=== PATIENT | female | born 1965 | race Caucasian/White ===

== ENCOUNTER 2025-08-09 20:33 | Inpatient (IN) | payer OTHER, SELFPAY ==
--- OUTSIDE RECORDS SUMMARY | 2025-08-08 00:29 | XMS_ITS | Encounter Summary ---
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 Respiratory: No respiratory distress Neuro: Speech is clear however slightly pressured. Gait is normal and steady The patient will remain in observation status until a safe disposition arises. Position pending evaluation by behavioral team Discharge day management more than 30 minutes?: No CHOCO Mancini PA 08/09/25 1130 CHOCO Mancini 08/09/25 1424 * ED Obs Note - Gianni Gardner MD - 08/08/2025 7:36 AM EDT ED Observation Daily Note Service Date: 08/08/2025 Patient seen and examined Patient without any new complaints today remains manic with flight of ideas and pressured speech. Denies suicidal homicidal ideation. 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 General: Comfortable in no apparent distress. Appears manic. HEENT: Atraumatic, normocephalic. Lids normal. External ears are normal in appearance. No external signs of trauma. No epistaxis. Cardiac: Appers well perfused. Pulmonary: Respirations are even and unlabored. No respiratory distress. Abdomen: Appears flat, non-distended. Extremities/MSK: No edema in the legs apparent. Skin: Warm and dry without any rashes visible. Neuro: Alert and oriented x 3, no facial droop, speaking without dysarthria, moving all 4 extremities. Psych: Thought content is illogical and appears manic, not appearing to respond to internal stimuli, speech is pressured speech. Denies suicidal ideation. Remains medically stable for psychiatric placement this morning. Clinical Impression Krista (HCC) (Primary) MD Gianni Ferrari MD 08/08/25 1410 * Psych Progress Note - Elda Crouch - 08/08/2025 6:36 AM EDT Laura is boarding, waiting for Psychiatric IP admission. She was recently discharged from [facility], but they have no beds. [facility] unit is reviewing, and [facility] too. documented in this encounter Plan of Treatment Pending Results Name Type Priority Associated Diagnoses Date /Time ECG 12 lead ECG STAT 08/09/2025 1: 13 PM EDT documented as of this encounter Procedures Procedure Name Priority Date/Time Associated Diagnosis Comments ECG 12-LEAD STAT 08/09/2025 1:13 PM EDT Procedure Note - 08/09/2025 1:13 PM EDTThis note is in progress. SINUS BRADYCARDIA NONSPECIFIC ST ELEVATION [0.05+ mV ST ELEVATION] BORDERLINE ECG SARS COV2/INFLUENZA A/B AND RSV STAT 08/08/2025 6:49 AM EDT DRUG SCREEN, URINE STAT 08/08/2025 1: 44 AM EDT URINALYSIS WITH URINE CULTURE REFLEX STAT 08/08/2025 1:44 AM EDT CBC AND DIFFERENTIAL STAT 08/08/2025 1:43 AM EDT TOXICOLOGY SCREEN, BLOOD STAT 08/08/2025 1:43 AM EDT CBC AND DIFFERENTIAL STAT 08/08/2025 1:43 AM EDT MAGNESIUM Routine 08/08/2025 1:43 AM EDT BASIC METABOLIC PANEL STAT 08/08/2025 1:43 AM EDT documented in this encounter Results * Coronavirus SARS-CoV-2, Influenza A/B and RSV (08/08/2025 6:49 AM EDT) Coronavirus SARS-CoV-2 Negative Negative 08/08/2025 7:45 AM EDT [facility] Influenza A Negative Negative 08/08/2025 7:45 AM EDT [facility] Influenza B Negative Negative 08/08/2025 7:45 AM EDT [facility] RSV by PCR Negative Negative 08/08/2025 7:45 AM EDT [facility] Respiratory NASOPHARYNGEAL SWAB / Unknown Collection / Unknown 08/08/2025 6:49 AM EDT 08/08/2025 6:56 AM EDT [facility] - 08/08/2025 7:45 AM EDT Test performed with goviral GeneXpert SARS-CoV-2 PCR assay, which has received emergency use authorization (EUA) by the U.S. Food and Drug Administration. Negative results do not preclude SARS-CoV-2 infection and should not be used as the sole basis for treatment or other patient management decisions. us Timothy Fernandez MD BODY FLUIDS AND STOOLS ORDERABL ES Final Result [facility] [address] [place] [id number], * (ABNORMAL) Urinalysis with Reflex to Urine Culture (mid-stream) (08/08/2025 1:44 AM EDT) Color, Urine Yellow Yellow 08/08/2025 2:12 AM EDT [facility] Clarity, Urine Clear Clear 08/08/2025 2:12 AM EDT [facility] pH, Urine 7.0(H) 5.0 - 6.0 08/08/2025 2:12 AM [facility] Protein, Urine Negative Negative, 1+ 08/08/2025 2:12 AM [facility] Glucose, Urine Negative Negative 08/08/2025 2:12 AM [facility] Ketone, Urine Trace Negative, Trace 08/08/2025 2:12 AM [facility] Bilirubin, Urine Negative Negative 08/08/2025 2:12 AM [facility] Urobilinogen, Urine Negative 0.2-1.0 mg/dL 08/08/2025 2:12 AM [facility] Blood, Urine Negative Negative 08/08/2025 2:12 AM [facility] Leukocyte Esterase, Urine Negative Negative 08/08/2025 2:12 AM [facility] Nitrite, Urine Negative Negative 08/08/2025 2:12 AM [facility] Specific Elma, Urine 1.013 1.005 - 1.030 08/08/2025 2:12 AM [facility] White Blood Cells, Urine 0-2 <5 cells/HPF 08/08/2025 2:12 AM [facility] Red Blood Cell, Urine 0-2 <2 cells/HPF 08/08/2025 2:12 AM [facility] Bacteria Urine None Seen None Seen 08/08/2025 2:12 AM [facility] Mucous Threads Trace None Seen, Trace 08/08/2025 2:12 AM [facility] Urine MID-STREAM URINE SPECIMEN / Unknown Collection / Unknown 08/08/2025 1:44 AM EDT 08/08/2025 1:48 AM EDT us Timothy Fernandez MD URINE ORDERABLES Final Result [facility] [address] [place] [id number], * Drug Screen, Urine (08/08/2025 1:44 AM EDT) Amphetamines Screen, Urine Negative Negative 08/08/2025 2:18 AM [facility] Barbiturates Screen, Urine Negative Negative 08/08/2025 2:18 AM [facility] Benzodiazepine Screen, Urine Negative Negative 08/08/2025 2:18 AM [facility] Buprenorphine Screen, Urine Negative Negative 08/08/2025 2:18 AM [facility] Cannabinoids Screen, Urine Negative Negative 08/08/2025 2:18 AM [facility] Cocaine Metabolite Screen, Urine Negative Negative 08/08/2025 2:18 AM [facility] Fentanyl Screen, Urine Negative Negative 08/08/2025 2:18 AM [facility] Methadone Screen, Urine Negative Negative 08/08/2025 2:18 AM [facility] Opiates Screen, Urine Negative Negative 08/08/2025 2:18 AM [facility] Oxycodone Screen, Urine Negative Negative 08/08/2025 2:18 AM [facility] Propoxyphene Screen, Urine Negative Negative 08/08/2025 2:18 AM [facility] Tricyclics Screen Negative Negative 2:18 AM [facility] Comment 08/08/2025 2:18 AM [facility] Comment: The cut-off concentration for a positive result for each drug is listed below: Drug Cut-off value Amphetamines >1000 ng/mL Barbiturates >200 ng/mL Benzodiazepines >300 ng/mL Buprenorphine >5 ng/mL Cannabinoids >50 ng/mL Cocaine >300 ng/mL Fentanyl >5.0 ng/mL Opiates >300 ng/mL Methadone >300 ng/mL Oxycodone >100 ng/mL This is only a screening; positive results are not confirmed by a second method; The results must be used for medical purposes only. Urine URINE SPECIMEN / Unknown Collection / Unknown 08/08/2025 1:44 AM EDT 08/08/2025 1:48 AM EDT us Timothy Fernandez MD URINE ORDERABLES Final Result [facility] [address] [place] [id number], [place] * Magnesium (08/08/2025 1:43 AM EDT) Magnesium, Blood 2.1 1.6 - 2.6 mg/dL 08/08/2025 3:13 AM EDT [facility] Blood PERIPHERAL BLOOD SPECIMEN / Unknown Venipuncture / Unknown 08/08/2025 1:43 AM EDT 08/08/2025 1:48 AM EDT us Timothy Fernandez MD LAB BLOOD ORDERABLES Final Resu lt [facility] [address] [place] [address], [place] * CBC and Differential (08/08/2025 1:43 AM EDT) Pathologist [facility] WBC 6.67 3.90 - 10.80 K/uL 08/08/2025 [facility] RBC 4.39 3.93 - 5.29 M/uL 08/08/2025 1:51 AM [facility] Hemoglobin 13.3 12.0 - 15.2 g/dL 08/08/2025 1:51 AM [facility] Hematocrit 40.1 34.1 - 44.9 % 08/08/2025 1:51 AM [facility] MCH 30.3 25.6 - 32.2 pg 08/08/2025 1:51 AM [facility] MCHC 33.2 32.0 - 36.0 g/dL 08/08/2025 1:51 AM [facility] MCV 91 81 - 96 fL 08/08/2025 1:51 AM [facility] RDW 12.6 11.5 - 14.0 % 08/08/2025 1:51 AM [facility] Platelet Count 285 154 - 369 K/uL 08/08/2025 1:51 AM [facility] Neutrophil 59.8 % 08/08/2025 1:51 AM [facility] Lymphocyte 29.4 % 08/08/2025 1:51 AM [facility] Monocyte 8.5 % 08/08/2025 1:51 AM [facility] Eosinophil 1.2 % 08/08/2025 1:51 AM [facility] Basophil 0.7 % 08/08/2025 1:51 AM [facility] Immature Granulocyte (Loring, Myelo, Promyelocyte) 0.4 % 08/08/2025 1:51 [facility] Absolute Neutrophil Count 3.98 1.68 - 7.99 K/uL 08/08/2025 1:51 AM [facility] Absolute Immature Granulocyte (Loring, Myelo, Promyelocyte) 0.03 0.00 - 0.09 K/uL 08/08/2025 1:51 AM [facility] Absolute Lymphocyte Count 1.96 0.66 - 4.75 K/uL 08/08/2025 1:51 AM [facility] Absolute Monocyte Count 0.57 0.16 - 1.40 K/uL 08/08/2025 1:51 AM [facility] Absolute Eosinophil Count 0.08 0.00 - 0.60 K/uL 08/08/2025 1:51 AM [facility] Absolute Basophil Count 0.05 0.00 - 0.32 K/uL 08/08/2025 1:51 AM [facility] Blood PERIPHERAL BLOOD SPECIMEN / Unknown Venipuncture / Unknown 08/08/2025 1:43 AM EDT 08/08/2025 1:48 AM EDT us Timothy Fernandez MD LAB BLOOD ORDERABLES Final Resu lt [facility] [address] [place] [address], [place] * (ABNORMAL) Plasma Toxicology Screen (08/08/2025 1:43 AM EDT) Acetaminophen Result,Blood <5(L) 10 - 30 ug/mL 08/08/2025 2:09 AM [facility] Alcohol <10 <10 mg/dL 08/08/2025 2:09 AM [facility] Salicylate Level, Blood <1 <30 mg/dL 08/08/2025 2:09 AM [facility] Blood PERIPHERAL BLOOD SPECIMEN / Unknown Venipuncture / Unknown 08/08/2025 1:43 AM EDT 08/08/2025 1:48 AM EDT us Timothy Fernandez MD LAB BLOOD ORDERABLES Final Resu lt [facility] [address] [place] [address], * (ABNORMAL) Basic Metabolic Panel (08/08/2025 1:43 AM EDT) Sodium 139 135 - 146 mmol/L 08/08/2025 2:08 AM [facility] Potassium 4.1 3.4 - 5.2 mmol/L 08/08/2025 2:08 AM [facility] Chloride 102 98 - 110 mmol/L 08/08/2025 2:08 AM [facility] Total CO2/Bicarbonat e 24 24 - 32 mmol/L 08/08/2025 2:08 AM [facility] Anion Gap 13 2 - 15 mmol/L 08/08/2025 2:08 AM [facility] Anion Gap 13 2 - 15 mmol/L 08/08/2025 2:08 AM [facility] BUN 13 7 - 24 mg/dL 08/08/2025 2:08 AM [facility] Creatinine, Blood 0.80 0.50 - 1.10 mg/dL 08/08/2025 2:08 AM [facility] Glucose, Blood 111(H) 50 - 100 mg/dL 08/08/2025 2:08 AM [facility] Calcium 9.0 8.5 - 10.5 mg/dL 08/08/2025 2:08 AM [facility] Estimated GFR(CKD-EPI) 84 mL/min/BSA 08/08/2025 2:08 AM [facility] Blood PERIPHERAL BLOOD SPECIMEN / Unknown Venipuncture / Unknown 08/08/2025 1:43 AM EDT 08/08/2025 1:48 AM EDT us Timothy Fernandez MD LAB BLOOD ORDERABLES Final Resu lt [facility] [address] [place] [address], documented in this encounter Visit Diagnoses Diagnosis Krista (HCC)- Primary Bipolar I disorder, single manic episode, unspecified Bipolar affective disorder, manic, severe, with psychotic behavior (HCC) Bipolar I disorder, most recent episode (or current) manic, severe, specified as with psychotic behavior documented in this encounter Administered Medications Inactive Administered Medications - up to 3 most recent administrations Medication Order MAR Action Action Date Dose Rate Site acetaminophen (TYLENOL) tablet 1,000 mg 1,000 mg, Oral, Once, 1 dose, On Fri08/08/25 at 0253 Given 08/08/2025 3:08 AM EDT 1,000 mg docusate sodium (COLACE) 50 mg/5 mL liquid 50 mg 50 mg, Oral, 2 times daily PRN, Starting on Fri08/09/25 at 1048, Until Fri08/09/25 at 2020, constipation ibuprofen (MOTRIN) tablet 400 mg 400 mg, Oral, Once as needed, 1 dose, Starting on Fri08/08/25 at 0252, Until Fri08/08/25 at 2207, mild (1-3) pain, moderate (4-6) pain Given 08/08/2025 10:07 PM EDT 400 mg lamoTRIgine (LaMICtal) tablet 75 mg 75 mg, Oral, Daily, First dose on Fri08/08/25 at 0900, Until Discontinued Given 08/09/2025 9:39 AM EDT 75 mg Given 08/08/2025 8:29 AM EDT 75 mg methyl salicylate-menthol (BENGAY, ICY HOT) cream Topical, Every 6 hours PRN, mild (1-3) pain, moderate (4-6) pain, Starting on Fri08/09/25 at 0856, Apply to affected area naproxen (NAPROSYN) tablet 250 mg 250 mg, Oral, Once, 1 dose, On Fri08/09/25 at 0856 Given 08/09/2025 9:39 AM EDT 250 mg OXcarbazepine (TRILEPTAL) tablet 300 mg 300 mg, Oral, 2 times daily, First dose on Fri08/08/25 at 0900, Until Discontinued Given 08/09/2025 9:39 AM EDT 300 m g Given 08/08/2025 10:07 PM EDT 300 mg Given 08/08/2025 8:29 AM EDT 300 mg perphenazine (TRILAFON) tablet 2 mg 2 mg, Oral, At bedtime, First dose on Fri08/08/25 at 2100, Until Discontinued Given 08/08/2025 10:07 PM EDT 2 mg QUEtiapine (SEROquel) tablet 75 mg 75 mg, Oral, At bedtime, First dose on Fri08/08/25 at 2100, Until Discontinued Given 08/08/2025 10:07 PM EDT 75 mg documented in this encounter Active and Recently Administered Medications Times are shown in EDT. Scheduled Medication Order 08/07/2025 08/08/2025 08/09/2025 acetaminophen (TYLENOL) tablet 1,000 mg (COMPLETED) 1,000 mg, Oral, Once, 1 dose, On Fri08/08/25 at 0253 0308 (Given - Provider: Soheila Gilliam RN) lamoTRIgine (LaMICtal) tablet 75 mg 75 mg, Oral, Daily, First dose on Fri08/08/25 at 0900, Until Discontinued 828 (Given - Provider: An Reyes RN) 09 (Given - Provider: An Reyes RN) naproxen (NAPROSYN) tablet 250 mg (COMPLETED) 250 mg, Oral, Once, 1 dose, On Fri08/09/25 at 0856 0939 (Given - Provid er: An Reyes RN) naproxen (NAPROSYN) tablet 500 mg 500 mg, Oral, At bedtime, First dose on Fri08/08/25 at 2300, Until Discontinued 2252 (Not Given - Provider: Amie Boone RN - Reason: Other - Indicate below - Comment: took ibuprofen) OXcarbazepine (TRILEPTAL) tablet 300 mg 300 mg, Oral, 2 times daily, First dose on Fri08/08/25 at 0900, Until Discontinued 828 (Given - Provider: An Reyes RN)2206 (Given - Provider: Amie Boone RN) 938 (Given - Provider: An Reyes RN) perphenazine (TRILAFON) tablet 2 mg 2 mg, Oral, At bedtime, First dose on Fri08/08/25 at 2100, Until Discontinued 2206 (Given - Provider: Amie Boone RN) QUEtiapine (SEROquel) tablet 75 mg 75 mg, Oral, At bedtime, First dose on Fri08/08/25 at 2100, Until Discontinued 2206 (Given - Provider: Amie Boone RN) PRN Medication Order 08/07/2025 08/08/2025 08/09/2025 diclofenac sodium (VOLTAREN) 1 % gel (pt's own home med) Apply to affected area 3 times a day as needed for aching hands 1 g, Topical, 3 times daily PRN, Starting on Fri08/08/25 at 2231, Until Fri08/09/25 at 2020, aching hands docusate sodium (COLACE) 50 mg/5 mL liquid 50 mg 50 mg, Oral, 2 times daily PRN, Starting on Fri08/09/25 at 1048, Until Fri08/09/25 at 2019, constipation ibuprofen (MOTRIN) tablet 400 mg (COMPLETED) 400 mg, Oral, Once as needed, 1 dose, Starting on Fri08/08/25 at 0252, Until Fri08/08/25 at 2206, mild (1-3) pain, moderate (4-6) pain 2206 (Given - Provider: Amie Boone RN) methyl salicylate-menthol (BENGAY, ICY HOT) cream Topical, Every 6 hours PRN, mild (1-3) pain, moderate (4-6) pain, Starting on Fri08/09/25 at 0856, Apply to affected area documented in this encounter Additional Health Concerns Infection Onset Date Last Indicated Resolved Time Rule-Out Respiratory Virus 08/08/2025 08/08/2025 0 08/08/2025 7:45 AM EDT documented as of this encounter Care Teams Watch Repair Technician Relationship Specialty Start Date End Date Morales Oh [address] [facility] [address] [place] [address] PCP - Insurance Assigned PCP 08/08/25 Morales Oh [address] [facility] [address] [place] [address] PCP - General 08/08/25 documented as of this encounter
--- OUTSIDE RECORDS SUMMARY | 2025-08-09 20:39 | XMS_ITS | Clinical Summary ---
Author Organization [facility] Address [address] [place] [address] Care Team Providers Care Technical Mgr Name Role Phone Morales Oh Unavailable [phone] Morales Ohrandal Primary Care Provider [phone] Allergies Active Allergy Reactions Criticality Noted Date Comments Sulphated Oil Hives Medications * This document contains information received from the source organization and may not represent a complete record from that organization. lamoTRIgine (LaMICtal) 150 MG tablet Take 0.5 tablets (75 mg total) by mouth daily. 5 Active OXcarbazepine (TRILEPTAL) 150 MG tablet Take 2 tablets (300 mg total) by mouth 2 times a day. Active perphenazine (TRILAFON) 2 MG tablet Take 1 tablet (2 mg total) by mouth at bedtime. Active QUEtiapine (SEROquel) 25 MG tablet Take 3 tablets (75 mg total) by mouth at bedtime. Active diclofenac sodium (VOLTAREN) 1 % GelIndications: pain Apply 1 g topically 3 times a day as needed (pain). Active naproxen (EC NAPROSYN) 500 MG EC tablet Take 1 tablet (500 mg total) by mouth at bedtime. Active Encounters Date Type Department Care Team Description 08/08/2025 12:29 AM EDT - 08/09/2025 5:45 PM EDT Hospital Encounter [facility] Emergency Department [address] [place] [address] Timothy Fernandez MD [place]field, Scott, MD Gacioch, Brian Q, MD Snyder, Michael, MD Casillas, Yolie E, DO Estela (HCC) (Primary Dx); Bipolar affective disorder, manic, severe, with psychotic behavior (HCC) Discharge Disposition: Psychiatric Hospital 08/08/2025 Travel from Last 3 Months Family History Medical History Relation Comments Depression Father Post-traumatic stress disorder Mother Relation Status Comments Father Mother Social History Tobacco Use Types Packs/Day Years [...] any time in the past 12 m [facility], were you homeless or living in a care home (including now)? No 08/08/2025 [facility] Utilities Answer Date Recorded In the past [...] AM EDT Sexual Orientation Not on file Last Filed Vital Signs Vital Sign Reading Time Taken Comments Blood Pressure 130/88 08/09/2025 5:41 PM EDT Pulse 58 08/09/2025 5:41 PM EDT Temperature 36.5 C (97.7 F) 08/09/2025 7:21 AM EDT Respiratory Rate 18 08/09/2025 5:41 PM EDT Oxygen Saturation 98% 08/09/2025 5:41 PM EDT Inhaled Oxygen Concentration - - Weight - - Height - - Body Mass Index - - Plan of Treatment Health Maintenance Due Date Last Done Comments Lipid Panel 1964 Depression Screening 1968 Hepatitis C Screening 1982 DTaP,Tdap,and Td Vaccines (1 - Tdap) 1983 Pap Smear 1985 Cervical Cancer Screening 1994 HPV/Cotest 1994 Breast Cancer Screening 2004 CT Colonography 2009 Colonoscopy 2009 Colorectal Cancer Screening 2009 FIT 2009 FOBT 2009 Multitarget Stool DNA (Cologuard) 2009 Sigmoidoscopy 2009 Pneumococcal Vaccine (1 of 1 - PCV) 2014 Zoster Vaccine (1 of 2) 2014 COVID-19 Vaccine (1 - 2023-2 5 season) 2025 Influenza Vaccine (#1) 2025 Blood Pressure 08/09/2026 08/09/2025 Meningococcal B Vaccines Aged Out No longer eligible based on patient's age to complete this topic Meningococcal Vaccines Aged Out No lo nger eligible based on patient's age to complete this topic Pneumococcal Vaccine: Pediat rics (0 to 5 Years) and At-Risk Patients (6 to 64 Years) Aged Out No longer eligi ble based on patient's age to complete this topic Procedures Procedure Name Priority Date/Time Associated Diagnosis Comments ECG 12-LEAD STAT 08/09/2025 1:13 PM EDT Procedure Note - 08/09/2025 1:13 PM EDTThis note is in progress. SINUS BRADYCARDIA NONSPECIFIC ST ELEVATION [0.05+ mV ST ELEVATION] BORDERLINE ECG SARS COV2/INFLUENZA A/B AND RSV STAT 08/08/2025 6:49 AM EDT URINALYSIS WITH URINE CULTURE REFLEX STAT 08/08/2025 1:44 AM EDT DRUG SCREEN, URINE STAT 08/08/2025 1: 44 AM EDT CBC AND DIFFERENTIAL STAT 08/08/2025 1:43 AM EDT MAGNESIUM Routine 08/08/2025 1:43 AM EDT CBC AND DIFFERENTIAL STAT 08/08/2025 1:43 AM EDT TOXICOLOGY SCREEN, BLOOD STAT 08/08/2025 1:43 AM EDT BASIC METABOLIC PANEL STAT 08/08/2025 1:43 AM EDT from Last 3 Months Results * Coronavirus SARS-CoV-2, Influenza A/B and RSV (08/08/2025 6:49 AM EDT) Coronavirus SARS-CoV-2 Negative Negative 08/08/2025 7:45 AM EDT [facility] Influenza A Negative Negative 08/08/2025 7:45 AM EDT [facility] Influenza B Negative Negative 08/08/2025 7:45 AM EDT [facility] RSV by PCR Negative Negative 08/08/2025 7:45 AM EDT [facility] Respiratory NASOPHARYNGEAL SWAB / Unknown Collection / Unknown 08/08/2025 6:49 AM EDT 08/08/2025 6:56 AM EDT [facility] - 08/08/2025 7:45 AM EDT Test performed with [employer] GeneXpert SARS-CoV-2 PCR assay, which has received emergency use authorization (EUA) by the U.S. Food and Drug Administration. Negative results do not preclude SARS-CoV-2 infection and should not be used as the sole basis for treatment or other patient management decisions. us Timothy Fernandez MD BODY FLUIDS AND STOOLS ORDERABL ES Final Result [facility] [address] [place] [address], * Drug Screen, Urine (08/08/2025 1:44 AM EDT) Amphetamines Screen, Urine Negative Negative 08/08/2025 2:18 AM EDT [facility] Barbiturates Screen, Urine Negative Negative 08/08/2025 2:18 AM EDT [facility] Benzodiazepine Screen, Urine Negative Negative 08/08/2025 2:18 AM [facility] Buprenorphine Screen, Urine Negative Negative 08/08/2025 2:18 AM [facility] Cannabinoids Screen, Urine Negative Negative 08/08/2025 2:18 AM [facility] Cocaine Metabolite Screen, Urine Negative Negative 08/08/2025 2:18 AM [facility] Fentanyl Screen, Urine Negative Negative 08/08/2025 2:18 AM [facility] Methadone Screen, Urine Negative Negative 08/08/2025 2:18 AM [facility] Opiates Screen, Urine Negative Negative 08/08/2025 2:18 AM [facility] Oxycodone Screen, Urine Negative Negative 08/08/2025 2:18 AM [facility] Propoxyphene Screen, Urine Negative Negative 08/08/2025 2:18 AM [facility] Tricyclics Screen Negative Negative 2:18 AM [facility] Comment 08/08/2025 2:18 AM [facility] Comment: The cut-off concentration for [...] Timothy Fernandez MD URINE ORDERABLES Final Result [facility] [address] [place] [address], [place] * (ABNORMAL) Urinalysis with Reflex to Urine Culture (mid-stream) (08/08/2025 1:44 AM EDT) Color, Urine Yellow Yellow 08/08/2025 2:12 AM [facility] Clarity, Urine Clear Clear 08/08/2025 2:12 AM [facility] pH, Urine 7.0(H) 5.0 - 6.0 08/08/2025 2:12 AM [facility] Protein, Urine Negative Negative, 1+ 08/08/2025 2:12 AM [facility] Glucose, Urine Negative Negative 08/08/2025 2:12 AM [facility] Ketone, Urine Trace Negative, Trace 08/08/2025 2:12 AM [facility] Bilirubin, Urine Negative Negative 08/08/2025 2:12 AM [facility] Urobilinogen, Urine Negative 0.2-1.0 mg/dL 08/08/2025 2:12 AM [facility] Blood, Urine Negative Negative 08/08/2025 2:12 AM [facility] Leukocyte Esterase, Urine Negative Negative 08/08/2025 2:12 AM [facility] Nitrite, Urine Negative Negative 08/08/2025 2:12 AM [facility] Specific [place], Urine 1.013 1.005 - 1.030 08/08/2025 2:12 AM [facility] White Blood Cells, Urine 0-2 <5 cells/HPF 08/08/2025 2:12 AM [facility] Red Blood Cell, Urine 0-2 <2 cells/HPF 08/08/2025 2:12 AM [facility] Bacteria Urine None Seen None Seen 08/08/2025 2:12 AM [facility] Mucous Threads Trace None Seen, Trace 08/08/2025 2:12 AM [facility] Urine MID-STREAM URINE SPECIMEN / Unknown Collection / Unknown 08/08/2025 1:44 AM EDT 08/08/2025 1:48 AM EDT Timothy Fernandez MD URINE ORDERABLES Final Result [facility] [address] [place] [address], * CBC and Differential (08/08/2025 1:43 AM EDT) WBC 6.67 3.90 - 10.80 K/uL [facility] RBC 4.39 3.93 - 5.29 M/uL 08/08/2025 1:51 AM [facility] Hemoglobin 13.3 12.0 - 15.2 g/dL 08/08/2025 1:51 AM [facility] Hematocrit 40.1 34.1 - 44.9 % 08/08/2025 1:51 AM [facility] MCH 30.3 25.6 - 32.2 pg 08/08/2025 1:51 AM [facility] MCHC 33.2 32.0 - 36.0 g/dL 08/08/2025 1:51 AM [facility] MCV 91 81 - 96 fL 08/08/2025 1:51 AM [facility] RDW 12.6 11.5 - 14.0 % 08/08/2025 1:51 AM [facility] Platelet Count 285 154 - 369 K/uL 08/08/2025 1:51 AM [facility] Neutrophil 59.8 % 08/08/2025 1:51 AM [facility] Lymphocyte 29.4 % 08/08/2025 1:51 AM [facility] Monocyte 8.5 % 08/08/2025 1:51 AM [facility] Eosinophil 1.2 % 08/08/2025 1:51 AM [facility] Basophil 0.7 % 08/08/2025 1:51 AM [facility] Immature Granulocyte ([place], Myelo, Promyelocyte) 0.4 % 08/08/2025 1:51 AM [facility] Absolute Neutrophil Count 3.98 1.68 - 7.99 K/uL 08/08/2025 1:51 AM [facility] Absolute Immature Granulocyte ([place], Myelo, Promyelocyte) 0.03 0.00 - 0.09 K/uL 08/08/2025 1:51 AM EDT [facility] Absolute Lymphocyte Count 1.96 0.66 - 4.75 K/uL 08/08/2025 1:51 AM [facility] Absolute Monocyte Count 0.57 0.16 - 1.40 K/uL 08/08/2025 1:51 AM [facility] Absolute Eosinophil Count 0.08 0.00 - 0.60 K/uL 08/08/2025 1:51 AM [facility] Absolute Basophil Count 0.05 0.00 - 0.32 K/uL 08/08/2025 1:51 AM [facility] Blood PERIPHERAL BLOOD SPECIMEN / Unknown Venipuncture / Unknown 08/08/2025 1:43 AM EDT 08/08/2025 1:48 AM EDT us Timothy Fernandez MD LAB BLOOD ORDERABLES Final Resu lt Performing Organization Address [facility]/ZIP Co de Phone Number [facility] [address] [place] [phone], [place] * (ABNORMAL) Plasma Toxicology Screen (08/08/2025 1:43 AM EDT) Pathologist [facility] Acetaminophen Result,Blood <5(L) 10 - 30 ug/mL 08/08/2025 2:09 AM EDT [facility] Alcohol <10 <10 mg/dL 08/08/2025 2:09 AM EDT [facility] Salicylate Level, Blood <1 <30 mg/dL 08/08/2025 2:09 AM EDT [facility] Blood PERIPHERAL BLOOD SPECIMEN / Unknown Venipuncture / Unknown 08/08/2025 1:43 AM EDT 08/08/2025 1:48 AM EDT us Timothy Fernandez MD LAB BLOOD ORDERABLES Final Resu lt Performing Organization Address [facility]/ZIP Co de Phone Number [facility] [address] [place] [address], [place] * Magnesium (08/08/2025 1:43 AM EDT) Pathologist [facility] Magnesium, Blood 2.1 1.6 - 2.6 mg/dL 08/08/2025 3:13 AM [facility] Blood PERIPHERAL BLOOD SPECIMEN / Unknown Venipuncture / Unknown 08/08/2025 1:43 AM EDT 08/08/2025 1:48 AM EDT us Timothy Fernandez MD LAB BLOOD ORDERABLES Final Resu lt [facility] [address] [place] [address], [place] * (ABNORMAL) Basic Metabolic Panel (08/08/2025 1:43 AM EDT) [facility] Sodium 139 135 - 146 mmol/L 08/08/2025 2:08 AM [facility] Potassium 4.1 3.4 - 5.2 mmol/L 08/08/2025 2:08 AM [facility] Chloride 102 98 - 110 mmol/L 08/08/2025 2:08 AM [facility] Total CO2/Bicarbonat e 24 24 - 32 mmol/L 08/08/2025 2:08 AM [facility] Anion Gap 13 2 - 15 mmol/L 08/08/2025 2:08 AM [facility] Anion Gap 13 2 - 15 mmol/L 08/08/2025 2:08 AM [facility] BUN 13 7 - 24 mg/dL 08/08/2025 2:08 AM [facility] Creatinine, Blood 0.80 0.50 - 1.10 mg/dL 08/08/2025 2:08 AM [facility] Glucose, Blood 111(H) 50 - 100 mg/dL 08/08/2025 2:08 AM [facility] Calcium 9.0 8.5 - 10.5 mg/dL 08/08/2025 2:08 AM [facility] Estimated GFR(CKD-EPI) 84 mL/min/BSA 08/08/2025 2:08 AM [facility] Blood PERIPHERAL BLOOD SPECIMEN / Unknown Venipuncture / Unknown 08/08/2025 1:43 AM EDT 08/08/2025 1:48 AM EDT us Timothy Fernandez MD LAB BLOOD ORDERABLES Final Resu lt [facility] [address] [place] [address], [place] from Last 3 Months Insurance [employer] (HMO) Address: [address] [place] [address] [employer] (HMO) Address: [address] [place] [address] Care Teams Technical Mgr Relationship Specialty Start Date End Date Morales Oh 22 [facility] Primary Care [address] [place] [id number] PCP - Insurance Assigned PCP 08/08/25 Morales Oh 22 [facility] Primary [facility] [address] [place] [id number] PCP - General 08/08/25
--- OUTSIDE RECORDS SUMMARY | 2025-08-09 20:39 | XMS_ITS | Clinical Summary ---
Author Organization [facility] Address [address] [facility] [address] Phone Care Team Providers Care Wrapper Stitcher Name Role Phone Jacklyn Prieto MD Primary Care Provider Social History Tobacco Use Types Packs/Day Years Used Date Smoking Tobacco: Never Assessed Comments Unknown Sex and Gender Information Value Date Recorded Sex Assigned at Not on file Legal Sex Female 8:12 AM EDT Gender Identity Not on file Sexual Orientation Not on file Plan of Treatment Not on file Care Teams Wrapper Stitcher Relationship Specialty Start Date End Date Jacklyn Prieto MD PCP - General 05/29/17
--- OUTSIDE RECORDS SUMMARY | 2025-08-09 20:39 | XMS_ITS | Encounter Summary ---
Author Organization [facility] Address [address] [place] [address] Care Team Providers Care Oven Dauber Name Role Phone Morales Oh Unavailable [phone] Morales Ohjack Primary Care Provider [phone] Encounter Details Date Type Department Care Team (Latest Contact Info) Description 08/08/2025 Travel Social History Tobacco Use Types Packs/Day Years [...] any time in the past 12 m [facility], were you homeless or living in a alf (including now)? No 08/08/2025 [facility] Utilities Answer Date Recorded In the past 12 months has e electric, gas, oil, or water company [...] on file documented as of this encounter Plan of Treatment Not on file documented as of this encounter Visit Diagnoses Not on filedocumented in this encounter Additional Health Concerns Infection Onset Date Last Indicated Resolved Time Rule-Out Respiratory Virus 08/08/2025 08/08/2025 0 08/08/2025 7:45 AM EDT documented as of this encounter Care Teams Oven Dauber Relationship Specialty Start Date End Date Morales Oh 22 [facility] Primary Care [address] [place] [id number] PCP - Insurance Assigned PCP 08/08/25 Morales Oh 22 [facility] Primary Care [address] [place] [phone] PCP - General 08/08/25 documented as of this encounter
[2025-08-09 21:05] VITALS: BP 172/82; PULSE 60; RESP 18; TEMP 36.4; O2SAT 96
[2025-08-09 22:25] VITALS: BP 177/92; PULSE 61
[2025-08-09 22:39] VITALS: BMI 25.3
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
[2025-08-10 08:00] VITALS: BP 114/66; PULSE 64; RESP 16; TEMP 36.4; O2SAT 98
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
[2025-08-10 19:50] VITALS: BP 136/71; PULSE 64; TEMP 36.1; O2SAT 98
[2025-08-11 01:37] VITALS: BP 111/70; PULSE 74
[2025-08-11 07:00] VITALS: BMI 25.4
[2025-08-11 07:48] VITALS: BP 118/78; PULSE 66; RESP 16; TEMP 36.4; O2SAT 98
[2025-08-11 08:22] LABS: Hemoglobin A1C 134.7244 umol/L; Total Hemoglobin (HGBA1C) 3475.7575 umol/L
[2025-08-11 08:37] LABS: Alanine Aminotransferase 51 U/L (0-31); Albumin Level 4.3 g/dL (3.5-5.0); Alkaline Phosphatase 82 U/L (39-117); Anion Gap 11 (12-20); Aspartate Amino Transferase 36 U/L (5-31); Blood Urea Nitrogen 22 mg/dL (9-16); Calcium 9.2 mg/dL (8.4-10.2); Carbon Dioxide 28 mmol/L (22-29); Chloride 105 mmol/L (96-108); Cholesterol 183 mg/dL (<200); Creatinine Clr Calc Pharmacy 74.4; Estimated Glomerular Filt Rate > 60; HDL Cholesterol 59 mg/dL (>40); Potassium 4.8 mmol/L (3.3-5.1); Sodium 139 mmol/L (135-145); Total Protein 6.9 g/dL (6.5-8.0); Triglycerides 99 mg/dL (<150)
[2025-08-11 08:53] LABS: Free T4 (Free Thyroxine) 0.88 ng/dL (0.71-1.85); Thyroid Stimulating Hormone 5.59 uIU/mL (0.32-4.0)
[2025-08-11 11:38] VITALS: BMI 25.4
--- NOTE | 2025-08-11 16:59 | HO.PSYCHPN ---
Subjective Subjective Date of Service: 08/11/25 Reason For Visit: Manic behavior - Decomp Subjective Notes: 3 Day Healthcare Proxy: Yes Guardianship: No Medical Problems Affecting Mental Status: No Interim History: Medical record and nursing notes reviewed; case discussed during rounds with team/nursing staff, and met with patient for supportive therapy/psychoeducation, as well as medication management. Patient slept for 6 hours with restless sleep. Per nursing, patient appeared to be confused after taking trazodone. Patient give me the scenarios what was happening at night and she able to recall what she did during the night. She said is not confused, but she should take low dose of trazodone instead. Per record, she was given trazodone with the hydroxyzine and naproxen at around 01:26 in the morning. She remembers she was eating the cookie and milk and waking up crumbs and paper on her body. Advised patient not to combine them. Trazodone is now discontinued. We will revisit if patient needs it. Patient is tangential, very hyperverbal, sometimes not able to stay in the topic. Continue to perseveration on current boyfriend. She also would like to send her phone to the police where they can check the evidence of videos and screen shots as evidence for suspecting the boyfriend or some stranger being around in the house. She also asked what she should do, or should she file restraining order against her boyfriend. Some what her best friend told her that she may have psychosis break. Patient was advised to not making any big decision that could make her feel regret later on when she gets better as for now she is not stable enough. Patient also confused with the 3 day notice, to different staff to confirmed that she signed a 3 days on the day she came in which she did it with me yesterday. If she continues to improve, we will most likely to discharge on Friday. However, it is too early to decide if she is could be stable by that time. She is pleasant, anxious, but cooperative. Continue sharing a long story about her life. She verbally love this provider to call her son Paul at [phone] who called to the healthcare social worker left voice message saying that he is a healthcare proxy, and power of bankruptcy attorney of his mom. Called Paul the above number, left voice message, with a number to call back. Waiting for response. Armen called back, was in the middle of conversation but was not having good signal. Therefore, will touch base with him another time. Per Armen, his mom basiclly comes to hospital and have episode once yearl. Regarding meds, Armen said it is in a black hole as no one is sure if his mom is compliant with meds or not. He also reports that the paranoid regarding his mom's boyfriend is not reality based. Update Paul with current manic behaviors and possible paranoid thoughts regarding her boyfriend but not about other stuff/other people. Review of Systems Review of Systems Constitutional: Denies fatigue and Denies fever(s) Cardiovascular: Denies chest pain and Denies dyspnea Respiratory: Denies dyspnea Gastrointestinal: Denies abdominal pain Psychiatric: denies suicidal ideation Endocrine: Denies fatigue Mild diminished bruises seen on left side of the face. Yes all other systems are reviewed and are negative Mental Status Exam Mental Status Exam Narrative: Patient is alert and oriented; behavior is cooperative, friendly with mild to moderate anxiety; patient is not in distress; dressed in hospital and casual attire with kempt hair and adequate hygiene; mood is anxious and affect congruent; eye contact appropriate; Speech is normal rate, volume and prosody and not pressured; but very hyperverbal, no psychomotor agitation/retardation present; thought process is disorganized mostly with racing,hyper focus on 3-day notice, mostly goal directed with tangential. Thought content is WNL, pertinent to relevant topics. Appear to be paranoid regarding the boyfriend; denies any SI/SIB/HI. Denies AH and there is no evidence of perceptual disturbance. Patient's insight and judgment impaired . Diagnostics Vital Signs (24Hr): Vital Signs - 24 hr 08/10/25 19:50 08/11/25 01:37 08/11/25 07:48 Temperature 97.0 F 97.5 F Pulse Rate 64 74 66 Respiratory Rate 16 Blood Pressure 136/71 111/70 118/78 Pulse Oximetry 98 98 Oxygen Delivery Method Room Air Room Air BMI result Body Mass Index 25.4 Labs 08/11/25 07:56 Labs: Laboratory Results - last 48 hr 08/11/25 08/11/25 07:56 07:57 Sodium 139 Potassium 4.8 Chloride 105 Carbon Dioxide 28 Anion Gap 11 L BUN 22 H Creatinine 0.79 Estim Creat Clear Calc 74.4 Estimated GFR > 60 Random Glucose 91 Estimat Average Glucose 117 Hemoglobin A1c % 5.7 Calcium 9.2 Total Bilirubin 0.2 AST 36 H ALT 51 H Alkaline Phosphatase 82 Total Protein 6.9 Albumin 4.3 Triglycerides 99 Cholesterol 183 LDL Cholesterol, Calc 105 H HDL Cholesterol 59 TSH 5.59 H Free T4 0.88 Medications Medications Current Medications Acetaminophen (Acetaminophen 325 Mg Tablet) 650 mg PO Q6H PRN PRN Reason: Headache/Pain, Scale 1-10 Last Admin: 08/10/25 16:40 Dose: 650 mg Al Hydroxide/Mg Hydroxide (Magnesium Hydrox/Alum Hydrox 30 Ml Oral.Susp) 30 ml PO Q6H PRN PRN Reason: Heartburn/Nausea Capsaicin (Capsaicin 0.025% Cream 60 Gm Tube) 1 appl TOPICAL TID PRN; Protocol PRN Reason: Pain, Mild (Pain Scale 1-3) Hydroxyzine HCl (Hydroxyzine Hcl 25 Mg Tablet) 25 mg PO Q6H PRN PRN Reason: mild anxiety Last Admin: 08/11/25 01:27 Dose: 25 mg Lamotrigine (Lamotrigine 100 Mg Tablet) 100 mg PO DAILY [facility] Magnesium Hydroxide (Milk Of Magnesia 30 Ml Oral.Susp) 30 ml PO DAILY PRN PRN Reason: Constipation Magnesium Oxide (Magnesium Oxide 400 Mg Tablet) 400 mg PO BEDTIME [facility] Last Admin: 08/10/25 22:05 Dose: 400 mg Naproxen (Naproxen 500 Mg Tablet) 500 mg PO Q12H PRN PRN Reason: Pain, Moderate(Pain Scale 4-6) Last Admin: 08/11/25 01:25 Dose: 500 mg Nicotine (Nicotine 21 Mg Patch.Td24) 21 mg TRANSDERMA DAILY PRN PRN Reason: nicotine craving Nicotine Polacrilex (Nicotine Polacrilex 2 Mg Gum) 2 mg BUCCAL Q2H PRN PRN Reason: Nicotine Cravings Oxcarbazepine (Oxcarbazepine 300 Mg Tablet) 300 mg PO BID [facility] Last Admin: 08/11/25 08:31 Dose: 300 mg Perphenazine (Perphenazine 2 Mg Tablet) 2 mg PO BEDTIME PRN PRN Reason: Insomnia Quetiapine Fumarate (Quetiapine Fumarate 25 Mg Tablet) 75 mg PO BEDTIME [facility] Last Admin: 08/10/25 22:04 Dose: 75 mg Quetiapine Fumarate (Quetiapine Fumarate 25 Mg Tablet) 12.5 mg PO BID PRN PRN Reason: agitation/severe anxiety Last Admin: 08/11/25 01:26 Dose: 12.5 mg Allergies Allergies Allergy/AdvReac Type Severity Reaction Status Date / Time No Known Allergies Allergy Verified 08/09/25 21:18 Assessment & Plan Assessment & Plan (1) Bipolar affective, manic, unspec: Status: Acute Code(s): F31.10 - Bipolar disorder, current episode manic without psychotic features, unspecified (2) PTSD (post-traumatic stress disorder): Status: Acute Code(s): F43.10 - Post-traumatic stress disorder, unspecified (3) Arthritis: Status: Acute Code(s): M19.90 - Unspecified osteoarthritis, unspecified site Plan HPI: Patient is a 59 y.o divorce Kiswahili speaking female with past medical and psychiatric history of bipolar, PTSD, arithritist, osteoporosis referred to [facility] from ED. Patient presented to ED from home on 08/08/2025. She call 911 for wellness checks after and her best friend as her to get herself evaluated with concerns for her safety and mental status. Patient has been acting erratic, not sleeping, moving stuff around in her home 23/06, driving recklessly at high speed, texting threats to her partner, calling her partner's customers, and employees with threats. Formulation/clinical reasoning: ? If medication compliant, increase in manic behavior, paranoid/delusional. History of PTSD, bipolar. Was recently discharged at the beginning of the month from psychiatric hospital when she was not stable. Patient presented with manic behaviors that put herself at risk for safety. We will continue to monitor, medication adjustment, and provide therapeutic environment and groups for coping skills. We will refer patient back to outpatient psychiatric services and therapist for aftercare Hospital course: 08/10/25: Continue Lamictal 75 mg daily for mood. Trileptal 300 twice a day for mood. Seroquel 75 mg at bedtime for insomnia/mood 12.5 mg b.i.d. p.r.n. for agitation or severe anxiety. Perphenazine 2 mg p.r.n. at bedtime. Naproxen 500 b.i.d. p.r.n. arthritis. Trazodone as needed for insomnia. 08/11/25: Patient slept for 6 hours with restless sleep. Per nursing, patient appeared to be confused after taking trazodone. Patient give me the scenarios what was happening at night and she able to recall what she did during the night. She said is not confused, but she should take low dose of trazodone instead. Per record, she was given trazodone with the hydroxyzine and naproxen at around 01:26 in the morning. She remembers she was eating the cookie and milk and waking up crumbs and paper on her body. Advised patient not to combine them. Trazodone is now discontinued. We will revisit if patient needs it. Patient is tangential, very hyperverbal, sometimes not able to stay in the topic. Continue to perseveration on current boyfriend. She also would like to send her phone to the police where they can check the evidence of videos and screen shots as evidence for suspecting the boyfriend or some stranger being around in the house. She also asked what she should do, or should she file restraining order against her boyfriend. Some what her best friend told her that she may have psychosis break. Patient was advised to not making any big decision that could make her feel regret later on when she gets better as for now she is not stable enough. Patient also confused with the 3 day notice, to different staff to confirmed that she signed a 3 days on the day she came in which she did it with me yesterday. If she continues to improve, we will most likely to discharge on Friday. However, it is too early to decide if she is could be stable by that time. She is pleasant, anxious, but cooperative. Continue sharing a long story about her life. She verbally love this provider to call her son Paul at [phone] who called to the healthcare social worker left voice message saying that he is a healthcare proxy, and power of bankruptcy attorney of his mom. Called Paul the above number, left voice message, with a number to call back. Waiting for response. Armen called back, was in the middle of conversation but was not having good signal. Therefore, will touch base with him another time. Per Armen, his mom basiclly comes to hospital and have episode once yearl. Regarding meds, Armen said it is in a black hole as no one is sure if his mom is compliant with meds or not. He also reports that the paranoid regarding his mom's boyfriend is not reality based. Update Paul with current manic behaviors and possible paranoid thoughts regarding her boyfriend but not about other stuff/other people. Discontinue Trazodone. Will revisit. Increase Lacmital up to 100mg daily in the morning. Plan Patient on 15 minute checks for safety. Admitted to M3. [facility]. Signed 3 day notice up on 08/15/25- Friday. Work with treatment team to do collateral and FLU appointments for aftercare. Spoke with Paul- Son at [phone]. Will touch base with him again next day as d/t the bad/weak phone signal, not able to complete the update. Contact the hospitalist regarding hospitalist consultation on admission: seen by Hospitalist on 08/10/25. Patient educated on: diagnosis, medication risk/benefits and therapeutic strategies Informed Consent: further education needed Reason for continued inpatient stay Substantial Risk for: med/psych decompensation Time Spent With Patient Time: Total time managing care of this patient today ____ minutes.
[2025-08-11 20:00] VITALS: BP 152/67; PULSE 67; RESP 16; TEMP 36.8; O2SAT 98
[2025-08-12 08:00] VITALS: BP 130/62; PULSE 65; RESP 14; TEMP 36.4; O2SAT 99
[2025-08-12 19:55] VITALS: BP 135/69; PULSE 71; RESP 18; TEMP 36.9; O2SAT 97
--- NOTE | 2025-08-12 22:04 | P.PNPSI_ITS ---
Subjective Subjective Date of Service: 08/12/25 Reason For Visit: Manic behavior - Decomp Subjective Notes: 3 Day Healthcare Proxy: No Guardianship: No Medical Problems Affecting Mental Status: No Interim History: Medical record and nursing notes reviewed; case discussed during rounds with team/nursing staff, and met with patient for supportive therapy/psychoeducation, as well as medication management. Patient only slept 3-1/2 hours, medication compliant. However, per nursing and and other disciplines report, patient appeared to be more manic today. Not able to stay in a topic. Disorganized, but pleasant and cooperative. She appears to be very busy on the phone all day long today in between groups. Patient agrees if she is not getting better by Friday she can stay a little bit longer than Friday. Discussed with patient regarding medication plan. Patient does not agree with the Seroquel increased up to 100 tonight but agrees with adding melatonin and trazodone as needed-25 mg only p.r.n.. She agreed that by tomorrow if she is still not able to sleep, Seroquel up to 100 mg. Reports constipated, and agreed to take Colace twice a day. Appears to have increased appetite, appeared to be tired today, but not resting, racing thoughts, tried to organize the stuff at home from here via phone. Patient continued to believe that the medial she has is evidence of the boyfriend someone did something make her be in danger. Medication Compliance: Yes Side effects from medications: No Attending Groups: Yes Review of Systems Acute medical concerns: No Medical Review of Systems: unchanged Review of Systems Review of Systems Constitutional: Denies fatigue and Denies fever(s) Cardiovascular: Denies chest pain and Denies dyspnea Respiratory: Denies dyspnea Gastrointestinal: Denies abdominal pain but constipated. Psychiatric: denies suicidal ideation Endocrine: Denies fatigue Mild diminished bruises seen on left side of the face. Yes all other systems are reviewed and are negative Mental Status Exam Mental Status Exam Narrative: Patient is alert and oriented; behavior is cooperative, friendly with mild to moderate anxiety; patient is not in distress; dressed in casual attire with kempt hair and adequate hygiene; mood is anxious with racing thoughts and affect congruent; eye contact appropriate; Speech is normal rate, volume and prosody and not pressured; but very hyperverbal, no psychomotor agitation/retardation present; thought process is disorganized mostly with racing,hyper focus on arranging stuff at home via phone, tangential. Thought content is WNL, pertinent to relevant topics at times. Appear to be paranoid regarding the boyfriend; denies any SI/SIB/HI. Denies AH and there is no evidence of perceptual disturbance. Patient's insight and judgment impaired . Diagnostics Vital Signs (24Hr): Vital Signs - 24 hr 08/12/25 08:00 08/12/25 19:55 Temperature 97.5 F 98.4 F Pulse Rate 65 71 Respiratory Rate 14 18 Blood Pressure 130/62 135/69 Pulse Oximetry 99 97 Oxygen Delivery Method Room Air Room Air BMI result Body Mass Index 25.4 Labs 08/11/25 07:56 Labs: Laboratory Results - last 48 hr 08/11/25 08/11/25 07:56 07:57 Sodium 139 Potassium 4.8 Chloride 105 Carbon Dioxide 28 Anion Gap 11 L BUN 22 H Creatinine 0.79 Estim Creat Clear Calc 74.4 Estimated GFR > 60 Random Glucose 91 Estimat Average Glucose 117 Hemoglobin A1c % 5.7 Calcium 9.2 Total Bilirubin 0.2 AST 36 H ALT 51 H Alkaline Phosphatase 82 Total Protein 6.9 Albumin 4.3 Triglycerides 99 Cholesterol 183 LDL Cholesterol, Calc 105 H HDL Cholesterol 59 TSH 5.59 H Free T4 0.88 Medications Medications Current Medications Acetaminophen (Acetaminophen 325 Mg Tablet) 650 mg PO Q6H PRN PRN Reason: Headache/Pain, Scale 1-10 Last Admin: 08/10/25 16:40 Dose: 650 mg Al Hydroxide/Mg Hydroxide (Magnesium Hydrox/Alum Hydrox 30 Ml Oral.Susp) 30 ml PO Q6H PRN PRN Reason: Heartburn/Nausea Capsaicin (Capsaicin 0.025% Cream 60 Gm Tube) 1 appl TOPICAL TID PRN; Protocol PRN Reason: Pain, Mild (Pain Scale 1-3) Last Admin: 08/12/25 09:27 Dose: 1 appl Docusate Sodium (Docusate Sodium 100 Mg Capsule) 100 mg PO BID [facility] Last Admin: 08/12/25 21:56 Dose: 100 mg Hydroxyzine HCl (Hydroxyzine Hcl 25 Mg Tablet) 25 mg PO Q6H PRN PRN Reason: mild anxiety Last Admin: 08/11/25 01:27 Dose: 25 mg Lamotrigine (Lamotrigine 100 Mg Tablet) 100 mg PO DAILY [facility] Last Admin: 08/12/25 08:12 Dose: 100 mg Magnesium Hydroxide (Milk Of Magnesia 30 Ml Oral.Susp) 30 ml PO DAILY PRN PRN Reason: Constipation Magnesium Oxide (Magnesium Oxide 400 Mg Tablet) 400 mg PO BEDTIME [facility] Last Admin: 08/12/25 21:52 Dose: 400 mg Melatonin (Melatonin 3 Mg Tablet) 6 mg PO BEDTIME [facility] Last Admin: 08/12/25 21:54 Dose: 6 mg Naproxen (Naproxen 500 Mg Tablet) 500 mg PO Q12H PRN PRN Reason: Pain, Moderate(Pain Scale 4-6) Last Admin: 08/11/25 23:33 Dose: 500 mg Nicotine (Nicotine 21 Mg Patch.Td24) 21 mg TRANSDERMA DAILY PRN PRN Reason: nicotine craving Nicotine Polacrilex (Nicotine Polacrilex 2 Mg Gum) 2 mg BUCCAL Q2H PRN PRN Reason: Nicotine Cravings Oxcarbazepine (Oxcarbazepine 300 Mg Tablet) 300 mg PO BID [facility] Last Admin: 08/12/25 21:55 Dose: 300 mg Perphenazine (Perphenazine 2 Mg Tablet) 2 mg PO BEDTIME PRN PRN Reason: Insomnia Quetiapine Fumarate (Quetiapine Fumarate 25 Mg Tablet) 75 mg PO BEDTIME [facility] Last Admin: 08/12/25 21:56 Dose: 75 mg Quetiapine Fumarate (Quetiapine Fumarate 25 Mg Tablet) 12.5 mg PO BID PRN PRN Reason: agitation/severe anxiety Last Admin: 08/11/25 01:26 Dose: 12.5 mg Trazodone HCl (Trazodone Hcl 25 Mg Halftab) 25 mg PO BEDTIME PRN PRN Reason: Insomnia Allergies Allergies Allergy/AdvReac Type Severity Reaction Status Date / Time No Known Allergies Allergy Verified 08/09/25 21:18 Assessment & Plan Assessment & Plan (1) Bipolar affective, manic, unspec: Status: Acute Code(s): F31.10 - Bipolar disorder, current episode manic without psychotic features, unspecified (2) PTSD (post-traumatic stress disorder): Status: Acute Code(s): F43.10 - Post-traumatic stress disorder, unspecified (3) Arthritis: Status: Acute Code(s): M19.90 - Unspecified osteoarthritis, unspecified site Plan HPI: Patient is a 59 y.o divorce [place] speaking female with past medical and psychiatric history of bipolar, PTSD, arithritist, osteoporosis referred to [facility] from [facility] from ED. Patient presented to ED from home on 08/08/2025. She call 911 for wellness checks after and her best friend as her to get herself evaluated with concerns for her safety and mental status. Patient has been acting erratic, not sleeping, moving stuff around in her home 23/06, driving recklessly at high speed, texting threats to her partner, calling her partner's customers, and employees with threats. Formulation/clinical reasoning: ? If medication compliant, increase in manic behavior, paranoid/delusional. History of PTSD, bipolar. Was recently discharged at the beginning of the month from psychiatric hospital when she was not stable. Patient presented with manic behaviors that put herself at risk for safety. We will continue to monitor, medication adjustment, and provide therapeutic environment and groups for coping skills. We will refer patient back to outpatient psychiatric services and therapist for aftercare Hospital course: 08/10/25: Continue Lamictal 75 mg daily for mood. Trileptal 300 twice a day for mood. Seroquel 75 mg at bedtime for insomnia/mood 12.5 mg b.i.d. p.r.n. for agitation or severe anxiety. Perphenazine 2 mg p.r.n. at bedtime. Naproxen 500 b.i.d. p.r.n. arthritis. Trazodone as needed for insomnia. 08/11/25: Patient slept for 6 hours with restless sleep. Per nursing, patient appeared to be confused after taking trazodone. Patient give me the scenarios what was happening at night and she able to recall what she did during the night. She said is not confused, but she should take low dose of trazodone instead. Per record, she was given trazodone with the hydroxyzine and naproxen at around 01:26 in the morning. She remembers she was eating the cookie and milk and waking up crumbs and paper on her body. Advised patient not to combine them. Trazodone is now discontinued. We will revisit if patient needs it. Patient is tangential, very hyperverbal, sometimes not able to stay in the topic. Continue to perseveration on current boyfriend. She also would like to send her phone to the police where they can check the evidence of videos and screen shots as evidence for suspecting the boyfriend or some stranger being around in the house. She also asked what she should do, or should she file restraining order against her boyfriend. Some what her best friend told her that she may have psychosis break. Patient was advised to not making any big decision that could make her feel regret later on when she gets better as for now she is not stable enough. Patient also confused with the 3 day notice, to different staff to confirmed that she signed a 3 days on the day she came in which she did it with me yesterday. If she continues to improve, we will most likely to discharge on Friday. However, it is too early to decide if she is could be stable by that time. She is pleasant, anxious, but cooperative. Continue sharing a long story about her life. She verbally love this provider to call her son Paul at [phone] who called to the social studies teacher left voice message saying that he is a healthcare proxy, and power of immigration attorney of his mom. Called Paul the above number, left voice message, with a number to call back. Waiting for response. Armen called back, was in the middle of conversation but was not having good signal. Therefore, will touch base with him another time. Per Armen, his mom basiclly comes to hospital and have episode once yearl. Regarding meds, Armen said it is in a black hole as no one is sure if his mom is compliant with meds or not. He also reports that the paranoid regarding his mom's boyfriend is not reality based. Update Paul with current manic behaviors and possible paranoid thoughts regarding her boyfriend but not about other stuff/other people. Discontinue Trazodone. Will revisit. Increase Lacmital up to 100mg daily in the morning. 08/12/25: Patient only slept 3-1/2 hours, medication compliant. However, per nursing and and other disciplines report, patient appeared to be more manic today. Not able to stay in a topic. Disorganized, but pleasant and cooperative. She appears to be very busy on the phone all day long today in between groups. Patient agrees if she is not getting better by Friday she can stay a little bit longer than Friday. Discussed with patient regarding medication plan. Patient does not agree with the Seroquel increased up to 100 tonight but agrees with adding melatonin and trazodone as needed-25 mg only p.r.n.. She agreed that by tomorrow if she is still not able to sleep, Seroquel up to 100 mg. Reports constipated, and agreed to take Colace twice a day. Appears to have increased appetite, appeared to be tired today, but not resting, racing thoughts, tried to organize the stuff at home from here via phone. Patient continued to believe that the medial she has is evidence of the boyfriend someone did something make her be in danger. Melatonin 6 mg scheduled at bed. Trazodone 25 mg p.r.n. for insomnia. Colace 100 b.i.d. for constipation Plan Patient on 15 minute checks for safety. Admitted to . [facility]. Signed 3 day notice up on 08/15/25- Friday. Work with treatment team to do collateral and FLU appointments for aftercare. Spoke with Paul- Son at [phone]. Will touch base with him again next day as d/t the bad/weak phone signal, not able to complete the update. Contact the hospitalist regarding hospitalist consultation on admission: seen by Hospitalist on 08/10/25. Patient educated on: diagnosis, medication risk/benefits and therapeutic strategies Informed Consent: understands and further education needed Reason for continued inpatient stay Substantial Risk for: med/psych decompensation Time Spent With Patient Time: Total time managing care of this patient today ____ minutes.
[2025-08-13 08:00] VITALS: BP 136/83; PULSE 65; RESP 18; TEMP 36.4; O2SAT 98
--- NOTE | 2025-08-13 09:12 | P.PNPSI_ITS ---
Subjective Subjective Date of Service: 08/13/25 Reason For Visit: Manic behavior - Decomp Subjective Notes: 3 Day Healthcare Proxy: No Guardianship: No Medical Problems Affecting Mental Status: No Interim History: Medical record and nursing notes reviewed; case discussed during rounds with team/nursing staff, and met with patient for supportive therapy/psychoeducation, as well as medication management. Sleep improved- slept for 6 hours last night. Compliant with meds, denies side effects. She loves Melatonin that started last night. Patient agrees to have Trileptal increased up to total of 900mg/daily in divided dose. Review possible side effects of hyponatremia. Check CMP to get another baseline. Hyperverbal pleasant, mild anxiety, more organized that yesterday but appears to restless, not resting, keep herself very busy all day to the point that she states she does not have time to shower today yet. Discuss with patient regarding manic behaviors. Patient does not think she is manic and says it is her baseline. Patient may retract 3 day for further treatment time and medication management. No SI/SIB/HI/AVH. Perseveration on unsafe behavior on boyfriend which could be from her paranoid. Other than that, patient has not made any paranoid/delusions Medication Compliance: Yes Side effects from medications: No Attending Groups: Yes Review of Systems Acute medical concerns: No Medical Review of Systems: unchanged Review of Systems Review of Systems Constitutional: Denies fatigue and Denies fever(s) Cardiovascular: Denies chest pain and Denies dyspnea Respiratory: Denies dyspnea Gastrointestinal: Denies abdominal pain but constipated. Psychiatric: denies suicidal ideation Endocrine: Denies fatigue Yes all other systems are reviewed and are negative Mental Status Exam Mental Status Exam Narrative: Patient is alert and oriented; behavior is cooperative, friendly with mild to moderate anxiety; patient is not in distress; dressed in casual attire with kempt hair and adequate hygiene; mood is anxious with racing thoughts and affect congruent; eye contact appropriate; Speech is normal rate, volume and prosody and not pressured; but very hyperverbal, no psychomotor agitation/retardation present; thought process is disorganized mostly with racing,hyper focus on arranging stuff at home via phone, tangential. Thought content is WNL, pertinent to relevant topics at times. Appear to be paranoid regarding the boyfriend; denies any SI/SIB/HI. Denies AH and there is no evidence of perceptual disturbance. Patient's insight and judgment improving. Diagnostics Vital Signs (24Hr): Vital Signs - 24 hr 08/12/25 19:55 08/13/25 08:00 Temperature 98.4 F 97.6 F Pulse Rate 71 65 Respiratory Rate 18 18 Blood Pressure 135/69 136/83 Pulse Oximetry 97 98 Oxygen Delivery Method Room Air Room Air BMI result Body Mass Index 25.4 Labs 08/11/25 07:56 Medications Medications Current Medications Acetaminophen (Acetaminophen 325 Mg Tablet) 650 mg PO Q6H PRN PRN Reason: Headache/Pain, Scale 1-10 Last Admin: 08/10/25 16:40 Dose: 650 mg Al Hydroxide/Mg Hydroxide (Magnesium Hydrox/Alum Hydrox 30 Ml Oral.Susp) 30 ml PO Q6H PRN PRN Reason: Heartburn/Nausea Capsaicin (Capsaicin 0.025% Cream 60 Gm Tube) 1 appl TOPICAL TID PRN; Protocol PRN Reason: Pain, Mild (Pain Scale 1-3) Last Admin: 08/12/25 09:27 Dose: 1 appl Docusate Sodium (Docusate Sodium 100 Mg Capsule) 100 mg PO BID [facility] Last Admin: 08/13/25 08:36 Dose: 100 mg Hydroxyzine HCl (Hydroxyzine Hcl 25 Mg Tablet) 25 mg PO Q6H PRN PRN Reason: mild anxiety Last Admin: 08/11/25 01:27 Dose: 25 mg Lamotrigine (Lamotrigine 100 Mg Tablet) 100 mg PO DAILY [facility] Last Admin: 08/13/25 08:36 Dose: 100 mg Magnesium Hydroxide (Milk Of Magnesia 30 Ml Oral.Susp) 30 ml PO DAILY PRN PRN Reason: Constipation Magnesium Oxide (Magnesium Oxide 400 Mg Tablet) 400 mg PO BEDTIME [facility] Last Admin: 08/12/25 21:52 Dose: 400 mg Melatonin (Melatonin 3 Mg Tablet) 6 mg PO BEDTIME [facility] Last Admin: 08/12/25 21:54 Dose: 6 mg Naproxen (Naproxen 500 Mg Tablet) 500 mg PO Q12H PRN PRN Reason: Pain, Moderate(Pain Scale 4-6) Last Admin: 08/13/25 05:15 Dose: 500 mg Nicotine (Nicotine 21 Mg Patch.Td24) 21 mg TRANSDERMA DAILY PRN PRN Reason: nicotine craving Nicotine Polacrilex (Nicotine Polacrilex 2 Mg Gum) 2 mg BUCCAL Q2H PRN PRN Reason: Nicotine Cravings Oxcarbazepine (Oxcarbazepine 300 Mg Tablet) 300 mg PO BID [facility] Last Admin: 08/13/25 08:36 Dose: 300 mg Perphenazine (Perphenazine 2 Mg Tablet) 2 mg PO BEDTIME PRN PRN Reason: Insomnia Quetiapine Fumarate (Quetiapine Fumarate 25 Mg Tablet) 75 mg PO BEDTIME [facility] Last Admin: 08/12/25 21:56 Dose: 75 mg Quetiapine Fumarate (Quetiapine Fumarate 25 Mg Tablet) 12.5 mg PO BID PRN PRN Reason: agitation/severe anxiety Last Admin: 08/11/25 01:26 Dose: 12.5 mg Trazodone HCl (Trazodone Hcl 25 Mg Halftab) 25 mg PO BEDTIME PRN PRN Reason: Insomnia Allergies Allergies Allergy/AdvReac Type Severity Reaction Status Date / Time No Known Allergies Allergy Verified 08/09/25 21:18 Assessment & Plan Assessment & Plan (1) Bipolar affective, manic, unspec: Status: Acute Code(s): F31.10 - Bipolar disorder, current episode manic without psychotic features, unspecified (2) PTSD (post-traumatic stress disorder): Status: Acute Code(s): F43.10 - Post-traumatic stress disorder, unspecified (3) Arthritis: Status: Acute Code(s): M19.90 - Unspecified osteoarthritis, unspecified site Plan HPI: Patient is a 59 y.o divorce Georgian speaking female with past medical and psychiatric history of bipolar, PTSD, arithritist, osteoporosis referred [place] [facility] from ED. Patient presented to ED from home on 08/08/2025. She call 911 for wellness checks after and her best friend as her to get herself evaluated with concerns for her safety and mental status. Patient has been acting erratic, not sleeping, moving stuff around in her home 23/06, driving recklessly at high speed, texting threats to her partner, calling her partner's customers, and employees with threats. Formulation/clinical reasoning: ? If medication compliant, increase in manic behavior, paranoid/delusional. History of PTSD, bipolar. Was recently discharged at the beginning of the month from psychiatric hospital when she was not stable. Patient presented with manic behaviors that put herself at risk for safety. We will continue to monitor, medication adjustment, and provide therapeutic environment and groups for coping skills. We will refer patient back to outpatient psychiatric services and therapist for aftercare Hospital course: 08/10/25: Continue Lamictal 75 mg daily for mood. Trileptal 300 twice a day for mood. Seroquel 75 mg at bedtime for insomnia/mood 12.5 mg b.i.d. p.r.n. for agitation or severe anxiety. Perphenazine 2 mg p.r.n. at bedtime. Naproxen 500 b.i.d. p.r.n. arthritis. Trazodone as needed for insomnia. 08/11/25: Patient slept for 6 hours with restless sleep. Per nursing, patient appeared to be confused after taking trazodone. Patient give me the scenarios what was happening at night and she able to recall what she did during the night. She said is not confused, but she should take low dose of trazodone instead. Per record, she was given trazodone with the hydroxyzine and naproxen at around 01:26 in the morning. She remembers she was eating the cookie and milk and waking up crumbs and paper on her body. Advised patient not to combine them. Trazodone is now discontinued. We will revisit if patient needs it. Patient is tangential, very hyperverbal, sometimes not able to stay in the topic. Continue to perseveration on current boyfriend. She also would like to send her phone to the police where they can check the evidence of videos and screen shots as evidence for suspecting the boyfriend or some stranger being around in the house. She also asked what she should do, or should she file restraining order against her boyfriend. Some what her best friend told her that she may have psychosis break. Patient was advised to not making any big decision that could make her feel regret later on when she gets better as for now she is not stable enough. Patient also confused with the 3 day notice, to different staff to confirmed that she signed a 3 days on the day she came in which she did it with me yesterday. If she continues to improve, we will most likely to discharge on Friday. However, it is too early to decide if she is could be stable by that time. She is pleasant, anxious, but cooperative. Continue sharing a long story about her life. She verbally love this provider to call her son Paul at [phone] who called to the social science research assistant left voice message saying that he is a healthcare proxy, and power of environmental attorney of his mom. Called Paul the above number, left voice message, with a number to call back. Waiting for response. Armen called back, was in the middle of conversation but was not having good signal. Therefore, will touch base with him another time. Per Armen, his mom basiclly comes to hospital and have episode once yearl. Regarding meds, Armen said it is in a black hole as no one is sure if his mom is compliant with meds or not. He also reports that the paranoid regarding his mom's boyfriend is not reality based. Update Paul with current manic behaviors and possible paranoid thoughts regarding her boyfriend but not about other stuff/other people. Discontinue Trazodone. Will revisit. Increase Lacmital up to 100mg daily in the morning. 08/12/25: Patient only slept 3-1/2 hours, medication compliant. However, per nursing and and other disciplines report, patient appeared to be more manic today. Not able to stay in a topic. Disorganized, but pleasant and cooperative. She appears to be very busy on the phone all day long today in between groups. Patient agrees if she is not getting better by Friday she can stay a little bit longer than Friday. Discussed with patient regarding medication plan. Patient does not agree with the Seroquel increased up to 100 tonight but agrees with adding melatonin and trazodone as needed-25 mg only p.r.n.. She agreed that by tomorrow if she is still not able to sleep, Seroquel up to 100 mg. Reports constipated, and agreed to take Colace twice a day. Appears to have increased appetite, appeared to be tired today, but not resting, racing thoughts, tried to organize the stuff at home from here via phone. Patient continued to believe that the medial she has is evidence of the boyfriend someone did something make her be in danger. Melatonin 6 mg scheduled at bed. Trazodone 25 mg p.r.n. for insomnia. Colace 100 b.i.d. for constipation 08/13/25: Sleep improved- slept for 6 hours last night. Compliant with meds, denies side effects. She loves Melatonin that started last night. Patient agrees to have Trileptal increased up to total of 900mg/daily in divided dose. Review possible side effects of hyponatremia. Check CMP to get another baseline. Hyperverbal pleasant, mild anxiety, more organized that yesterday but appears to restless, not resting, keep herself very busy all day to the point that she states she does not have time to shower today yet. Discuss with patient regarding manic behaviors. Patient does not think she is manic and says it is her baseline. Patient may retract 3 day for further treatment time and medication management. No SI/SIB/HI/AVH. Perseveration on unsafe behavior on boyfriend which could be from her paranoid. Other than that, patient has not made any paranoid/delusions Trileptal 300mg daily in the morning and increase HS dose to 600mg for mood. CMP for 08/14/25. Plan Patient on 15 minute checks for safety. Admitted to [facility]. Signed 3 day notice up on 08/15/25- Friday. Work with treatment team to do collateral and FLU appointments for aftercare. Spoke with Paul- Son at [phone]. Will touch base with him again next day as d/t the bad/weak phone signal, not able to complete the update. Contact the hospitalist regarding hospitalist consultation on admission: seen by Hospitalist on 08/10/25. Patient educated on: diagnosis, medication risk/benefits and therapeutic strategies Informed Consent: understands and further education needed Reason for continued inpatient stay Substantial Risk for: med/psych decompensation Time Spent With Patient Time: Total time managing care of this patient today ____ minutes.
[2025-08-13 17:25] VITALS: BP 181/73; PULSE 72
[2025-08-13 18:20] VITALS: BP 126/76; PULSE 67
[2025-08-13 19:40] VITALS: BP 120/69; PULSE 67; RESP 18; TEMP 36.6; O2SAT 98
[2025-08-14 08:00] VITALS: BP 137/68; PULSE 60; RESP 16; TEMP 36.5; O2SAT 98
[2025-08-14 09:04] LABS: Alanine Aminotransferase 80 U/L (0-31); Albumin Level 4.1 g/dL (3.5-5.0); Alkaline Phosphatase 83 U/L (39-117); Anion Gap 12 (12-20); Aspartate Amino Transferase 60 U/L (5-31); Blood Urea Nitrogen 26 mg/dL (9-16); Calcium 8.9 mg/dL (8.4-10.2); Carbon Dioxide 27 mmol/L (22-29); Chloride 104 mmol/L (96-108); Creatinine Clr Calc Pharmacy 85.3; Estimated Glomerular Filt Rate > 60; Potassium 4.6 mmol/L (3.3-5.1); Sodium 138 mmol/L (135-145); Total Protein 6.3 g/dL (6.5-8.0)
[2025-08-14 20:00] VITALS: BP 140/82; PULSE 84; RESP 16; TEMP 36.4; O2SAT 97
--- NOTE | 2025-08-14 22:45 | P.PNPSI_ITS ---
Subjective Subjective Date of Service: 08/14/25 Reason For Visit: Manic behavior - Decomp Subjective Notes: 3 Day Healthcare Proxy: No Guardianship: No Medical Problems Affecting Mental Status: No Interim History: Medical record and nursing notes reviewed; case discussed during rounds with team/nursing staff, and met with patient for supportive therapy/psychoeducation, as well as medication management. Patient slept for 7 hours, compliant with medications. No side effects noted, what her blood pressure elevated yesterday, worse even clonidine 0.2 with good effect. Nursing reported the patient called the police, police called to the nurse station to make sure we do not have her call again. Patient continued to have a verbal, tangential, appeared hoarding food. Anxious, keep busy all day long with activities, not rested. She does not want to retracted 3 day today, but will think about that in the morning. No safety concern expressed except for calling the police yesterday. She is visible and attended groups, pleasant to talk to. Medication Compliance: Yes Side effects from medications: No Attending Groups: Yes Review of Systems Acute medical concerns: No Medical Review of Systems: unchanged Review of Systems Review of Systems Constitutional: Denies fatigue and Denies fever(s) Cardiovascular: Denies chest pain and Denies dyspnea Respiratory: Denies dyspnea Gastrointestinal: Denies abdominal pain but constipated. Psychiatric: denies suicidal ideation Endocrine: Denies fatigue Yes all other systems are reviewed and are negative Mental Status Exam Mental Status Exam Narrative: Patient is alert and oriented; behavior is cooperative, friendly with mild to moderate anxiety; patient is not in distress; dressed in casual attire with kempt hair and adequate hygiene; mood is anxious with racing thoughts and affect congruent; eye contact appropriate; Speech is normal rate, volume and prosody and not pressured; but very hyperverbal, no psychomotor agitation/retardation present; thought process is disorganized mostly with racing,hyper focus on arranging stuff at home via phone, tangential. Thought content is WNL, pertinent to relevant topics at times. Appear to be paranoid regarding the boyfriend; denies any SI/SIB/HI. Denies AH and there is no evidence of perceptual disturbance. Patient's insight and judgment improving. Diagnostics Vital Signs (24Hr): Vital Signs - 24 hr 08/14/25 08:00 08/14/25 20:00 Temperature 97.7 F 97.6 F Pulse Rate 60 84 Respiratory Rate 16 16 Blood Pressure 137/68 140/82 H Pulse Oximetry 98 97 Oxygen Delivery Method Room Air Room Air BMI result Body Mass Index 25.4 Labs 08/14/25 07:22 Labs: Laboratory Results - last 48 hr 08/14/25 07:22 Sodium 138 Potassium 4.6 Chloride 104 Carbon Dioxide 27 Anion Gap 12 BUN 26 H Creatinine 0.69 Estim Creat Clear Calc 85.3 Estimated GFR > 60 Random Glucose 89 Calcium 8.9 Total Bilirubin 0.2 AST 60 H ALT 80 H Alkaline Phosphatase 83 Total Protein 6.3 L Albumin 4.1 Medications Medications Current Medications Acetaminophen (Acetaminophen 325 Mg Tablet) 650 mg PO Q6H PRN PRN Reason: Headache/Pain, Scale 1-10 Last Admin: 08/13/25 17:01 Dose: 650 mg Al Hydroxide/Mg Hydroxide (Magnesium Hydrox/Alum Hydrox 30 Ml Oral.Susp) 30 ml PO Q6H PRN PRN Reason: Heartburn/Nausea Capsaicin (Capsaicin 0.025% Cream 60 Gm Tube) 1 appl TOPICAL TID PRN; Protocol PRN Reason: Pain, Mild (Pain Scale 1-3) Last Admin: 08/14/25 12:32 Dose: 1 appl Clonidine HCl (Clonidine Hcl 0.2 Mg Tablet) 0.2 mg PO Q6H PRN; Protocol PRN Reason: SBP > 160 Last Admin: 08/13/25 17:33 Dose: 0.2 mg Docusate Sodium (Docusate Sodium 100 Mg Capsule) 100 mg PO BID [facility] Last Admin: 08/14/25 08:23 Dose: 100 mg Hydroxyzine HCl (Hydroxyzine Hcl 25 Mg Tablet) 25 mg PO Q6H PRN PRN Reason: mild anxiety Last Admin: 08/11/25 01:27 Dose: 25 mg Lamotrigine (Lamotrigine 100 Mg Tablet) 100 mg PO DAILY [facility] Last Admin: 08/14/25 08:23 Dose: 100 mg Magnesium Hydroxide (Milk Of Magnesia 30 Ml Oral.Susp) 30 ml PO DAILY PRN PRN Reason: Constipation Magnesium Oxide (Magnesium Oxide 400 Mg Tablet) 400 mg PO BEDTIME [facility] Last Admin: 08/13/25 22:32 Dose: 400 mg Melatonin (Melatonin 3 Mg Tablet) 6 mg PO BEDTIME [facility] Last Admin: 08/13/25 22:31 Dose: 6 mg Naproxen (Naproxen 500 Mg Tablet) 500 mg PO Q12H PRN PRN Reason: Pain, Moderate(Pain Scale 4-6) Last Admin: 08/14/25 12:34 Dose: 500 mg Nicotine (Nicotine 21 Mg Patch.Td24) 21 mg TRANSDERMA DAILY PRN PRN Reason: nicotine craving Nicotine Polacrilex (Nicotine Polacrilex 2 Mg Gum) 2 mg BUCCAL Q2H PRN PRN Reason: Nicotine Cravings Oxcarbazepine (Oxcarbazepine 300 Mg Tablet) 300 mg PO DAILY [facility] Last Admin: 08/14/25 08:23 Dose: 300 mg Oxcarbazepine (Oxcarbazepine 300 Mg Tablet) 600 mg PO BEDTIME [facility] Last Admin: 08/13/25 22:32 Dose: 600 mg Perphenazine (Perphenazine 2 Mg Tablet) 2 mg PO BEDTIME PRN PRN Reason: Insomnia Quetiapine Fumarate (Quetiapine Fumarate 25 Mg Tablet) 75 mg PO BEDTIME [facility] Last Admin: 08/13/25 22:33 Dose: 75 mg Quetiapine Fumarate (Quetiapine Fumarate 25 Mg Tablet) 12.5 mg PO BID PRN PRN Reason: agitation/severe anxiety Last Admin: 08/14/25 17:07 Dose: 12.5 mg Trazodone HCl (Trazodone Hcl 25 Mg Halftab) 25 mg PO BEDTIME PRN PRN Reason: Insomnia Allergies Allergies Allergy/AdvReac Type Severity Reaction Status Date / Time No Known Allergies Allergy Verified 08/09/25 21:18 Assessment & Plan Assessment & Plan (1) Bipolar affective, manic, unspec: Status: Acute Code(s): F31.10 - Bipolar disorder, current episode manic without psychotic features, unspecified (2) PTSD (post-traumatic stress disorder): Status: Acute Code(s): F43.10 - Post-traumatic stress disorder, unspecified (3) Arthritis: Status: Acute Code(s): M19.90 - Unspecified osteoarthritis, unspecified site Plan HPI: Patient is a 59 y.o divorce Hebrew speaking female with past medical and psychiatric history of bipolar, PTSD, arithritist, osteoporosis referred to [facility] from [facility] from ED. Patient presented to ED from home on 08/08/2025. She call 911 for wellness checks after and her best friend as her to get herself evaluated with concerns for her safety and mental status. Patient has been acting erratic, not sleeping, moving stuff around in her home 23/06, driving recklessly at high speed, texting threats to her partner, calling her partner's customers, and employees with threats. Formulation/clinical reasoning: ? If medication compliant, increase in manic behavior, paranoid/delusional. History of PTSD, bipolar. Was recently discharged at the beginning of the month from psychiatric hospital when she was not stable. Patient presented with manic behaviors that put herself at risk for safety. We will continue to monitor, medication adjustment, and provide therapeutic environment and groups for coping skills. We will refer patient back to outpatient psychiatric services and therapist for aftercare Hospital course: 08/10/25: Continue Lamictal 75 mg daily for mood. Trileptal 300 twice a day for mood. Seroquel 75 mg at bedtime for insomnia/mood 12.5 mg b.i.d. p.r.n. for agitation or severe anxiety. Perphenazine 2 mg p.r.n. at bedtime. Naproxen 500 b.i.d. p.r.n. arthritis. Trazodone as needed for insomnia. 08/11/25: Patient slept for 6 hours with restless sleep. Per nursing, patient appeared to be confused after taking trazodone. Patient give me the scenarios what was happening at night and she able to recall what she did during the night. She said is not confused, but she should take low dose of trazodone instead. Per record, she was given trazodone with the hydroxyzine and naproxen at around 01:26 in the morning. She remembers she was eating the cookie and milk and waking up crumbs and paper on her body. Advised patient not to combine them. Trazodone is now discontinued. We will revisit if patient needs it. Patient is tangential, very hyperverbal, sometimes not able to stay in the topic. Continue to perseveration on current boyfriend. She also would like to send her phone to the police where they can check the evidence of videos and screen shots as evidence for suspecting the boyfriend or some stranger being around in the house. She also asked what she should do, or should she file restraining order against her boyfriend. Some what her best friend told her that she may have psychosis break. Patient was advised to not making any big decision that could make her feel regret later on when she gets better as for now she is not stable enough. Patient also confused with the 3 day notice, to different staff to confirmed that she signed a 3 days on the day she came in which she did it with me yesterday. If she continues to improve, we will most likely to discharge on Friday. However, it is too early to decide if she is could be stable by that time. She is pleasant, anxious, but cooperative. Continue sharing a long story about her life. She verbally love this provider to call her son Paul at [phone] who called to the high school social studies tutor left voice message saying that he is a healthcare proxy, and power of consumer attorney of his mom. Called Paul the above number, left voice message, with a number to call back. Waiting for response. Armen called back, was in the middle of conversation but was not having good signal. Therefore, will touch base with him another time. Per Armen, his mom basiclly comes to hospital and have episode once yearl. Regarding meds, Armen said it is in a black hole as no one is sure if his mom is compliant with meds or not. He also reports that the paranoid regarding his mom's boyfriend is not reality based. Update Paul with current manic behaviors and possible paranoid thoughts regarding her boyfriend but not about other stuff/other people. Discontinue Trazodone. Will revisit. Increase Lacmital up to 100mg daily in the morning. 08/12/25: Patient only slept 3-1/2 hours, medication compliant. However, per nursing and and other disciplines report, patient appeared to be more manic today. Not able to stay in a topic. Disorganized, but pleasant and cooperative. She appears to be very busy on the phone all day long today in between groups. Patient agrees if she is not getting better by Friday she can stay a little bit longer than Friday. Discussed with patient regarding medication plan. Patient does not agree with the Seroquel increased up to 100 tonight but agrees with adding melatonin and trazodone as needed-25 mg only p.r.n.. She agreed that by tomorrow if she is still not able to sleep, Seroquel up to 100 mg. Reports constipated, and agreed to take Colace twice a day. Appears to have increased appetite, appeared to be tired today, but not resting, racing thoughts, tried to organize the stuff at home from here via phone. Patient continued to believe that the medial she has is evidence of the boyfriend someone did something make her be in danger. Melatonin 6 mg scheduled at bed. Trazodone 25 mg p.r.n. for insomnia. Colace 100 b.i.d. for constipation 08/13/25: Sleep improved- slept for 6 hours last night. Compliant with meds, denies side effects. She loves Melatonin that started last night. Patient agrees to have Trileptal increased up to total of 900mg/daily in divided dose. Review possible side effects of hyponatremia. Check CMP to get another baseline. Hyperverbal pleasant, mild anxiety, more organized that yesterday but appears to restless, not resting, keep herself very busy all day to the point that she states she does not have time to shower today yet. Discuss with patient regarding manic behaviors. Patient does not think she is manic and says it is her baseline. Patient may retract 3 day for further treatment time and medication management. No SI/SIB/HI/AVH. Perseveration on unsafe behavior on boyfriend which could be from her paranoid. Other than that, patient has not made any paranoid/delusions Trileptal 300mg daily in the morning and increase HS dose to 600mg for mood. CMP for 08/14/25. 08/14/25: Patient slept for 7 hours, compliant with medications. No side effects noted, what her blood pressure elevated yesterday, worse even clonidine 0.2 with good effect. Nursing reported the patient called the police, police called to the nurse station to make sure we do not have her call again. Patient continued to have a verbal, tangential, appeared hoarding food. Anxious, keep busy all day long with activities, not rested. She does not want to retracted 3 day today, but will think about that in the morning. No safety concern expressed except for calling the police yesterday. She is visible and attended groups, pleasant to talk to. Sodium is within limit. slightly elevated on liver function. Low on protein Plan Patient on 15 minute checks for safety. Admitted to [facility]. Signed 3 day notice up on 08/15/25- Friday. Work with treatment team to do collateral and FLU appointments for aftercare. Spoke with Paul- Son at [phone]. Will touch base with him again next day as d/t the bad/weak phone signal, not able to complete the update. Contact the hospitalist regarding hospitalist consultation on admission: seen by Hospitalist on 08/10/25. Patient educated on: diagnosis, medication risk/benefits and therapeutic strategies Informed Consent: understands and further education needed Reason for continued inpatient stay Substantial Risk for: med/psych decompensation Time Spent With Patient Time: Total time managing care of this patient today ____ minutes.
[2025-08-15 00:45] VITALS: PULSE 68; RESP 18; O2SAT 96
[2025-08-15 00:48] VITALS: BP 171/99
--- NOTE | 2025-08-15 05:35 | PC.NURSE ---
Patient has been hypo-manic on the overnight. Patient has not slept. Patient making airline reservations for her son to fly from [place], [place] to [place]. This nurse spoke with son and he stated that he was not getting on a plan and is not going to come to [place] at this time. This nurse tried to explain this to the patient but she did not listen. Patient continues to attempt to make reservations. Patient asked this nurse to access her phone so she could get her credit card information form her [employer]. This nurse informed patient that he would not be able to allow her to access her phone for that information. Patient also wanted to access her phone so that she could get her son's address in [place], [place] so she could send a Limo. This nurse explained to Laura that he could not allow her to access her phone and suggested to her that she call her son directly and ask him for his current address.
[2025-08-15 07:20] VITALS: BP 132/61; PULSE 62; RESP 20; TEMP 36.2; O2SAT 100
[2025-08-15 13:33] VITALS: BP 171/92; PULSE 86
[2025-08-15 20:00] VITALS: BP 137/76; PULSE 75; RESP 18; TEMP 36.5; O2SAT 99
--- NOTE | 2025-08-15 21:42 | HO.PSYCHPN ---
Subjective Subjective Date of Service: 08/15/25 Reason For Visit: Manic behavior - Decomp Subjective Notes: 3 Day Healthcare Proxy: Yes Guardianship: No Medical Problems Affecting Mental Status: No Interim History: Medical record and nursing notes reviewed; case discussed during rounds with team/nursing staff, and met with patient for supportive therapy/psychoeducation, as well as medication management. Patient did not slept last night, only slept fully 45 minutes. She keeps herself busy all day long with lots of ideas, on the phone a lot, not resting, she hoarding food in her room. Hyper verbal, tangential which got worse. She make unreasonable decision, continued to paranoid regarding the boyfriend and ex-. She became more argumentative, not usually normal pleasant her during one-to-one assessment. Poor insight and poor judgment, continue to perceive that she is not manic, and stated that this is her normal. Per nursing, and socially responsible investment adviser, patient got was the past 2 days. She is not sleeping but do not appeared to be tired. Discussed with patient regarding medication plan which patient does not agree with. She does not want any medication changes, in fact reports that Lamictal increased make her med more manic. She was inform the medication changes: Lamictal up to 150 mg, Trileptal up to total of 1200 mg in divided dose, Seroquel increased up to 100 mg at bedtime. Ativan 0.5 t.i.d., plus 1 mg t.i.d. p.r.n. for severe anxiety. Patient states that she will not take medication with those increase. Patient advised to take medication as recommended. She agreed to retracted 3 day, requests to see if she can be evaluated tonight to release/discharge. Informed that she will not be discharged today, she asked if she can retract insight another 3 day. This provider informed the patient that if she plans to sign another 3 day we may not let her retract but file on her instead. In the moment, she agrees that she will stay here to complete the treatment as long as needed. However, she signed the 3 day again in the afternoon, after this provider inform her about medication changes. Medication Compliance: Yes (but refused dose increased this morning. ) Side effects from medications: No Attending Groups: Yes Review of Systems Acute medical concerns: No Medical Review of Systems: unchanged Review of Systems Review of Systems Constitutional: Denies fatigue and Denies fever(s) Cardiovascular: Denies chest pain and Denies dyspnea Respiratory: Denies dyspnea Gastrointestinal: Denies abdominal pain but constipated. Psychiatric: denies suicidal ideation Endocrine: Denies fatigue Yes all other systems are reviewed and are negative Mental Status Exam Mental Status Exam Narrative: Patient is alert and oriented; behavior is cooperative but not friendly moderate to severe anxiety; patient is not in distress; dressed in casual attire with kempt hair and adequate hygiene; mood is anxious, argumentative with racing thoughts and affect congruent; eye contact appropriate; Speech is normal rate, volume and prosody and not pressured; but very hyperverbal, tangential which got worse, mild to moderate psychomotor agitation/retardation present; thought process is disorganized mostly with racing,hyper focus on arranging stuff at home via phone, . Thought content is not on treatment, not pertinent to relevant topics at times. Appear to be paranoid regarding the boyfriend and ex-, not express SI/SIB/HI.. Patient's insight and judgment impaired and got worse. Decompensated. Diagnostics Vital Signs (24Hr): Vital Signs - 24 hr 08/15/25 00:45 08/15/25 00:48 08/15/25 07:20 Temperature 97.1 F Pulse Rate 68 62 Respiratory Rate 18 20 Blood Pressure 171/99 H 132/61 Pulse Oximetry 96 100 Oxygen Delivery Method Room Air Room Air 08/15/25 13:33 08/15/25 20:00 Temperature 97.7 F Pulse Rate 86 75 Respiratory Rate 18 Blood Pressure 171/92 H 137/76 Pulse Oximetry 99 Oxygen Delivery Method Room Air BMI result Body Mass Index 25.4 Labs 08/14/25 07:22 Labs: Laboratory Results - last 48 hr 08/14/25 07:22 Sodium 138 Potassium 4.6 Chloride 104 Carbon Dioxide 27 Anion Gap 12 BUN 26 H Creatinine 0.69 Estim Creat Clear Calc 85.3 Estimated GFR > 60 Random Glucose 89 Calcium 8.9 Total Bilirubin 0.2 AST 60 H ALT 80 H Alkaline Phosphatase 83 Total Protein 6.3 L Albumin 4.1 Medications Medications Current Medications Acetaminophen (Acetaminophen 325 Mg Tablet) 650 mg PO Q6H PRN PRN Reason: Headache/Pain, Scale 1-10 Last Admin: 08/13/25 17:01 Dose: 650 mg Al Hydroxide/Mg Hydroxide (Magnesium Hydrox/Alum Hydrox 30 Ml Oral.Susp) 30 ml PO Q6H PRN PRN Reason: Heartburn/Nausea Capsaicin (Capsaicin 0.025% Cream 60 Gm Tube) 1 appl TOPICAL TID PRN; Protocol PRN Reason: Pain, Mild (Pain Scale 1-3) Last Admin: 08/15/25 00:51 Dose: 1 appl Clonidine HCl (Clonidine Hcl 0.2 Mg Tablet) 0.2 mg PO Q6H PRN; Protocol PRN Reason: SBP > 160 Last Admin: 08/15/25 13:41 Dose: 0.2 mg Docusate Sodium (Docusate Sodium 100 Mg Capsule) 100 mg PO BID [facility] Last Admin: 08/15/25 08:18 Dose: Not Given Hydroxyzine HCl (Hydroxyzine Hcl 25 Mg Tablet) 25 mg PO Q6H PRN PRN Reason: mild anxiety Last Admin: 08/11/25 01:27 Dose: 25 mg Lamotrigine (Lamotrigine 25 Mg Tablet) 150 mg PO DAILY [facility] Lorazepam (Lorazepam 0.5 Mg Tablet) 0.5 mg PO TID [facility] Lorazepam (Lorazepam 1 Mg Tablet) 1 mg PO Q6H PRN PRN Reason: severe anxiety Magnesium Hydroxide (Milk Of Magnesia 30 Ml Oral.Susp) 30 ml PO DAILY PRN PRN Reason: Constipation Magnesium Oxide (Magnesium Oxide 400 Mg Tablet) 400 mg PO BEDTIME [facility] Last Admin: 08/15/25 00:49 Dose: 400 mg Melatonin (Melatonin 3 Mg Tablet) 6 mg PO BEDTIME [facility] Last Admin: 08/15/25 00:49 Dose: 6 mg Naproxen (Naproxen 500 Mg Tablet) 500 mg PO Q12H PRN PRN Reason: Pain, Moderate(Pain Scale 4-6) Last Admin: 08/14/25 12:34 Dose: 500 mg Nicotine (Nicotine 21 Mg Patch.Td24) 21 mg TRANSDERMA DAILY PRN PRN Reason: nicotine craving Nicotine Polacrilex (Nicotine Polacrilex 2 Mg Gum) 2 mg BUCCAL Q2H PRN PRN Reason: Nicotine Cravings Oxcarbazepine (Oxcarbazepine 300 Mg Tablet) 600 mg PO BEDTIME [facility] Last Admin: 08/15/25 00:49 Dose: 600 mg Oxcarbazepine (Oxcarbazepine 300 Mg Tablet) 300 mg PO DAILY@0900,1500 [facility] Last Admin: 08/15/25 16:19 Dose: Not Given Perphenazine (Perphenazine 2 Mg Tablet) 2 mg PO BEDTIME PRN PRN Reason: Insomnia Quetiapine Fumarate (Quetiapine Fumarate 25 Mg Tablet) 12.5 mg PO BID PRN PRN Reason: agitation/severe anxiety Last Admin: 08/14/25 17:07 Dose: 12.5 mg Quetiapine Fumarate (Quetiapine Fumarate 50 Mg Tablet) 150 mg PO BEDTIME [facility] Trazodone HCl (Trazodone Hcl 25 Mg Halftab) 25 mg PO BEDTIME PRN PRN Reason: Insomnia Allergies Allergies Allergy/AdvReac Type Severity Reaction Status Date / Time No Known Allergies Allergy Verified 08/09/25 21:18 Assessment & Plan Assessment & Plan (1) Bipolar affective, manic, unspec: Status: Acute Code(s): F31.10 - Bipolar disorder, current episode manic without psychotic features, unspecified (2) PTSD (post-traumatic stress disorder): Status: Acute Code(s): F43.10 - Post-traumatic stress disorder, unspecified (3) Arthritis: Status: Acute Code(s): M19.90 - Unspecified osteoarthritis, unspecified site Plan HPI: Patient is a 59 y.o divorce Estonian speaking female with past medical and psychiatric history of bipolar, PTSD, arithritist, osteoporosis referred to [facility] from [facility] from ED. Patient presented to ED from home on 08/08/2025. She call 911 for wellness checks after and her best friend as her to get herself evaluated with concerns for her safety and mental status. Patient has been acting erratic, not sleeping, moving stuff around in her home 23/06, driving recklessly at high speed, texting threats to her partner, calling her partner's customers, and employees with threats. Formulation/clinical reasoning: ? If medication compliant, increase in manic behavior, paranoid/delusional. History of PTSD, bipolar. Was recently discharged at the beginning of the month from psychiatric hospital when she was not stable. Patient presented with manic behaviors that put herself at risk for safety. We will continue to monitor, medication adjustment, and provide therapeutic environment and groups for coping skills. We will refer patient back to outpatient psychiatric services and therapist for aftercare Hospital course: 08/10/25: Continue Lamictal 75 mg daily for mood. Trileptal 300 twice a day for mood. Seroquel 75 mg at bedtime for insomnia/mood 12.5 mg b.i.d. p.r.n. for agitation or severe anxiety. Perphenazine 2 mg p.r.n. at bedtime. Naproxen 500 b.i.d. p.r.n. arthritis. Trazodone as needed for insomnia. 08/11/25: Patient slept for 6 hours with restless sleep. Per nursing, patient appeared to be confused after taking trazodone. Patient give me the scenarios what was happening at night and she able to recall what she did during the night. She said is not confused, but she should take low dose of trazodone instead. Per record, she was given trazodone with the hydroxyzine and naproxen at around 01:26 in the morning. She remembers she was eating the cookie and milk and waking up crumbs and paper on her body. Advised patient not to combine them. Trazodone is now discontinued. We will revisit if patient needs it. Patient is tangential, very hyperverbal, sometimes not able to stay in the topic. Continue to perseveration on current boyfriend. She also would like to send her phone to the police where they can check the evidence of videos and screen shots as evidence for suspecting the boyfriend or some stranger being around in the house. She also asked what she should do, or should she file restraining order against her boyfriend. Some what her best friend told her that she may have psychosis break. Patient was advised to not making any big decision that could make her feel regret later on when she gets better as for now she is not stable enough. Patient also confused with the 3 day notice, to different staff to confirmed that she signed a 3 days on the day she came in which she did it with me yesterday. If she continues to improve, we will most likely to discharge on Friday. However, it is too early to decide if she is could be stable by that time. She is pleasant, anxious, but cooperative. Continue sharing a long story about her life. She verbally love this provider to call her son Paul at [phone] who called to the socially responsible investment adviser left voice message saying that he is a healthcare proxy, and power of geophysical party chief of his mom. Called Paul the above number, left voice message, with a number to call back. Waiting for response. Armen called back, was in the middle of conversation but was not having good signal. Therefore, will touch base with him another time. Per Armen, his mom basiclly comes to hospital and have episode once yearl. Regarding meds, Armen said it is in a black hole as no one is sure if his mom is compliant with meds or not. He also reports that the paranoid regarding his mom's boyfriend is not reality based. Update Paul with current manic behaviors and possible paranoid thoughts regarding her boyfriend but not about other stuff/other people. Discontinue Trazodone. Will revisit. Increase Lacmital up to 100mg daily in the morning. 08/12/25: Patient only slept 3-1/2 hours, medication compliant. However, per nursing and and other disciplines report, patient appeared to be more manic today. Not able to stay in a topic. Disorganized, but pleasant and cooperative. She appears to be very busy on the phone all day long today in between groups. Patient agrees if she is not getting better by Friday she can stay a little bit longer than Friday. Discussed with patient regarding medication plan. Patient does not agree with the Seroquel increased up to 100 tonight but agrees with adding melatonin and trazodone as needed-25 mg only p.r.n.. She agreed that by tomorrow if she is still not able to sleep, Seroquel up to 100 mg. Reports constipated, and agreed to take Colace twice a day. Appears to have increased appetite, appeared to be tired today, but not resting, racing thoughts, tried to organize the stuff at home from here via phone. Patient continued to believe that the medial she has is evidence of the boyfriend someone did something make her be in danger. Melatonin 6 mg scheduled at bed. Trazodone 25 mg p.r.n. for insomnia. Colace 100 b.i.d. for constipation 08/13/25: Sleep improved- slept for 6 hours last night. Compliant with meds, denies side effects. She loves Melatonin that started last night. Patient agrees to have Trileptal increased up to total of 900mg/daily in divided dose. Review possible side effects of hyponatremia. Check CMP to get another baseline. Hyperverbal pleasant, mild anxiety, more organized that yesterday but appears to restless, not resting, keep herself very busy all day to the point that she states she does not have time to shower today yet. Discuss with patient regarding manic behaviors. Patient does not think she is manic and says it is her baseline. Patient may retract 3 day for further treatment time and medication management. No SI/SIB/HI/AVH. Perseveration on unsafe behavior on boyfriend which could be from her paranoid. Other than that, patient has not made any paranoid/delusions Trileptal 300mg daily in the morning and increase HS dose to 600mg for mood. CMP for 08/14/25. 08/14/25: Patient slept for 7 hours, compliant with medications. No side effects noted, what her blood pressure elevated yesterday, worse even clonidine 0.2 with good effect. Nursing reported the patient called the police, police called to the nurse station to make sure we do not have her call again. Patient continued to have a verbal, tangential, appeared hoarding food. Anxious, keep busy all day long with activities, not rested. She does not want to retracted 3 day today, but will think about that in the morning. No safety concern expressed except for calling the police yesterday. She is visible and attended groups, pleasant to talk to. Sodium is within limit. slightly elevated on liver function. Low on protein. 08/15/25: Patient did not slept last night, only slept fully 45 minutes. She keeps herself busy all day long with lots of ideas, on the phone a lot, not resting, she hoarding food in her room. Hyper verbal, tangential which got worse. She make unreasonable decision, giving personal phone number of family to one of the patients to call, continued to paranoid regarding the boyfriend and exhusband. She became more argumentative, not usually normal pleasant her during one-to-one assessment. Poor insight and poor judgment- letting stranger in the house. continue to perceive that she is not manic, and stated that this is her normal. Per nursing, and socially responsible investment adviser, patient got worse the past 2 days. She is not sleeping but do not appeared to be tired, increasing in irritable and anxiety mood. Discussed with patient regarding medication plan which patient does not agree with. She does not want any medication changes, in fact reports that Lamictal increased make her med more manic. She was inform the medication changes: Lamictal up to 150 mg, Trileptal up to total of 1200 mg in divided dose, Seroquel increased up to 100 mg at bedtime. Ativan 0.5 t.i.d., plus 1 mg t.i.d. p.r.n. for severe anxiety. Patient states that she will not take medication with those increase. Patient advised to take medication as recommended. She agreed to retracted 3 day, requests to see if she can be evaluated tonight to release/discharge. Informed that she will not be discharged today, she asked if she can retract insight another 3 day. This provider informed the patient that if she plans to sign another 3 day we may not let her retract but file on her instead. In the moment, she agrees that she will stay here to complete the treatment as long as needed. However, she signed the 3 day again in the afternoon, after this provider inform her about medication changes. She does not let this provider talked to her friend -Ravinder patient think Alexandro was affected by her boyfriend. She also paranoid about her ex . She now only just the neighbor, and want the neighbor to involve in the the family meeting that she requests. Call her outpatient provider Dr. Chris Maldonado at [phone]- [facility] with a call back. Plan Patient on 15 minute checks for safety. Admitted to [facility]. CV. Signed another 3 day notice up on 08/18/25- Patient would be a good candidate for civil commitment. Work with treatment team to do collateral and FLU appointments for aftercare. Spoke with Paul- Son at [phone]. Will touch base with him again next day as d/t the bad/weak phone signal, not able to complete the update. Contact the hospitalist regarding hospitalist consultation on admission: seen by Hospitalist on 08/10/25. Patient educated on: diagnosis, medication risk/benefits and therapeutic strategies Informed Consent: further education needed Reason for continued inpatient stay Substantial Risk for: med/psych decompensation Time Spent With Patient Time: Total time managing care of this patient today ____ minutes.
[2025-08-16 08:00] VITALS: BP 125/79; PULSE 66; RESP 14; TEMP 36.4; O2SAT 95
--- NOTE | 2025-08-16 16:54 | HO.PSYCHPN ---
Subjective Subjective Date of Service: 08/16/25 Reason For Visit: Manic behavior - Decomp Subjective Notes: 3 Day Healthcare Proxy: No Guardianship: No Medical Problems Affecting Mental Status: No Interim History: Medical record and nursing notes reviewed; case discussed during rounds with team/nursing staff, and met with patient for supportive therapy/psychoeducation, as well as medication management. Patient slept for 8 hours last night, was selective to what dose of medication she wants to take as she does not agree with the medication change yesterday. Do not want to take the Ativan. Discussed with patient regarding lithium. Patient do not want to start on lithium. Reports history of weight gain 40 lb, edema, fluid retention, and have some kidney issues. Patient admitted that it was helpful with her mood, she does not want to do with any side effects if we have to start it again. She also reports history of Depakote 25 years ago, but do not remember the side effects. She does not want to start on Depakote neither. Patient needle she with asking Seroquel to go down to 50 if we increase the Trileptal dose at bedtime. Advised patient continue with the same dose, with increase 900 of Trileptal at bedtime to see how she feels after tonight dose. We will not change/all lowered down on Seroquel at this moment. She also advised not to order anything to deliver to [facility]. She asked if she can order some art stuff , for people here and for herself to work on why she is here. She also reported that she have no close and have no bras, she had to wear three layers on the topx. When being told that she can not order stuff to delivered here, she states that another patient was allowed to order some clothes. She also pointed out does no written policy about it. Hyperverbal, tangential, but able to stay in topic during one-to-one assessment. She continued to have poor insight and poor judgment, do not believe she is manic, she rationale for or her hyperverbal and tangential is her normal this is not manic . Per nursing, patient does not like the way we using hyperverbal or tangential to prescribed her behavior. Some mild edema observed on bilateral ankles. We will continue to monitor. Medication Compliance: No Side effects from medications: No Attending Groups: Yes Review of Systems Acute medical concerns: No Medical Review of Systems: unchanged Review of Systems Review of Systems Constitutional: Denies fatigue and Denies fever(s) Cardiovascular: Denies chest pain and Denies dyspnea Respiratory: Denies dyspnea Gastrointestinal: Denies abdominal pain but constipated. Psychiatric: denies suicidal ideation Endocrine: Denies fatigue Edema on bilateral ankles Yes all other systems are reviewed and are negative Mental Status Exam Mental Status Exam Narrative: Patient is alert and oriented; behavior is cooperative, moderate to severe anxiety; patient is not in distress; dressed in casual attire with kempt hair and adequate hygiene; mood is anxious, argumentative with racing thoughts and affect congruent; eye contact appropriate; Speech is normal rate, volume and prosody and not pressured; but very hyperverbal, tangential which got worse, mild to moderate psychomotor agitation/retardation present; thought process is disorganized mostly with racing,hyper focus on wanting to order art supply online [employer] and want to order clothings to deliver to [facility]. Patient advised not to. Thought content is not on treatment, not pertinent to relevant topics at times. Appear to be paranoid regarding the boyfriend and ex-, not express SI/SIB/HI.. Patient's insight and judgment impaired and got worse. Decompensated. Diagnostics Vital Signs (24Hr): Vital Signs - 24 hr 08/15/25 20:00 08/16/25 08:00 Temperature 97.7 F 97.6 F Pulse Rate 75 66 Respiratory Rate 18 14 Blood Pressure 137/76 125/79 Pulse Oximetry 99 95 Oxygen Delivery Method Room Air Room Air BMI result Body Mass Index 25.4 Labs 08/14/25 07:22 Medications Medications Current Medications Acetaminophen (Acetaminophen 325 Mg Tablet) 650 mg PO Q6H PRN PRN Reason: Headache/Pain, Scale 1-10 Last Admin: 08/13/25 17:01 Dose: 650 mg Al Hydroxide/Mg Hydroxide (Magnesium Hydrox/Alum Hydrox 30 Ml Oral.Susp) 30 ml PO Q6H PRN PRN Reason: Heartburn/Nausea Capsaicin (Capsaicin 0.025% Cream 60 Gm Tube) 1 appl TOPICAL TID PRN; Protocol PRN Reason: Pain, Mild (Pain Scale 1-3) Last Admin: 08/15/25 00:51 Dose: 1 appl Clonidine HCl (Clonidine Hcl 0.2 Mg Tablet) 0.2 mg PO Q6H PRN; Protocol PRN Reason: SBP > 160 Last Admin: 08/15/25 13:41 Dose: 0.2 mg Docusate Sodium (Docusate Sodium 100 Mg Capsule) 100 mg PO BID [facility] Last Admin: 08/16/25 09:44 Dose: Not Given Hydroxyzine HCl (Hydroxyzine Hcl 25 Mg Tablet) 25 mg PO Q6H PRN PRN Reason: mild anxiety Last Admin: 08/11/25 01:27 Dose: 25 mg Lamotrigine (Lamotrigine 25 Mg Tablet) 75 mg PO DAILY [facility] Pitman Carbonate (Pitman Carbonate 300 Mg Capsule) 300 mg PO BID [facility] Last Admin: 08/16/25 16:15 Dose: Not Given Lorazepam (Lorazepam 0.5 Mg Tablet) 0.5 mg PO TID [facility] Last Admin: 08/16/25 16:15 Dose: Not Given Lorazepam (Lorazepam 1 Mg Tablet) 1 mg PO Q6H PRN PRN Reason: severe anxiety Magnesium Hydroxide (Milk Of Magnesia 30 Ml Oral.Susp) 30 ml PO DAILY PRN PRN Reason: Constipation Magnesium Oxide (Magnesium Oxide 400 Mg Tablet) 400 mg PO BEDTIME [facility] Last Admin: 08/15/25 21:40 Dose: 400 mg Melatonin (Melatonin 3 Mg Tablet) 6 mg PO BEDTIME [facility] Last Admin: 08/15/25 21:41 Dose: 6 mg Naproxen (Naproxen 500 Mg Tablet) 500 mg PO Q12H PRN PRN Reason: Pain, Moderate(Pain Scale 4-6) Last Admin: 08/15/25 21:50 Dose: 500 mg Nicotine (Nicotine 21 Mg Patch.Td24) 21 mg TRANSDERMA DAILY PRN PRN Reason: nicotine craving Nicotine Polacrilex (Nicotine Polacrilex 2 Mg Gum) 2 mg BUCCAL Q2H PRN PRN Reason: Nicotine Cravings Oxcarbazepine (Oxcarbazepine 300 Mg Tablet) 900 mg PO BEDTIME [facility] Oxcarbazepine (Oxcarbazepine 300 Mg Tablet) 300 mg PO DAILY [facility] Perphenazine (Perphenazine 2 Mg Tablet) 2 mg PO BEDTIME PRN PRN Reason: Insomnia Quetiapine Fumarate (Quetiapine Fumarate 25 Mg Tablet) 12.5 mg PO BID PRN PRN Reason: agitation/severe anxiety Last Admin: 08/14/25 17:07 Dose: 12.5 mg Quetiapine Fumarate (Quetiapine Fumarate 50 Mg Tablet) 150 mg PO BEDTIME [facility] Last Admin: 08/15/25 21:42 Dose: 75 mg Trazodone HCl (Trazodone Hcl 25 Mg Halftab) 25 mg PO BEDTIME PRN PRN Reason: Insomnia Allergies Allergies Allergy/AdvReac Type Severity Reaction Status Date / Time No Known Allergies Allergy Verified 08/09/25 21:18 Assessment & Plan Assessment & Plan (1) Bipolar affective, manic, unspec: Status: Acute Code(s): F31.10 - Bipolar disorder, current episode manic without psychotic features, unspecified (2) PTSD (post-traumatic stress disorder): Status: Acute Code(s): F43.10 - Post-traumatic stress disorder, unspecified (3) Arthritis: Status: Acute Code(s): M19.90 - Unspecified osteoarthritis, unspecified site Plan HPI: Patient is a 59 y.o divorce Wallisian speaking female with past medical and psychiatric history of bipolar, PTSD, arithritist, osteoporosis referred to [facility] from [facility] from ED. Patient presented to ED from home on 08/08/2025. She call 911 for wellness checks after and her best friend as her to get herself evaluated with concerns for her safety and mental status. Patient has been acting erratic, not sleeping, moving stuff around in her home 23/06, driving recklessly at high speed, texting threats to her partner, calling her partner's customers, and employees with threats. Formulation/clinical reasoning: ? If medication compliant, increase in manic behavior, paranoid/delusional. History of PTSD, bipolar. Was recently discharged at the beginning of the month from psychiatric hospital when she was not stable. Patient presented with manic behaviors that put herself at risk for safety. We will continue to monitor, medication adjustment, and provide therapeutic environment and groups for coping skills. We will refer patient back to outpatient psychiatric services and therapist for aftercare Hospital course: 08/10/25: Continue Lamictal 75 mg daily for mood. Trileptal 300 twice a day for mood. Seroquel 75 mg at bedtime for insomnia/mood 12.5 mg b.i.d. p.r.n. for agitation or severe anxiety. Perphenazine 2 mg p.r.n. at bedtime. Naproxen 500 b.i.d. p.r.n. arthritis. Trazodone as needed for insomnia. 08/11/25: Patient slept for 6 hours with restless sleep. Per nursing, patient appeared to be confused after taking trazodone. Patient give me the scenarios what was happening at night and she able to recall what she did during the night. She said is not confused, but she should take low dose of trazodone instead. Per record, she was given trazodone with the hydroxyzine and naproxen at around 01:26 in the morning. She remembers she was eating the cookie and milk and waking up crumbs and paper on her body. Advised patient not to combine them. Trazodone is now discontinued. We will revisit if patient needs it. Patient is tangential, very hyperverbal, sometimes not able to stay in the topic. Continue to perseveration on current boyfriend. She also would like to send her phone to the police where they can check the evidence of videos and screen shots as evidence for suspecting the boyfriend or some stranger being around in the house. She also asked what she should do, or should she file restraining order against her boyfriend. Some what her best friend told her that she may have psychosis break. Patient was advised to not making any big decision that could make her feel regret later on when she gets better as for now she is not stable enough. Patient also confused with the 3 day notice, to different staff to confirmed that she signed a 3 days on the day she came in which she did it with me yesterday. If she continues to improve, we will most likely to discharge on Friday. However, it is too early to decide if she is could be stable by that time. She is pleasant, anxious, but cooperative. Continue sharing a long story about her life. She verbally love this provider to call her son Paul at [phone] who called to the drug abuse social worker left voice message saying that he is a healthcare proxy, and power of hurricane tracker of his mom. Called Paul the above number, left voice message, with a number to call back. Waiting for response. Armen called back, was in the middle of conversation but was not having good signal. Therefore, will touch base with him another time. Per Armen, his mom basiclly comes to hospital and have episode once yearl. Regarding meds, Armen said it is in a black hole as no one is sure if his mom is compliant with meds or not. He also reports that the paranoid regarding his mom's boyfriend is not reality based. Update Paul with current manic behaviors and possible paranoid thoughts regarding her boyfriend but not about other stuff/other people. Discontinue Trazodone. Will revisit. Increase Lacmital up to 100mg daily in the morning. 08/12/25: Patient only slept 3-1/2 hours, medication compliant. However, per nursing and and other disciplines report, patient appeared to be more manic today. Not able to stay in a topic. Disorganized, but pleasant and cooperative. She appears to be very busy on the phone all day long today in between groups. Patient agrees if she is not getting better by Friday she can stay a little bit longer than Friday. Discussed with patient regarding medication plan. Patient does not agree with the Seroquel increased up to 100 tonight but agrees with adding melatonin and trazodone as needed-25 mg only p.r.n.. She agreed that by tomorrow if she is still not able to sleep, Seroquel up to 100 mg. Reports constipated, and agreed to take Colace twice a day. Appears to have increased appetite, appeared to be tired today, but not resting, racing thoughts, tried to organize the stuff at home from here via phone. Patient continued to believe that the medial she has is evidence of the boyfriend someone did something make her be in danger. Melatonin 6 mg scheduled at bed. Trazodone 25 mg p.r.n. for insomnia. Colace 100 b.i.d. for constipation 08/13/25: Sleep improved- slept for 6 hours last night. Compliant with meds, denies side effects. She loves Melatonin that started last night. Patient agrees to have Trileptal increased up to total of 900mg/daily in divided dose. Review possible side effects of hyponatremia. Check CMP to get another baseline. Hyperverbal pleasant, mild anxiety, more organized that yesterday but appears to restless, not resting, keep herself very busy all day to the point that she states she does not have time to shower today yet. Discuss with patient regarding manic behaviors. Patient does not think she is manic and says it is her baseline. Patient may retract 3 day for further treatment time and medication management. No SI/SIB/HI/AVH. Perseveration on unsafe behavior on boyfriend which could be from her paranoid. Other than that, patient has not made any paranoid/delusions Trileptal 300mg daily in the morning and increase HS dose to 600mg for mood. CMP for 08/14/25. 08/14/25: Patient slept for 7 hours, compliant with medications. No side effects noted, what her blood pressure elevated yesterday, worse even clonidine 0.2 with good effect. Nursing reported the patient called the police, police called to the nurse station to make sure we do not have her call again. Patient continued to have a verbal, tangential, appeared hoarding food. Anxious, keep busy all day long with activities, not rested. She does not want to retracted 3 day today, but will think about that in the morning. No safety concern expressed except for calling the police yesterday. She is visible and attended groups, pleasant to talk to. Sodium is within limit. slightly elevated on liver function. Low on protein. 08/15/25: Patient did not slept last night, only slept fully 45 minutes. She keeps herself busy all day long with lots of ideas, on the phone a lot, not resting, she hoarding food in her room. Hyper verbal, tangential which got worse. She make unreasonable decision, giving personal phone number of family to one of the patients to call, continued to paranoid regarding the boyfriend and exhusband. She became more argumentative, not usually normal pleasant her during one-to-one assessment. Poor insight and poor judgment- letting stranger in the house. continue to perceive that she is not manic, and stated that this is her normal. Per nursing, and drug abuse social worker, patient got worse the past 2 days. She is not sleeping but do not appeared to be tired, increasing in irritable and anxiety mood. Discussed with patient regarding medication plan which patient does not agree with. She does not want any medication changes, in fact reports that Lamictal increased make her med more manic. She was inform the medication changes: Lamictal up to 150 mg, Trileptal up to total of 1200 mg in divided dose, Seroquel increased up to 100 mg at bedtime. Ativan 0.5 t.i.d., plus 1 mg t.i.d. p.r.n. for severe anxiety. Patient states that she will not take medication with those increase. Patient advised to take medication as recommended. She agreed to retracted 3 day, requests to see if she can be evaluated tonight to release/discharge. Informed that she will not be discharged today, she asked if she can retract insight another 3 day. This provider informed the patient that if she plans to sign another 3 day we may not let her retract but file on her instead. In the moment, she agrees that she will stay here to complete the treatment as long as needed. However, she signed the 3 day again in the afternoon, after this provider inform her about medication changes. She does not let this provider talked to her friend -Ravinder patient think Alexandro was affected by her boyfriend. She also paranoid about her ex . She now only just the neighbor, and want the neighbor to involve in the the family meeting that she requests. Call her outpatient provider Dr. Chris Maldonado at [phone]- lvm with a call back. 08/16/25: Patient slept for 8 hours last night, was selective to what dose of medication she wants to take as she does not agree with the medication change yesterday. Do not want to take the Ativan. Discussed with patient regarding lithium. Patient do not want to start on lithium. Reports history of weight gain 40 lb, edema, fluid retention, and have some kidney issues. Patient admitted that it was helpful with her mood, she does not want to do with any side effects if we have to start it again. She also reports history of Depakote 25 years ago, but do not remember the side effects. She does not want to start on Depakote neither. Patient needle she with asking Seroquel to go down to 50 if we increase the Trileptal dose at bedtime. Advised patient continue with the same dose, with increase 900 of Trileptal at bedtime to see how she feels after tonight dose. We will not change/all lowered down on Seroquel. She also advised not to order anything to deliver to [facility]. She asked if she can order some art stuff , for people here and for herself to work on why she is here. She also reported that she have no close and have no bras, she had to wear three layers on the topx. When being told that she can not order stuff to delivered here, she states that another patient was allowed to order some clothes. She also pointed out does no written policy about it. Hyperverbal, tangential, but able to stay in topic during one-to-one assessment. She continued to have poor insight and poor judgment, do not believe she is manic, she rationale for or her hyperverbal and tangential is her normal this is not manic . Per nursing, patient does not like the way we using hyperverbal or tangential to prescribed her behavior. Some mild edema observed on bilateral ankles. We will continue to monitor. Continue with Trileptal current dose which was increased yesterday but she did not take new dose Agree to take it higher dose at night start tonight. Taper down on Lamictal- Per OP provider, patient would be manic on high dose. Continue with Seroquel 75mg at HS. Do not want to take Pitman d/t side effects from past experience. Plan Patient on 15 minute checks for safety. Admitted to . [facility]. Signed another 3 day notice up on 08/18/25- Patient would be a good candidate for civil commitment. Work with treatment team to do collateral and FLU appointments for aftercare. Spoke with Paul- Son at [phone]. Will touch base with him again next day as d/t the bad/weak phone signal, not able to complete the update. Contact the hospitalist regarding hospitalist consultation on admission: seen by Hospitalist on 08/10/25. Collateral: 08/16/25: Spoke with Dr. Chris Maldonado (outpatient provider Dr. Chris Maldonado at [phone]): Dr. Maldonado thinks we should limit her phone calls. Dr Maldonado stressed that patient should be on lithium, knowing some slightly elevated on TSH. He added, elevated we can start on thyroid medication to treat it. Dr. Maldonado said patient appeared to be more manic on higher dose of Lamictal which he was trying to take per it down. Dr. Maldonado was informed the current mental status of the patient, manic, hyperverbal, paranoid. Patient educated on: diagnosis, medication risk/benefits and therapeutic strategies Informed Consent: understands and further education needed Reason for continued inpatient stay Substantial Risk for: med/psych decompensation Time Spent With Patient Time: Total time managing care of this patient today ____ minutes.
[2025-08-16 20:05] VITALS: BP 127/74; PULSE 65; RESP 16; TEMP 36.8; O2SAT 96
[2025-08-17 07:30] VITALS: BP 148/83; PULSE 69; RESP 18; TEMP 36.2; O2SAT 99
--- NOTE | 2025-08-17 13:29 | HO.PSYCHPN ---
Subjective Subjective Date of Service: 08/17/25 Reason For Visit: Manic behavior - Decomp Subjective Notes: 3 Day Interim History: 3 day notice up 08/18/25; pt reports she is considering retracting 3 day notice tomorrow. Active on unit. Intrusive. Rapid speech. Rambling at times. Flight of ideas. Circumstantial. Perseverative regarding her ex- and ex-boyfriend. Presents with poor insight into behaviors prior to admission and while on the unit. She is requesting to have Seroquel decreased to 75mg d/t feeling over-sedated; Seroquel decreased to 75mg PO bedtime. Patient also requested to have Ativan discontinued d/t reporting she feels she does not need it ; DC Ativan. T/W continuously educated patient regarding mood stabilizers, dosages and possible side effects. Patient reports she knows that lithium worked best for her however, is concerned about gaining weight and other possible side effects. After further discussion, patient agreed to starting [place] 300mg PO BID. T/W obtained collateral from patient's ex-, Stephan Carroll, who reports he has known pt since they were 16 years old and is still in contact with pt. He reports patient has done best on lithium however does not like taking it due to weight gain. He reports concern due to patient calling her [employer] financial[employer] consultant while she is hospitalized, saying she would like to spend 1.7 million to trying purchase her ex-boyfriend's business . T/W also obtain collateral from patient's friend, Alexandro, who reports concerns regarding patient's safety due to patient inviting a woman she met a month ago at [employer] to come live with her along with her 2 kids . She reports security camera showing people leaving in and out of the home at different times of the day. Alexandro states she is worried patient will be taken advantage of due to being well to do . Patient's ex-boyfriend, Cal Wetzel, contacted T/W; Mr. Wetzel was informed there was not a release of information and T/W was not able to discuss patient's status or treatment plan. Mr. Wetzel stated he wanted to relay information regarding patient. He stated he moved out of the house today d/t patient threatening she will start a war and shantelle him . He is worried she is being scammed by the people who are moving in and out of her home. Mr. Wetzel reports, patient called the SALES [employer]CE DEVELOPER of his company and told them he is a serial killer and has been contacting his employees and stating the same . This leader writer called patient's outpatient psychiatrist, Dr. Maldonado; awaiting callback. Medication Compliance: Intermittent Side effects from medications: No Attending Groups: Yes Mental Status Exam Mental Status Exam Narrative: Pt is alert and oriented; behavior is cooperative, intrusive, talkative; dressed in casual attire; mood is described as good ; eye contact appropriate; Speech is rapid rate, normal volume, rambling at times; circumstantial, perseverative, flight of ideas, grandiose; denies SI/HI/AH/VH. Diagnostics Vital Signs (24Hr): Vital Signs - 24 hr 08/16/25 20:05 08/17/25 07:30 Temperature 98.2 F 97.2 F Pulse Rate 65 69 Respiratory Rate 16 18 Blood Pressure 127/74 148/83 H Pulse Oximetry 96 99 Oxygen Delivery Method Room Air Room Air BMI result Body Mass Index 25.4 Labs 08/14/25 07:22 Medications Medications Current Medications Acetaminophen (Acetaminophen 325 Mg Tablet) 650 mg PO Q6H PRN PRN Reason: Headache/Pain, Scale 1-10 Last Admin: 08/13/25 17:01 Dose: 650 mg Al Hydroxide/Mg Hydroxide (Magnesium Hydrox/Alum Hydrox 30 Ml Oral.Susp) 30 ml PO Q6H PRN PRN Reason: Heartburn/Nausea Capsaicin (Capsaicin 0.025% Cream 60 Gm Tube) 1 appl TOPICAL TID PRN; Protocol PRN Reason: Pain, Mild (Pain Scale 1-3) Last Admin: 08/15/25 00:51 Dose: 1 appl Clonidine HCl (Clonidine Hcl 0.2 Mg Tablet) 0.2 mg PO Q6H PRN; Protocol PRN Reason: SBP > 160 Last Admin: 08/15/25 13:41 Dose: 0.2 mg Divalproex Sodium (Divalproex Sodium Er 250 Mg Tab.Er.24h) 250 mg PO BEDTIME [facility] Docusate Sodium (Docusate Sodium 100 Mg Capsule) 100 mg PO BID PRN PRN Reason: Constipation Hydroxyzine HCl (Hydroxyzine Hcl 25 Mg Tablet) 25 mg PO Q6H PRN PRN Reason: mild anxiety Last Admin: 08/11/25 01:27 Dose: 25 mg Lamotrigine (Lamotrigine 25 Mg Tablet) 75 mg PO DAILY [facility] Last Admin: 08/17/25 08:58 Dose: 75 mg [place] Carbonate ([place] Carbonate 300 Mg Capsule) 300 mg PO BID [facility] Last Admin: 08/17/25 08:59 Dose: Not Given Lorazepam (Lorazepam 1 Mg Tablet) 1 mg PO TID PRN PRN Reason: severe anxiety Magnesium Hydroxide (Milk Of Magnesia 30 Ml Oral.Susp) 30 ml PO DAILY PRN PRN Reason: Constipation Magnesium Oxide (Magnesium Oxide 400 Mg Tablet) 400 mg PO BEDTIME [facility] Last Admin: 08/16/25 22:02 Dose: 400 mg Melatonin (Melatonin 3 Mg Tablet) 6 mg PO BEDTIME [facility] Last Admin: 08/16/25 22:02 Dose: 6 mg Naproxen (Naproxen 500 Mg Tablet) 500 mg PO Q12H PRN PRN Reason: Pain, Moderate(Pain Scale 4-6) Last Admin: 08/15/25 21:50 Dose: 500 mg Oxcarbazepine (Oxcarbazepine 300 Mg Tablet) 900 mg PO BEDTIME [facility] Last Admin: 08/16/25 22:02 Dose: 900 mg Oxcarbazepine (Oxcarbazepine 300 Mg Tablet) 300 mg PO DAILY [facility] Last Admin: 08/17/25 08:58 Dose: 300 mg Perphenazine (Perphenazine 2 Mg Tablet) 2 mg PO BEDTIME PRN PRN Reason: Insomnia Quetiapine Fumarate (Quetiapine Fumarate 25 Mg Tablet) 12.5 mg PO BID PRN PRN Reason: agitation/severe anxiety Last Admin: 08/14/25 17:07 Dose: 12.5 mg Quetiapine Fumarate (Quetiapine Fumarate 25 Mg Tablet) 75 mg PO BEDTIME [facility] Trazodone HCl (Trazodone Hcl 25 Mg Halftab) 25 mg PO BEDTIME PRN PRN Reason: Insomnia Allergies Allergies Allergy/AdvReac Type Severity Reaction Status Date / Time No Known Allergies Allergy Verified 08/09/25 21:18 Assessment & Plan Assessment & Plan (1) Bipolar affective, manic, unspec: Status: Acute Code(s): F31.10 - Bipolar disorder, current episode manic without psychotic features, unspecified (2) PTSD (post-traumatic stress disorder): Status: Acute Code(s): F43.10 - Post-traumatic stress disorder, unspecified (3) Arthritis: Status: Acute Code(s): M19.90 - Unspecified osteoarthritis, unspecified site Plan Patient is a 59 y.o divorce Portuguese speaking female with past medical and psychiatric history of bipolar, PTSD, arithritist, osteoporosis referred to [facility] from [facility] from ED. Patient presented to ED from home on 08/08/2025. She call 911 for wellness checks after and her best friend as her to get herself evaluated with concerns for her safety and mental status. Patient has been acting erratic, not sleeping, moving stuff around in her home 23/06, driving recklessly at high speed, texting threats to her partner, calling her partner's customers, and employees with threats. Formulation/clinical reasoning: ? If medication compliant, increase in manic behavior, paranoid/delusional. History of PTSD, bipolar. Was recently discharged at the beginning of the month from psychiatric hospital when she was not stable. Patient presented with manic behaviors that put herself at risk for safety. We will continue to monitor, medication adjustment, and provide therapeutic environment and groups for coping skills. We will refer patient back to outpatient psychiatric services and therapist for aftercare Plan: Patient on 15 minute checks for safety. Admitted to . . Signed another 3 day notice up on 08/18/25- Patient would be a good candidate for civil commitment. Work with treatment team to do collateral and FLU appointments for aftercare. Spoke with Paul- Son at [phone]. Will touch base with him again next day as d/t the bad/weak phone signal, not able to complete the update. Contact the hospitalist regarding hospitalist consultation on admission: seen by Hospitalist on 08/10/25. 08/10/25: Continue Lamictal 75 mg daily for mood. Trileptal 300 twice a day for mood. Seroquel 75 mg at bedtime for insomnia/mood 12.5 mg b.i.d. p.r.n. for agitation or severe anxiety. Perphenazine 2 mg p.r.n. at bedtime. Naproxen 500 b.i.d. p.r.n. arthritis. Trazodone as needed for insomnia. 08/11/25: Patient slept for 6 hours with restless sleep. Per nursing, patient appeared to be confused after taking trazodone. Patient give me the scenarios what was happening at night and she able to recall what she did during the night. She said is not confused, but she should take low dose of trazodone instead. Per record, she was given trazodone with the hydroxyzine and naproxen at around 01:26 in the morning. She remembers she was eating the cookie and milk and waking up crumbs and paper on her body. Advised patient not to combine them. Trazodone is now discontinued. We will revisit if patient needs it. Patient is tangential, very hyperverbal, sometimes not able to stay in the topic. Continue to perseveration on current boyfriend. She also would like to send her phone to the police where they can check the evidence of videos and screen shots as evidence for suspecting the boyfriend or some stranger being around in the house. She also asked what she should do, or should she file restraining order against her boyfriend. Some what her best friend told her that she may have psychosis break. Patient was advised to not making any big decision that could make her feel regret later on when she gets better as for now she is not stable enough. Patient also confused with the 3 day notice, to different staff to confirmed that she signed a 3 days on the day she came in which she did it with me yesterday. If she continues to improve, we will most likely to discharge on Friday. However, it is too early to decide if she is could be stable by that time. She is pleasant, anxious, but cooperative. Continue sharing a long story about her life. She verbally love this provider to call her son Paul at [phone] who called to the social work lecturer left voice message saying that he is a healthcare proxy, and power of immigration attorney of his mom. Called Paul the above number, left voice message, with a number to call back. Waiting for response. Armen called back, was in the middle of conversation but was not having good signal. Therefore, will touch base with him another time. Per Armen, his mom basiclly comes to hospital and have episode once yearl. Regarding meds, Armen said it is in a black hole as no one is sure if his mom is compliant with meds or not. He also reports that the paranoid regarding his mom's boyfriend is not reality based. Update Paul with current manic behaviors and possible paranoid thoughts regarding her boyfriend but not about other stuff/other people. Discontinue Trazodone. Will revisit. Increase Lacmital up to 100mg daily in the morning. 08/12/25: Patient only slept 3-1/2 hours, medication compliant. However, per nursing and and other disciplines report, patient appeared to be more manic today. Not able to stay in a topic. Disorganized, but pleasant and cooperative. She appears to be very busy on the phone all day long today in between groups. Patient agrees if she is not getting better by Friday she can stay a little bit longer than Friday. Discussed with patient regarding medication plan. Patient does not agree with the Seroquel increased up to 100 tonight but agrees with adding melatonin and trazodone as needed-25 mg only p.r.n.. She agreed that by tomorrow if she is still not able to sleep, Seroquel up to 100 mg. Reports constipated, and agreed to take Colace twice a day. Appears to have increased appetite, appeared to be tired today, but not resting, racing thoughts, tried to organize the stuff at home from here via phone. Patient continued to believe that the medial she has is evidence of the boyfriend someone did something make her be in danger. Melatonin 6 mg scheduled at bed. Trazodone 25 mg p.r.n. for insomnia. Colace 100 b.i.d. for constipation 08/13/25: Sleep improved- slept for 6 hours last night. Compliant with meds, denies side effects. She loves Melatonin that started last night. Patient agrees to have Trileptal increased up to total of 900mg/daily in divided dose. Review possible side effects of hyponatremia. Check CMP to get another baseline. Hyperverbal pleasant, mild anxiety, more organized that yesterday but appears to restless, not resting, keep herself very busy all day to the point that she states she does not have time to shower today yet. Discuss with patient regarding manic behaviors. Patient does not think she is manic and says it is her baseline. Patient may retract 3 day for further treatment time and medication management. No SI/SIB/HI/AVH. Perseveration on unsafe behavior on boyfriend which could be from her paranoid. Other than that, patient has not made any paranoid/delusions Trileptal 300mg daily in the morning and increase HS dose to 600mg for mood. CMP for 08/14/25. 08/14/25: Patient slept for 7 hours, compliant with medications. No side effects noted, what her blood pressure elevated yesterday, worse even clonidine 0.2 with good effect. Nursing reported the patient called the police, police called to the nurse station to make sure we do not have her call again. Patient continued to have a verbal, tangential, appeared hoarding food. Anxious, keep busy all day long with activities, not rested. She does not want to retracted 3 day today, but will think about that in the morning. No safety concern expressed except for calling the police yesterday. She is visible and attended groups, pleasant to talk to. Sodium is within limit. slightly elevated on liver function. Low on protein. 08/15/25: Patient did not slept last night, only slept fully 45 minutes. She keeps herself busy all day long with lots of ideas, on the phone a lot, not resting, she hoarding food in her room. Hyper verbal, tangential which got worse. She make unreasonable decision, giving personal phone number of family to one of the patients to call, continued to paranoid regarding the boyfriend and exhusband. She became more argumentative, not usually normal pleasant her during one-to-one assessment. Poor insight and poor judgment- letting stranger in the house. continue to perceive that she is not manic, and stated that this is her normal. Per nursing, and social work lecturer, patient got worse the past 2 days. She is not sleeping but do not appeared to be tired, increasing in irritable and anxiety mood. Discussed with patient regarding medication plan which patient does not agree with. She does not want any medication changes, in fact reports that Lamictal increased make her med more manic. She was inform the medication changes: Lamictal up to 150 mg, Trileptal up to total of 1200 mg in divided dose, Seroquel increased up to 100 mg at bedtime. Ativan 0.5 t.i.d., plus 1 mg t.i.d. p.r.n. for severe anxiety. Patient states that she will not take medication with those increase. Patient advised to take medication as recommended. She agreed to retracted 3 day, requests to see if she can be evaluated tonight to release/discharge. Informed that she will not be discharged today, she asked if she can retract insight another 3 day. This provider informed the patient that if she plans to sign another 3 day we may not let her retract but file on her instead. In the moment, she agrees that she will stay here to complete the treatment as long as needed. However, she signed the 3 day again in the afternoon, after this provider inform her about medication changes. She does not let this provider talked to her friend -Ravinder patient think Alexandro was affected by her boyfriend. She also paranoid about her ex . She now only just the neighbor, and want the neighbor to involve in the the family meeting that she requests. Call her outpatient provider Dr. Chris Maldonado at [phone]- lvm with a call back. 08/16/25: Patient slept for 8 hours last night, was selective to what dose of medication she wants to take as she does not agree with the medication change yesterday. Do not want to take the Ativan. Discussed with patient regarding lithium. Patient do not want to start on lithium. Reports history of weight gain 40 lb, edema, fluid retention, and have some kidney issues. Patient admitted that it was helpful with her mood, she does not want to do with any side effects if we have to start it again. She also reports history of Depakote 25 years ago, but do not remember the side effects. She does not want to start on Depakote neither. Patient needle she with asking Seroquel to go down to 50 if we increase the Trileptal dose at bedtime. Advised patient continue with the same dose, with increase 900 of Trileptal at bedtime to see how she feels after tonight dose. We will not change/all lowered down on Seroquel. She also advised not to order anything to deliver to [facility]. She asked if she can order some art stuff , for people here and for herself to work on why she is here. She also reported that she have no close and have no bras, she had to wear three layers on the topx. When being told that she can not order stuff to delivered here, she states that another patient was allowed to order some clothes. She also pointed out does no written policy about it. Hyperverbal, tangential, but able to stay in topic during one-to-one assessment. She continued to have poor insight and poor judgment, do not believe she is manic, she rationale for or her hyperverbal and tangential is her normal this is not manic . Per nursing, patient does not like the way we using hyperverbal or tangential to prescribed her behavior. Some mild edema observed on bilateral ankles. We will continue to monitor. Continue with Trileptal current dose which was increased yesterday but she did not take new dose Agree to take it higher dose at night start tonight. Taper down on Lamictal- Per OP provider, patient would be manic on high dose. Continue with Seroquel 75mg at HS. Do not want to take [place] d/t side effects from past experience. Collateral: 08/16/25: Spoke with Dr. Chris Maldonado (outpatient provider Dr. Chris Maldonado at [phone]): Dr. Maldonado thinks we should limit her phone calls. Dr Maldonado stressed that patient should be on lithium, knowing some slightly elevated on TSH. He added, elevated we can start on thyroid medication to treat it. Dr. Maldonado said patient appeared to be more manic on higher dose of Lamictal which he was trying to take per it down. Dr. Maldonado was informed the current mental status of the patient, manic, hyperverbal, paranoid. 08/17: 3 day notice up 08/18/25; pt reports she is considering retracting 3 day notice tomorrow. Active on unit. Intrusive. Rapid speech. Rambling at times. Flight of ideas. Circumstantial. Perseverative regarding her ex- and ex-boyfriend. Presents with poor insight into behaviors prior to admission and while on the unit. She is requesting to have Seroquel decreased to 75mg d/t feeling over-sedated; Seroquel decreased to 75mg PO bedtime. Patient also requested to have Ativan discontinued d/t reporting she feels she does not need it ; DC Ativan. T/W continuously educated patient regarding mood stabilizers, dosages and possible side effects. Patient reports she knows that lithium worked best for her however, is concerned about gaining weight and other possible side effects. After further discussion, patient agreed to starting [place] 300mg PO BID. T/W obtained collateral from patient's ex-, Stephan Carroll, who reports he has known pt since they were 16 years old and is still in contact with pt. He reports patient has done best on lithium however does not like taking it due to weight gain. He reports concern due to patient calling her [employer] financial[employer] consultant while she is hospitalized, saying she would like to spend 1.7 million to trying purchase her ex-boyfriend's business . T/W also obtain collateral from patient's friend, Alexandro, who reports concerns regarding patient's safety due to patient inviting a woman she met a month ago at [employer] to come live with her along with her 2 kids . She reports security camera showing people leaving in and out of the home at different times of the day. Alexandro states she is worried patient will be taken advantage of due to being well to do . Patient's ex-boyfriend, Cal Wetzel, contacted T/W; Mr. Wetzel was informed there was not a release of information and T/W was not able to discuss patient's status or treatment plan. Mr. Wetzel stated he wanted to relay information regarding patient. He stated he moved out of the house today d/t patient threatening she will start a war and shantelle him . He is worried she is being scammed by the people who are moving in and out of her home. Mr. Wetzel reports, patient called the SALES [employer]CE DEVELOPER of his company and told them he is a serial killer and has been contacting his employees and stating the same . This leader writer called patient's outpatient psychiatrist, Dr. Maldonado; awaiting callback. Patient educated on: diagnosis and medication risk/benefits Reason for continued inpatient stay Substantial Risk for: med/psych decompensation Time Spent With Patient Time: Total time managing care of this patient today _60___ minutes.
[2025-08-17 19:57] VITALS: BP 137/80; PULSE 66; RESP 20; TEMP 36.6; O2SAT 97
[2025-08-18 07:00] VITALS: BMI 26.1
[2025-08-18 07:40] VITALS: BP 142/74; PULSE 65; RESP 16; TEMP 36.6; O2SAT 99
--- NOTE | 2025-08-18 13:26 | HO.PSYCHPN ---
Subjective Subjective Date of Service: 08/18/25 Reason For Visit: Manic behavior - Decomp Subjective Notes: Section 7 Interim History: Patient continues to present similar to yesterday. intrusive in other pt's treatment. Talking over T/W during assessment and not allowing for back and forth conversation. Rapid speech. Rambling at times. Flight of ideas. Circumstantial. Perseverative regarding her ex- and ex-boyfriend. T/W met with pt to discuss treatment plan and if she would retract 3 day notice; pt declined and she was informed she would be filed on.Patient compliant with HS [place] dose, however continues to refuse AM dose despite education of importance regarding medication compliance. Per nursing notes, pt calling police department multiple times last evening; police asked nursing to have pt stop calling. pt slept 3.5 hours last night; encouraged to take Ativan PRN to help with sleep. Medication Compliance: Intermittent Side effects from medications: No Attending Groups: Yes Mental Status Exam Mental Status Exam Narrative: Pt is alert and oriented; behavior is intrusive, talkative; dressed in casual attire, disheveled; mood is labile; eye contact appropriate; Speech is rapid rate, normal volume, rambling at times; circumstantial, perseverative, flight of ideas, grandiose; denies SI/HI/AH/VH. Diagnostics Vital Signs (24Hr): Vital Signs - 24 hr 08/17/25 19:57 08/18/25 07:40 Temperature 97.9 F 97.9 F Pulse Rate 66 65 Respiratory Rate 20 16 Blood Pressure 137/80 142/74 H Pulse Oximetry 97 99 Oxygen Delivery Method Room Air Room Air BMI result Body Mass Index 26.1 Labs 08/14/25 07:22 Medications Medications Current Medications Acetaminophen (Acetaminophen 325 Mg Tablet) 650 mg PO Q6H PRN PRN Reason: Headache/Pain, Scale 1-10 Last Admin: 08/13/25 17:01 Dose: 650 mg Al Hydroxide/Mg Hydroxide (Magnesium Hydrox/Alum Hydrox 30 Ml Oral.Susp) 30 ml PO Q6H PRN PRN Reason: Heartburn/Nausea Capsaicin (Capsaicin 0.025% Cream 60 Gm Tube) 1 appl TOPICAL TID PRN; Protocol PRN Reason: Pain, Mild (Pain Scale 1-3) Last Admin: 08/17/25 22:22 Dose: 1 appl Clonidine HCl (Clonidine Hcl 0.2 Mg Tablet) 0.2 mg PO Q6H PRN; Protocol PRN Reason: SBP > 160 Last Admin: 08/15/25 13:41 Dose: 0.2 mg Docusate Sodium (Docusate Sodium 100 Mg Capsule) 100 mg PO BID PRN PRN Reason: Constipation Last Admin: 08/17/25 22:23 Dose: 100 mg Hydroxyzine HCl (Hydroxyzine Hcl 25 Mg Tablet) 25 mg PO Q6H PRN PRN Reason: mild anxiety Last Admin: 08/18/25 01:05 Dose: 25 mg Lamotrigine (Lamotrigine 25 Mg Tablet) 50 mg PO DAILY ST[place] Carbonate ([place] Carbonate 300 Mg Capsule) 300 mg PO BID COUNTS INCLUDE 234 BEDS AT THE [facility] Last Admin: 08/18/25 09:16 Dose: Not Given Lorazepam (Lorazepam 1 Mg Tablet) 1 mg PO TID PRN PRN Reason: severe anxiety Magnesium Hydroxide (Milk Of Magnesia 30 Ml Oral.Susp) 30 ml PO DAILY PRN PRN Reason: Constipation Magnesium Oxide (Magnesium Oxide 400 Mg Tablet) 400 mg PO BEDTIME COUNTS INCLUDE 234 BEDS AT THE [facility] Last Admin: 08/17/25 22:09 Dose: 400 mg Melatonin (Melatonin 3 Mg Tablet) 6 mg PO BEDTIME COUNTS INCLUDE 234 BEDS AT THE [facility] Last Admin: 08/17/25 22:09 Dose: 6 mg Naproxen (Naproxen 500 Mg Tablet) 500 mg PO Q12H PRN PRN Reason: Pain, Moderate(Pain Scale 4-6) Last Admin: 08/15/25 21:50 Dose: 500 mg Oxcarbazepine (Oxcarbazepine 300 Mg Tablet) 900 mg PO BEDTIME COUNTS INCLUDE 234 BEDS AT THE [facility] Last Admin: 08/17/25 22:09 Dose: 900 mg Oxcarbazepine (Oxcarbazepine 300 Mg Tablet) 300 mg PO DAILY COUNTS INCLUDE 234 BEDS AT THE [facility] Last Admin: 08/18/25 09:14 Dose: 300 mg Perphenazine (Perphenazine 2 Mg Tablet) 2 mg PO BEDTIME PRN PRN Reason: Insomnia Quetiapine Fumarate (Quetiapine Fumarate 25 Mg Tablet) 12.5 mg PO BID PRN PRN Reason: agitation/severe anxiety Last Admin: 08/18/25 01:04 Dose: 12.5 mg Quetiapine Fumarate (Quetiapine Fumarate 25 Mg Tablet) 75 mg PO BEDTIME COUNTS INCLUDE 234 BEDS AT THE [facility] Last Admin: 08/17/25 22:08 Dose: 75 mg Allergies Allergies Allergy/AdvReac Type Severity Reaction Status Date / Time No Known Allergies Allergy Verified 08/09/25 21:18 Assessment & Plan Assessment & Plan (1) Bipolar disorder with severe krista: Status: Acute Code(s): F31.13 - Bipolar disorder, current episode manic without psychotic features, severe (2) PTSD (post-traumatic stress disorder): Status: Acute Code(s): F43.10 - Post-traumatic stress disorder, unspecified Plan Patient is a 59 y.o divorce Czech speaking female with past medical and psychiatric history of bipolar, PTSD, arithritist, osteoporosis referred to [facility] from ED. Patient presented to ED from home on 08/08/2025. She call 911 for wellness checks after and her best friend as her to get herself evaluated with concerns for her safety and mental status. Patient has been acting erratic, not sleeping, moving stuff around in her home 23/06, driving recklessly at high speed, texting threats to her partner, calling her partner's customers, and employees with threats. Formulation/clinical reasoning: ? If medication compliant, increase in manic behavior, paranoid/delusional. History of PTSD, bipolar. Was recently discharged at the beginning of the month from psychiatric hospital when she was not stable. Patient presented with manic behaviors that put herself at risk for safety. We will continue to monitor, medication adjustment, and provide therapeutic environment and groups for coping skills. We will refer patient back to outpatient psychiatric services and therapist for aftercare Plan: Patient on 15 minute checks for safety. Admitted to . CV. Signed another 3 day notice up on 08/18/25- Patient would be a good candidate for civil commitment. Work with treatment team to do collateral and FLU appointments for aftercare. Spoke with Paul- Son at [phone]. Will touch base with him again next day as d/t the bad/weak phone signal, not able to complete the update. Contact the hospitalist regarding hospitalist consultation on admission: seen by Hospitalist on 08/10/25. 08/10/25: Continue Lamictal 75 mg daily for mood. Trileptal 300 twice a day for mood. Seroquel 75 mg at bedtime for insomnia/mood 12.5 mg b.i.d. p.r.n. for agitation or severe anxiety. Perphenazine 2 mg p.r.n. at bedtime. Naproxen 500 b.i.d. p.r.n. arthritis. Trazodone as needed for insomnia. 08/11/25: Patient slept for 6 hours with restless sleep. Per nursing, patient appeared to be confused after taking trazodone. Patient give me the scenarios what was happening at night and she able to recall what she did during the night. She said is not confused, but she should take low dose of trazodone instead. Per record, she was given trazodone with the hydroxyzine and naproxen at around 01:26 in the morning. She remembers she was eating the cookie and milk and waking up crumbs and paper on her body. Advised patient not to combine them. Trazodone is now discontinued. We will revisit if patient needs it. Patient is tangential, very hyperverbal, sometimes not able to stay in the topic. Continue to perseveration on current boyfriend. She also would like to send her phone to the police where they can check the evidence of videos and screen shots as evidence for suspecting the boyfriend or some stranger being around in the house. She also asked what she should do, or should she file restraining order against her boyfriend. Some what her best friend told her that she may have psychosis break. Patient was advised to not making any big decision that could make her feel regret later on when she gets better as for now she is not stable enough. Patient also confused with the 3 day notice, to different staff to confirmed that she signed a 3 days on the day she came in which she did it with me yesterday. If she continues to improve, we will most likely to discharge on Friday. However, it is too early to decide if she is could be stable by that time. She is pleasant, anxious, but cooperative. Continue sharing a long story about her life. She verbally love this provider to call her son Paul at [phone] who called to the healthcare social worker left voice message saying that he is a healthcare proxy, and power of commercial attorney of his mom. Called Paul the above number, left voice message, with a number to call back. Waiting for response. Armen called back, was in the middle of conversation but was not having good signal. Therefore, will touch base with him another time. Per Armen, his mom basiclly comes to hospital and have episode once yearl. Regarding meds, Armen said it is in a black hole as no one is sure if his mom is compliant with meds or not. He also reports that the paranoid regarding his mom's boyfriend is not reality based. Update Paul with current manic behaviors and possible paranoid thoughts regarding her boyfriend but not about other stuff/other people. Discontinue Trazodone. Will revisit. Increase Lacmital up to 100mg daily in the morning. 08/12/25: Patient only slept 3-1/2 hours, medication compliant. However, per nursing and and other disciplines report, patient appeared to be more manic today. Not able to stay in a topic. Disorganized, but pleasant and cooperative. She appears to be very busy on the phone all day long today in between groups. Patient agrees if she is not getting better by Friday she can stay a little bit longer than Friday. Discussed with patient regarding medication plan. Patient does not agree with the Seroquel increased up to 100 tonight but agrees with adding melatonin and trazodone as needed-25 mg only p.r.n.. She agreed that by tomorrow if she is still not able to sleep, Seroquel up to 100 mg. Reports constipated, and agreed to take Colace twice a day. Appears to have increased appetite, appeared to be tired today, but not resting, racing thoughts, tried to organize the stuff at home from here via phone. Patient continued to believe that the medial she has is evidence of the boyfriend someone did something make her be in danger. Melatonin 6 mg scheduled at bed. Trazodone 25 mg p.r.n. for insomnia. Colace 100 b.i.d. for constipation 08/13/25: Sleep improved- slept for 6 hours last night. Compliant with meds, denies side effects. She loves Melatonin that started last night. Patient agrees to have Trileptal increased up to total of 900mg/daily in divided dose. Review possible side effects of hyponatremia. Check CMP to get another baseline. Hyperverbal pleasant, mild anxiety, more organized that yesterday but appears to restless, not resting, keep herself very busy all day to the point that she states she does not have time to shower today yet. Discuss with patient regarding manic behaviors. Patient does not think she is manic and says it is her baseline. Patient may retract 3 day for further treatment time and medication management. No SI/SIB/HI/AVH. Perseveration on unsafe behavior on boyfriend which could be from her paranoid. Other than that, patient has not made any paranoid/delusions Trileptal 300mg daily in the morning and increase HS dose to 600mg for mood. CMP for 08/14/25. 08/14/25: Patient slept for 7 hours, compliant with medications. No side effects noted, what her blood pressure elevated yesterday, worse even clonidine 0.2 with good effect. Nursing reported the patient called the police, police called to the nurse station to make sure we do not have her call again. Patient continued to have a verbal, tangential, appeared hoarding food. Anxious, keep busy all day long with activities, not rested. She does not want to retracted 3 day today, but will think about that in the morning. No safety concern expressed except for calling the police yesterday. She is visible and attended groups, pleasant to talk to. Sodium is within limit. slightly elevated on liver function. Low on protein. 08/15/25: Patient did not slept last night, only slept fully 45 minutes. She keeps herself busy all day long with lots of ideas, on the phone a lot, not resting, she hoarding food in her room. Hyper verbal, tangential which got worse. She make unreasonable decision, giving personal phone number of family to one of the patients to call, continued to paranoid regarding the boyfriend and exhusband. She became more argumentative, not usually normal pleasant her during one-to-one assessment. Poor insight and poor judgment- letting stranger in the house. continue to perceive that she is not manic, and stated that this is her normal. Per nursing, and healthcare social worker, patient got worse the past 2 days. She is not sleeping but do not appeared to be tired, increasing in irritable and anxiety mood. Discussed with patient regarding medication plan which patient does not agree with. She does not want any medication changes, in fact reports that Lamictal increased make her med more manic. She was inform the medication changes: Lamictal up to 150 mg, Trileptal up to total of 1200 mg in divided dose, Seroquel increased up to 100 mg at bedtime. Ativan 0.5 t.i.d., plus 1 mg t.i.d. p.r.n. for severe anxiety. Patient states that she will not take medication with those increase. Patient advised to take medication as recommended. She agreed to retracted 3 day, requests to see if she can be evaluated tonight to release/discharge. Informed that she will not be discharged today, she asked if she can retract insight another 3 day. This provider informed the patient that if she plans to sign another 3 day we may not let her retract but file on her instead. In the moment, she agrees that she will stay here to complete the treatment as long as needed. However, she signed the 3 day again in the afternoon, after this provider inform her about medication changes. She does not let this provider talked to her friend -Ravinder patient think Alexandro was affected by her boyfriend. She also paranoid about her ex . She now only just the neighbor, and want the neighbor to involve in the the family meeting that she requests. Call her outpatient provider Dr. Chris Maldonado at [phone] lvm with a call back. 08/16/25: Patient slept for 8 hours last night, was selective to what dose of medication she wants to take as she does not agree with the medication change yesterday. Do not want to take the Ativan. Discussed with patient regarding lithium. Patient do not want to start on lithium. Reports history of weight gain 40 lb, edema, fluid retention, and have some kidney issues. Patient admitted that it was helpful with her mood, she does not want to do with any side effects if we have to start it again. She also reports history of Depakote 25 years ago, but do not remember the side effects. She does not want to start on Depakote neither. Patient needle she with asking Seroquel to go down to 50 if we increase the Trileptal dose at bedtime. Advised patient continue with the same dose, with increase 900 of Trileptal at bedtime to see how she feels after tonight dose. We will not change/all lowered down on Seroquel. She also advised not to order anything to deliver to [facility]. She asked if she can order some art stuff , for people here and for herself to work on why she is here. She also reported that she have no close and have no bras, she had to wear three layers on the topx. When being told that she can not order stuff to delivered here, she states that another patient was allowed to order some clothes. She also pointed out does no written policy about it. Hyperverbal, tangential, but able to stay in topic during one-to-one assessment. She continued to have poor insight and poor judgment, do not believe she is manic, she rationale for or her hyperverbal and tangential is her normal this is not manic . Per nursing, patient does not like the way we using hyperverbal or tangential to prescribed her behavior. Some mild edema observed on bilateral ankles. We will continue to monitor. Continue with Trileptal current dose which was increased yesterday but she did not take new dose Agree to take it higher dose at night start tonight. Taper down on Lamictal- Per OP provider, patient would be manic on high dose. Continue with Seroquel 75mg at HS. Do not want to take [place] d/t side effects from past experience. Collateral: 08/16/25: Spoke with Dr. Chris Maldonado (outpatient provider Dr. Chris Maldonado at [phone]): Dr. Maldonado thinks we should limit her phone calls. Dr Maldonado stressed that patient should be on lithium, knowing some slightly elevated on TSH. He added, elevated we can start on thyroid medication to treat it. Dr. Maldonado said patient appeared to be more manic on higher dose of Lamictal which he was trying to take per it down. Dr. Maldonado was informed the current mental status of the patient, manic, hyperverbal, paranoid. 08/17: 3 day notice up 08/18/25; pt reports she is considering retracting 3 day notice tomorrow. Active on unit. Intrusive. Rapid speech. Rambling at times. Flight of ideas. Circumstantial. Perseverative regarding her ex- and ex-boyfriend. Presents with poor insight into behaviors prior to admission and while on the unit. She is requesting to have Seroquel decreased to 75mg d/t feeling over-sedated; Seroquel decreased to 75mg PO bedtime. Patient also requested to have Ativan discontinued d/t reporting she feels she does not need it ; DC Ativan. T/W continuously educated patient regarding mood stabilizers, dosages and possible side effects. Patient reports she knows that lithium worked best for her however, is concerned about gaining weight and other possible side effects. After further discussion, patient agreed to starting [place] 300mg PO BID. T/W obtained collateral from patient's ex-, Stephan Carroll, who reports he has known pt since they were 16 years old and is still in contact with pt. He reports patient has done best on lithium however does not like taking it due to weight gain. He reports concern due to patient calling her retail financial analyst while she is hospitalized, saying she would like to spend 1.7 million to trying purchase her ex-boyfriend's business . T/W also obtain collateral from patient's friend, Alexandro, who reports concerns regarding patient's safety due to patient inviting a woman she met a month ago at [facility] to come live with her along with her 2 kids . She reports security camera showing people leaving in and out of the home at different times of the day. Alexandro states she is worried patient will be taken advantage of due to being well to do . Patient's ex-boyfriend, Cal Wetzel, contacted T/W; Mr. Wetzel was informed there was not a release of information and T/W was not able to discuss patient's status or treatment plan. Mr. Wetzel stated he wanted to relay information regarding patient. He stated he moved out of the house today d/t patient threatening she will start a war and shantelle him . He is worried she is being scammed by the people who are moving in and out of her home. Mr. Wetzel reports, patient called the [employer]OVIE ST[employer]T PERFORM[employer] of his company and told them he is a serial killer and has been contacting his employees and stating the same . This short story writer called patient's outpatient psychiatrist, Dr. Maldonado; awaiting callback. 08/18: Patient continues to present similar to yesterday. intrusive in other pt's treatment. Talking over T/W during assessment and not allowing for back and forth conversation. Rapid speech. Rambling at times. Flight of ideas. Circumstantial. Perseverative regarding her ex- and ex-boyfriend. T/W met with pt to discuss treatment plan and if she would retract 3 day notice; pt declined and she was informed she would be filed on.Patient compliant with HS [place] dose, however continues to refuse AM dose despite education of importance regarding medication compliance. Per nursing notes, pt calling police department multiple times last evening; police asked nursing to have pt stop calling. pt slept 3.5 hours last night; encouraged to take Ativan PRN to help with sleep. Patient educated on: diagnosis and medication risk/benefits Reason for continued inpatient stay Substantial Risk for: med/psych decompensation Time Spent With Patient Time: Total time managing care of this patient today _30___ minutes.
[2025-08-18 19:19] VITALS: BP 162/89
[2025-08-18 19:55] VITALS: BP 132/89; PULSE 77; RESP 16; TEMP 36.7; O2SAT 96
[2025-08-19 04:20] VITALS: BP 137/81; PULSE 85; TEMP 37
[2025-08-19 05:45] VITALS: BP 160/70; PULSE 80
[2025-08-19 06:15] VITALS: BP 143/84; PULSE 76
[2025-08-19 09:30] VITALS: BP 126/62; PULSE 80; RESP 16; TEMP 36.8; O2SAT 98
--- NOTE | 2025-08-19 11:34 | HO.PSYCHPN ---
Subjective Subjective Date of Service: 08/19/25 Reason For Visit: Manic behavior - Decomp Subjective Notes: Section 7 Interim History: Placed on 1:1 d/t being intrusive with other patients; walking into other patients visits with family. Continues to talk over T/W. Rapid speech. Flight of ideas. Circumstantial. Observed placing all of her belongings and various items on her bedroom floor in a line around her room; multiple piles of items on her bed and in bags. Patient stated, I called the [employer]. I'm waiting for them to return my call. They are going to do a story and expose everyone in this hospital. I want all the footage. They said they are going to send an investigative team to talk to me. I know you and Lien care about me and get me. Thank you for giving me a body guard . Pt declined HS lithium last evening; encouraged to take [place] when prescribed. per nursing, slept 3.5 hours last night; woke up and began yelling at nursing staff; please see nursing notes. Patient notified of court hearing on 08/25/25. Medication Compliance: Intermittent Side effects from medications: No Attending Groups: Intermittent Mental Status Exam Mental Status Exam Narrative: Pt is alert and oriented; behavior is intrusive, talkative; dressed in casual attire, disheveled; mood is labile; eye contact appropriate; Speech is rapid rate, normal volume, rambling; circumstantial, perseverative, flight of ideas, grandiose; denies SI/HI/AH/VH. Diagnostics Vital Signs (24Hr): Vital Signs - 24 hr 08/18/25 19:19 08/18/25 19:55 08/19/25 04:20 Temperature 98.0 F 98.6 F Pulse Rate 77 85 Respiratory Rate 16 Blood Pressure 162/89 H 132/89 137/81 Pulse Oximetry 96 Oxygen Delivery Method Room Air 08/19/25 05:45 08/19/25 06:15 08/19/25 09:30 Temperature 98.2 F Pulse Rate 80 76 80 Respiratory Rate 16 Blood Pressure 160/70 H 143/84 H 126/62 Pulse Oximetry 98 Oxygen Delivery Method Room Air BMI result Body Mass Index 26.1 Labs 08/14/25 07:22 Medications Medications Current Medications Acetaminophen (Acetaminophen 325 Mg Tablet) 650 mg PO Q6H PRN PRN Reason: Headache/Pain, Scale 1-10 Last Admin: 08/19/25 09:43 Dose: 650 mg Al Hydroxide/Mg Hydroxide (Magnesium Hydrox/Alum Hydrox 30 Ml Oral.Susp) 30 ml PO Q6H PRN PRN Reason: Heartburn/Nausea Capsaicin (Capsaicin 0.025% Cream 60 Gm Tube) 1 appl TOPICAL TID PRN; Protocol PRN Reason: Pain, Mild (Pain Scale 1-3) Last Admin: 08/17/25 22:22 Dose: 1 appl Docusate Sodium (Docusate Sodium 100 Mg Capsule) 100 mg PO BID PRN PRN Reason: Constipation Last Admin: 08/17/25 22:23 Dose: 100 mg Hydroxyzine HCl (Hydroxyzine Hcl 25 Mg Tablet) 25 mg PO Q6H PRN PRN Reason: mild anxiety Last Admin: 08/18/25 01:05 Dose: 25 mg Lamotrigine (Lamotrigine 25 Mg Tablet) 50 mg PO DAILY [facility] Last Admin: 08/19/25 08:09 Dose: 50 mg [place] Carbonate ([place] Carbonate 300 Mg Capsule) 300 mg PO BID [facility] Last Admin: 08/19/25 08:51 Dose: Not Given Lorazepam (Lorazepam 1 Mg Tablet) 1 mg PO TID PRN PRN Reason: severe anxiety Magnesium Hydroxide (Milk Of Magnesia 30 Ml Oral.Susp) 30 ml PO DAILY PRN PRN Reason: Constipation Magnesium Oxide (Magnesium Oxide 400 Mg Tablet) 400 mg PO BEDTIME [facility] Last Admin: 08/18/25 22:45 Dose: 400 mg Melatonin (Melatonin 3 Mg Tablet) 6 mg PO BEDTIME [facility] Last Admin: 08/18/25 22:45 Dose: 6 mg Naproxen (Naproxen 500 Mg Tablet) 500 mg PO Q12H PRN PRN Reason: Pain, Moderate(Pain Scale 4-6) Last Admin: 08/18/25 13:41 Dose: 500 mg Olanzapine (Olanzapine 5 Mg Tablet) 5 mg PO Q4H PRN PRN Reason: agitation Oxcarbazepine (Oxcarbazepine 300 Mg Tablet) 900 mg PO BEDTIME [facility] Last Admin: 08/18/25 22:44 Dose: 900 mg Oxcarbazepine (Oxcarbazepine 300 Mg Tablet) 300 mg PO DAILY [facility] Last Admin: 08/19/25 08:09 Dose: 300 mg Quetiapine Fumarate (Quetiapine Fumarate 25 Mg Tablet) 12.5 mg PO BID PRN PRN Reason: agitation/severe anxiety Last Admin: 08/18/25 01:04 Dose: 12.5 mg Quetiapine Fumarate (Quetiapine Fumarate 25 Mg Tablet) 75 mg PO BEDTIME [facility] Last Admin: 08/18/25 22:44 Dose: 75 mg Allergies Allergies Allergy/AdvReac Type Severity Reaction Status Date / Time No Known Allergies Allergy Verified 08/09/25 21:18 Assessment & Plan Assessment & Plan (1) Bipolar disorder with severe krista: Status: Acute Code(s): F31.13 - Bipolar disorder, current episode manic without psychotic features, severe (2) PTSD (post-traumatic stress disorder): Status: Acute Code(s): F43.10 - Post-traumatic stress disorder, unspecified Plan Patient is a 59 y.o divorce Japanese speaking female with past medical and psychiatric history of bipolar, PTSD, arithritist, osteoporosis referred to [facility] from [facility] from ED. Patient presented to ED from home on 08/08/2025. She call 911 for wellness checks after and her best friend as her to get herself evaluated with concerns for her safety and mental status. Patient has been acting erratic, not sleeping, moving stuff around in her home 23/06, driving recklessly at high speed, texting threats to her partner, calling her partner's customers, and employees with threats. Formulation/clinical reasoning: ? If medication compliant, increase in manic behavior, paranoid/delusional. History of PTSD, bipolar. Was recently discharged at the beginning of the month from psychiatric hospital when she was not stable. Patient presented with manic behaviors that put herself at risk for safety. We will continue to monitor, medication adjustment, and provide therapeutic environment and groups for coping skills. We will refer patient back to outpatient psychiatric services and therapist for aftercare Plan: Patient on 15 minute checks for safety. Admitted to . [facility]. Signed another 3 day notice up on 08/18/25- Patient would be a good candidate for civil commitment. Work with treatment team to do collateral and FLU appointments for aftercare. Spoke with aPul- Son at [phone]. Will touch base with him again next day as d/t the bad/weak phone signal, not able to complete the update. Contact the hospitalist regarding hospitalist consultation on admission: seen by Hospitalist on 08/10/25. 08/10/25: Continue Lamictal 75 mg daily for mood. Trileptal 300 twice a day for mood. Seroquel 75 mg at bedtime for insomnia/mood 12.5 mg b.i.d. p.r.n. for agitation or severe anxiety. Perphenazine 2 mg p.r.n. at bedtime. Naproxen 500 b.i.d. p.r.n. arthritis. Trazodone as needed for insomnia. 08/11/25: Patient slept for 6 hours with restless sleep. Per nursing, patient appeared to be confused after taking trazodone. Patient give me the scenarios what was happening at night and she able to recall what she did during the night. She said is not confused, but she should take low dose of trazodone instead. Per record, she was given trazodone with the hydroxyzine and naproxen at around 01:26 in the morning. She remembers she was eating the cookie and milk and waking up crumbs and paper on her body. Advised patient not to combine them. Trazodone is now discontinued. We will revisit if patient needs it. Patient is tangential, very hyperverbal, sometimes not able to stay in the topic. Continue to perseveration on current boyfriend. She also would like to send her phone to the police where they can check the evidence of videos and screen shots as evidence for suspecting the boyfriend or some stranger being around in the house. She also asked what she should do, or should she file restraining order against her boyfriend. Some what her best friend told her that she may have psychosis break. Patient was advised to not making any big decision that could make her feel regret later on when she gets better as for now she is not stable enough. Patient also confused with the 3 day notice, to different staff to confirmed that she signed a 3 days on the day she came in which she did it with me yesterday. If she continues to improve, we will most likely to discharge on Friday. However, it is too early to decide if she is could be stable by that time. She is pleasant, anxious, but cooperative. Continue sharing a long story about her life. She verbally love this provider to call her son Paul at [phone] who called to the social work assistant left voice message saying that he is a healthcare proxy, and power of employment law attorney of his mom. Called Paul the above number, left voice message, with a number to call back. Waiting for response. Armen called back, was in the middle of conversation but was not having good signal. Therefore, will touch base with him another time. Per Armen, his mom basiclly comes to hospital and have episode once yearl. Regarding meds, Armen said it is in a black hole as no one is sure if his mom is compliant with meds or not. He also reports that the paranoid regarding his mom's boyfriend is not reality based. Update Paul with current manic behaviors and possible paranoid thoughts regarding her boyfriend but not about other stuff/other people. Discontinue Trazodone. Will revisit. Increase Lacmital up to 100mg daily in the morning. 08/12/25: Patient only slept 3-1/2 hours, medication compliant. However, per nursing and and other disciplines report, patient appeared to be more manic today. Not able to stay in a topic. Disorganized, but pleasant and cooperative. She appears to be very busy on the phone all day long today in between groups. Patient agrees if she is not getting better by Friday she can stay a little bit longer than Friday. Discussed with patient regarding medication plan. Patient does not agree with the Seroquel increased up to 100 tonight but agrees with adding melatonin and trazodone as needed-25 mg only p.r.n.. She agreed that by tomorrow if she is still not able to sleep, Seroquel up to 100 mg. Reports constipated, and agreed to take Colace twice a day. Appears to have increased appetite, appeared to be tired today, but not resting, racing thoughts, tried to organize the stuff at home from here via phone. Patient continued to believe that the medial she has is evidence of the boyfriend someone did something make her be in danger. Melatonin 6 mg scheduled at bed. Trazodone 25 mg p.r.n. for insomnia. Colace 100 b.i.d. for constipation 08/13/25: Sleep improved- slept for 6 hours last night. Compliant with meds, denies side effects. She loves Melatonin that started last night. Patient agrees to have Trileptal increased up to total of 900mg/daily in divided dose. Review possible side effects of hyponatremia. Check CMP to get another baseline. Hyperverbal pleasant, mild anxiety, more organized that yesterday but appears to restless, not resting, keep herself very busy all day to the point that she states she does not have time to shower today yet. Discuss with patient regarding manic behaviors. Patient does not think she is manic and says it is her baseline. Patient may retract 3 day for further treatment time and medication management. No SI/SIB/HI/AVH. Perseveration on unsafe behavior on boyfriend which could be from her paranoid. Other than that, patient has not made any paranoid/delusions Trileptal 300mg daily in the morning and increase HS dose to 600mg for mood. CMP for 08/14/25. 08/14/25: Patient slept for 7 hours, compliant with medications. No side effects noted, what her blood pressure elevated yesterday, worse even clonidine 0.2 with good effect. Nursing reported the patient called the police, police called to the nurse station to make sure we do not have her call again. Patient continued to have a verbal, tangential, appeared hoarding food. Anxious, keep busy all day long with activities, not rested. She does not want to retracted 3 day today, but will think about that in the morning. No safety concern expressed except for calling the police yesterday. She is visible and attended groups, pleasant to talk to. Sodium is within limit. slightly elevated on liver function. Low on protein. 08/15/25: Patient did not slept last night, only slept fully 45 minutes. She keeps herself busy all day long with lots of ideas, on the phone a lot, not resting, she hoarding food in her room. Hyper verbal, tangential which got worse. She make unreasonable decision, giving personal phone number of family to one of the patients to call, continued to paranoid regarding the boyfriend and exhusband. She became more argumentative, not usually normal pleasant her during one-to-one assessment. Poor insight and poor judgment- letting stranger in the house. continue to perceive that she is not manic, and stated that this is her normal. Per nursing, and social work assistant, patient got worse the past 2 days. She is not sleeping but do not appeared to be tired, increasing in irritable and anxiety mood. Discussed with patient regarding medication plan which patient does not agree with. She does not want any medication changes, in fact reports that Lamictal increased make her med more manic. She was inform the medication changes: Lamictal up to 150 mg, Trileptal up to total of 1200 mg in divided dose, Seroquel increased up to 100 mg at bedtime. Ativan 0.5 t.i.d., plus 1 mg t.i.d. p.r.n. for severe anxiety. Patient states that she will not take medication with those increase. Patient advised to take medication as recommended. She agreed to retracted 3 day, requests to see if she can be evaluated tonight to release/discharge. Informed that she will not be discharged today, she asked if she can retract insight another 3 day. This provider informed the patient that if she plans to sign another 3 day we may not let her retract but file on her instead. In the moment, she agrees that she will stay here to complete the treatment as long as needed. However, she signed the 3 day again in the afternoon, after this provider inform her about medication changes. She does not let this provider talked to her friend -Ravinder patient think Alexandro was affected by her boyfriend. She also paranoid about her ex . She now only just the neighbor, and want the neighbor to involve in the the family meeting that she requests. Call her outpatient provider Dr. Chris Maldonado at [phone]- lvm with a call back. 08/16/25: Patient slept for 8 hours last night, was selective to what dose of medication she wants to take as she does not agree with the medication change yesterday. Do not want to take the Ativan. Discussed with patient regarding lithium. Patient do not want to start on lithium. Reports history of weight gain 40 lb, edema, fluid retention, and have some kidney issues. Patient admitted that it was helpful with her mood, she does not want to do with any side effects if we have to start it again. She also reports history of Depakote 25 years ago, but do not remember the side effects. She does not want to start on Depakote neither. Patient needle she with asking Seroquel to go down to 50 if we increase the Trileptal dose at bedtime. Advised patient continue with the same dose, with increase 900 of Trileptal at bedtime to see how she feels after tonight dose. We will not change/all lowered down on Seroquel. She also advised not to order anything to deliver to [facility]. She asked if she can order some art stuff , for people here and for herself to work on why she is here. She also reported that she have no close and have no bras, she had to wear three layers on the topx. When being told that she can not order stuff to delivered here, she states that another patient was allowed to order some clothes. She also pointed out does no written policy about it. Hyperverbal, tangential, but able to stay in topic during one-to-one assessment. She continued to have poor insight and poor judgment, do not believe she is manic, she rationale for or her hyperverbal and tangential is her normal this is not manic . Per nursing, patient does not like the way we using hyperverbal or tangential to prescribed her behavior. Some mild edema observed on bilateral ankles. We will continue to monitor. Continue with Trileptal current dose which was increased yesterday but she did not take new dose Agree to take it higher dose at night start tonight. Taper down on Lamictal- Per OP provider, patient would be manic on high dose. Continue with Seroquel 75mg at HS. Do not want to take [place] d/t side effects from past experience. Collateral: 08/16/25: Spoke with Dr. Chris Maldonado (outpatient provider Dr. Chris Maldonado at [phone]): Dr. Maldonado thinks we should limit her phone calls. Dr Maldonado stressed that patient should be on lithium, knowing some slightly elevated on TSH. He added, elevated we can start on thyroid medication to treat it. Dr. Maldonado said patient appeared to be more manic on higher dose of Lamictal which he was trying to take per it down. Dr. Maldonado was informed the current mental status of the patient, manic, hyperverbal, paranoid. 08/17: 3 day notice up 08/18/25; pt reports she is considering retracting 3 day notice tomorrow. Active on unit. Intrusive. Rapid speech. Rambling at times. Flight of ideas. Circumstantial. Perseverative regarding her ex- and ex-boyfriend. Presents with poor insight into behaviors prior to admission and while on the unit. She is requesting to have Seroquel decreased to 75mg d/t feeling over-sedated; Seroquel decreased to 75mg PO bedtime. Patient also requested to have Ativan discontinued d/t reporting she feels she does not need it ; DC Ativan. T/W continuously educated patient regarding mood stabilizers, dosages and possible side effects. Patient reports she knows that lithium worked best for her however, is concerned about gaining weight and other possible side effects. After further discussion, patient agreed to starting [place] 300mg PO BID. T/W obtained collateral from patient's ex-, Stephan Carroll, who reports he has known pt since they were 16 years old and is still in contact with pt. He reports patient has done best on lithium however does not like taking it due to weight gain. He reports concern due to patient calling her personal financial counselor while she is hospitalized, saying she would like to spend 1.7 million to trying purchase her ex-boyfriend's business . T/W also obtain collateral from patient's friend, Alexandro, who reports concerns regarding patient's safety due to patient inviting a woman she met a month ago at [employer] to come live with her along with her 2 kids . She reports security camera showing people leaving in and out of the home at different times of the day. Alexandro states she is worried patient will be taken advantage of due to being well to do . Patient's ex-boyfriend, Cal Wetzel, contacted T/W; Mr. Wetzel was informed there was not a release of information and T/W was not able to discuss patient's status or treatment plan. Mr. Wetzel stated he wanted to relay information regarding patient. He stated he moved out of the house today d/t patient threatening she will start a war and shantelle him . He is worried she is being scammed by the people who are moving in and out of her home. Mr. Wetzel reports, patient called the ROADABILITY MACHINE OPERATOR of his company and told them he is a serial killer and has been contacting his employees and stating the same . This rfp writer called patient's outpatient psychiatrist, Dr. Maldonado; awaiting callback. 08/18: Patient continues to present similar to yesterday. intrusive in other pt's treatment. Talking over T/W during assessment and not allowing for back and forth conversation. Rapid speech. Rambling at times. Flight of ideas. Circumstantial. Perseverative regarding her ex- and ex-boyfriend. T/W met with pt to discuss treatment plan and if she would retract 3 day notice; pt declined and she was informed she would be filed on.Patient compliant with HS [place] dose, however continues to refuse AM dose despite education of importance regarding medication compliance. Per nursing notes, pt calling police department multiple times last evening; police asked nursing to have pt stop calling. pt slept 3.5 hours last night; encouraged to take Ativan PRN to help with sleep. 08/19: Placed on 1:1 d/t being intrusive with other patients; walking into other patients visits with family. Continues to talk over T/W. Rapid speech. Flight of ideas. Circumstantial. Observed placing all of her belongings and various items on her bedroom floor in a line around her room; multiple piles of items on her bed and in bags. Patient stated, I called the [employer]. I'm waiting for them to return my call. They are going to do a story and expose everyone in this hospital. I want all the footage. They said they are going to send an investigative team to talk to me. I know you and Lien care about me and get me. Thank you for giving me a body guard . Pt declined HS lithium last evening; encouraged to take [place] when prescribed. per nursing, slept 3.5 hours last night; woke up and began yelling at nursing staff; please see nursing notes. Patient notified of court hearing on 08/25/25. Patient educated on: diagnosis and medication risk/benefits Reason for continued inpatient stay Substantial Risk for: med/psych decompensation Time Spent With Patient Time: Total time managing care of this patient today _20___ minutes.
[2025-08-19 20:00] VITALS: BP 156/86; PULSE 78; RESP 18; TEMP 36.7; O2SAT 98
[2025-08-20 08:11] VITALS: BP 135/65; PULSE 62; RESP 18; TEMP 36.3; O2SAT 98
--- NOTE | 2025-08-20 10:08 | HO.PSYCHPN ---
Subjective Subjective Date of Service: 08/20/25 Reason For Visit: Manic behavior - Decomp Interim History: Placed on 1:1 d/t being intrusive with other patients; She remains manic, pressured, overinclusive, tangential. Believes she has a 1:1 to be protected from Joel (her ex BF). She is difficult to redirect and keep her thoughts organized. She said she took Li the night before last night and had bloating and I gained 9 lbs in 2 days . She refused Li last night. She believes the dose was increased to 600 mg but the dose was 300 mg. She was telling patients not to take medications and asking them to get legal representation and telling them to rearrange their food trays. She takes the Trileptal. Medication Compliance: No Review of Systems Review of Systems Constitutional: Denies fatigue and Denies fever(s) Cardiovascular: Denies chest pain and Denies dyspnea Respiratory: Denies dyspnea Gastrointestinal: Denies abdominal pain but constipated. Psychiatric: denies suicidal ideation Endocrine: Denies fatigue Edema on bilateral ankles Yes all other systems are reviewed and are negative Mental Status Exam Mental Status Exam Narrative: Pt is alert and oriented; behavior is intrusive, talkative; dressed in casual attire, disheveled; mood is labile; eye contact appropriate; Speech is rapid rate, normal volume, rambling; circumstantial, perseverative, flight of ideas, grandiose; denies SI/HI/AH/VH. Diagnostics Vital Signs (24Hr): Vital Signs - 24 hr 08/19/25 20:00 08/20/25 08:11 Temperature 98.1 F 97.4 F Pulse Rate 78 62 Respiratory Rate 18 18 Blood Pressure 156/86 H 135/65 Pulse Oximetry 98 98 Oxygen Delivery Method Room Air Room Air BMI result Body Mass Index 26.1 Labs 08/14/25 07:22 Medications Medications Current Medications Acetaminophen (Acetaminophen 325 Mg Tablet) 650 mg PO Q6H PRN PRN Reason: Headache/Pain, Scale 1-10 Last Admin: 08/19/25 18:59 Dose: 650 mg Al Hydroxide/Mg Hydroxide (Magnesium Hydrox/Alum Hydrox 30 Ml Oral.Susp) 30 ml PO Q6H PRN PRN Reason: Heartburn/Nausea Capsaicin (Capsaicin 0.025% Cream 60 Gm Tube) 1 appl TOPICAL TID PRN; Protocol PRN Reason: Pain, Mild (Pain Scale 1-3) Last Admin: 08/17/25 22:22 Dose: 1 appl Clonidine HCl (Clonidine Hcl 0.1 Mg Tablet) 0.1 mg PO Q4H PRN; Protocol PRN Reason: moderate anxiety/insomnia Last Admin: 08/19/25 20:36 Dose: 0.1 mg Docusate Sodium (Docusate Sodium 100 Mg Capsule) 100 mg PO BID PRN PRN Reason: Constipation Last Admin: 08/17/25 22:23 Dose: 100 mg Hydroxyzine HCl (Hydroxyzine Hcl 25 Mg Tablet) 25 mg PO Q6H PRN PRN Reason: mild anxiety Last Admin: 08/18/25 01:05 Dose: 25 mg Lamotrigine (Lamotrigine 25 Mg Tablet) 50 mg PO DAILY [facility] Last Admin: 08/20/25 08:44 Dose: 50 mg [place] I Carbonate ([place] I Carbonate 300 Mg Capsule) 300 mg PO BID [facility] Last Admin: 08/20/25 08:44 Dose: Not Given Lorazepam (Lorazepam 1 Mg Tablet) 1 mg PO TID PRN PRN Reason: severe anxiety Last Admin: 08/19/25 18:59 Dose: 1 mg Magnesium Hydroxide (Milk Of Magnesia 30 Ml Oral.Susp) 30 ml PO DAILY PRN PRN Reason: Constipation Magnesium Oxide (Magnesium Oxide 400 Mg Tablet) 400 mg PO BEDTIME [facility] Last Admin: 08/19/25 20:37 Dose: 400 mg Melatonin (Melatonin 3 Mg Tablet) 6 mg PO BEDTIME [facility] Last Admin: 08/19/25 20:37 Dose: 6 mg Naproxen (Naproxen 500 Mg Tablet) 500 mg PO Q12H PRN PRN Reason: Pain, Moderate(Pain Scale 4-6) Last Admin: 08/18/25 13:41 Dose: 500 mg Olanzapine (Olanzapine 5 Mg Tablet) 5 mg PO Q4H PRN PRN Reason: agitation Oxcarbazepine (Oxcarbazepine 300 Mg Tablet) 900 mg PO BEDTIME [facility] Last Admin: 08/19/25 20:37 Dose: 900 mg Oxcarbazepine (Oxcarbazepine 300 Mg Tablet) 300 mg PO DAILY [facility] Last Admin: 08/20/25 08:44 Dose: 300 mg Quetiapine Fumarate (Quetiapine Fumarate 25 Mg Tablet) 12.5 mg PO BID PRN PRN Reason: agitation/severe anxiety Last Admin: 08/18/25 01:04 Dose: 12.5 mg Quetiapine Fumarate (Quetiapine Fumarate 25 Mg Tablet) 75 mg PO BEDTIME [facility] Last Admin: 08/19/25 20:36 Dose: 75 mg Allergies Allergies Allergy/AdvReac Type Severity Reaction Status Date / Time No Known Allergies Allergy Verified 08/09/25 21:18 Assessment & Plan Assessment & Plan (1) Bipolar disorder with severe krista: Status: Acute Code(s): F31.13 - Bipolar disorder, current episode manic without psychotic features, severe (2) PTSD (post-traumatic stress disorder): Status: Acute Code(s): F43.10 - Post-traumatic stress disorder, unspecified Plan Patient is a 59 y.o divorce [place]an speaking female with past medical and psychiatric history of bipolar, PTSD, arithritist, osteoporosis referred to [facility] from [facility] from ED. Patient presented to ED from home on 08/08/2025. She call 911 for wellness checks after and her best friend as her to get herself evaluated with concerns for her safety and mental status. Patient has been acting erratic, not sleeping, moving stuff around in her home 23/06, driving recklessly at high speed, texting threats to her partner, calling her partner's customers, and employees with threats. Formulation/clinical reasoning: ? If medication compliant, increase in manic behavior, paranoid/delusional. History of PTSD, bipolar. Was recently discharged at the beginning of the month from psychiatric hospital when she was not stable. Patient presented with manic behaviors that put herself at risk for safety. We will continue to monitor, medication adjustment, and provide therapeutic environment and groups for coping skills. We will refer patient back to outpatient psychiatric services and therapist for aftercare Plan: Patient on 15 minute checks for safety. Admitted to [facility]. [facility]. Signed another 3 day notice up on 08/18/25- Patient would be a good candidate for civil commitment. Work with treatment team to do collateral and FLU appointments for aftercare. Spoke with Paul- Son at [phone]. Will touch base with him again next day as d/t the bad/weak phone signal, not able to complete the update. Contact the hospitalist regarding hospitalist consultation on admission: seen by Hospitalist on 08/10/25. 08/10/25: Continue Lamictal 75 mg daily for mood. Trileptal 300 twice a day for mood. Seroquel 75 mg at bedtime for insomnia/mood 12.5 mg b.i.d. p.r.n. for agitation or severe anxiety. Perphenazine 2 mg p.r.n. at bedtime. Naproxen 500 b.i.d. p.r.n. arthritis. Trazodone as needed for insomnia. 08/11/25: Patient slept for 6 hours with restless sleep. Per nursing, patient appeared to be confused after taking trazodone. Patient give me the scenarios what was happening at night and she able to recall what she did during the night. She said is not confused, but she should take low dose of trazodone instead. Per record, she was given trazodone with the hydroxyzine and naproxen at around 01:26 in the morning. She remembers she was eating the cookie and milk and waking up crumbs and paper on her body. Advised patient not to combine them. Trazodone is now discontinued. We will revisit if patient needs it. Patient is tangential, very hyperverbal, sometimes not able to stay in the topic. Continue to perseveration on current boyfriend. She also would like to send her phone to the police where they can check the evidence of videos and screen shots as evidence for suspecting the boyfriend or some stranger being around in the house. She also asked what she should do, or should she file restraining order against her boyfriend. Some what her best friend told her that she may have psychosis break. Patient was advised to not making any big decision that could make her feel regret later on when she gets better as for now she is not stable enough. Patient also confused with the 3 day notice, to different staff to confirmed that she signed a 3 days on the day she came in which she did it with me yesterday. If she continues to improve, we will most likely to discharge on Friday. However, it is too early to decide if she is could be stable by that time. She is pleasant, anxious, but cooperative. Continue sharing a long story about her life. She verbally love this provider to call her son Paul at [phone] who called to the older adult social work specialist left voice message saying that he is a healthcare proxy, and power of real estate associate attorney of his mom. Called Paul the above number, left voice message, with a number to call back. Waiting for response. Armen called back, was in the middle of conversation but was not having good signal. Therefore, will touch base with him another time. Per Armen, his mom basiclly comes to hospital and have episode once yearl. Regarding meds, Armen said it is in a black hole as no one is sure if his mom is compliant with meds or not. He also reports that the paranoid regarding his mom's boyfriend is not reality based. Update Paul with current manic behaviors and possible paranoid thoughts regarding her boyfriend but not about other stuff/other people. Discontinue Trazodone. Will revisit. Increase Lacmital up to 100mg daily in the morning. 08/12/25: Patient only slept 3-1/2 hours, medication compliant. However, per nursing and and other disciplines report, patient appeared to be more manic today. Not able to stay in a topic. Disorganized, but pleasant and cooperative. She appears to be very busy on the phone all day long today in between groups. Patient agrees if she is not getting better by Friday she can stay a little bit longer than Friday. Discussed with patient regarding medication plan. Patient does not agree with the Seroquel increased up to 100 tonight but agrees with adding melatonin and trazodone as needed-25 mg only p.r.n.. She agreed that by tomorrow if she is still not able to sleep, Seroquel up to 100 mg. Reports constipated, and agreed to take Colace twice a day. Appears to have increased appetite, appeared to be tired today, but not resting, racing thoughts, tried to organize the stuff at home from here via phone. Patient continued to believe that the medial she has is evidence of the boyfriend someone did something make her be in danger. Melatonin 6 mg scheduled at bed. Trazodone 25 mg p.r.n. for insomnia. Colace 100 b.i.d. for constipation 08/13/25: Sleep improved- slept for 6 hours last night. Compliant with meds, denies side effects. She loves Melatonin that started last night. Patient agrees to have Trileptal increased up to total of 900mg/daily in divided dose. Review possible side effects of hyponatremia. Check CMP to get another baseline. Hyperverbal pleasant, mild anxiety, more organized that yesterday but appears to restless, not resting, keep herself very busy all day to the point that she states she does not have time to shower today yet. Discuss with patient regarding manic behaviors. Patient does not think she is manic and says it is her baseline. Patient may retract 3 day for further treatment time and medication management. No SI/SIB/HI/AVH. Perseveration on unsafe behavior on boyfriend which could be from her paranoid. Other than that, patient has not made any paranoid/delusions Trileptal 300mg daily in the morning and increase HS dose to 600mg for mood. CMP for 08/14/25. 08/14/25: Patient slept for 7 hours, compliant with medications. No side effects noted, what her blood pressure elevated yesterday, worse even clonidine 0.2 with good effect. Nursing reported the patient called the police, police called to the nurse station to make sure we do not have her call again. Patient continued to have a verbal, tangential, appeared hoarding food. Anxious, keep busy all day long with activities, not rested. She does not want to retracted 3 day today, but will think about that in the morning. No safety concern expressed except for calling the police yesterday. She is visible and attended groups, pleasant to talk to. Sodium is within limit. slightly elevated on liver function. Low on protein. 08/15/25: Patient did not slept last night, only slept fully 45 minutes. She keeps herself busy all day long with lots of ideas, on the phone a lot, not resting, she hoarding food in her room. Hyper verbal, tangential which got worse. She make unreasonable decision, giving personal phone number of family to one of the patients to call, continued to paranoid regarding the boyfriend and exhusband. She became more argumentative, not usually normal pleasant her during one-to-one assessment. Poor insight and poor judgment- letting stranger in the house. continue to perceive that she is not manic, and stated that this is her normal. Per nursing, and older adult social work specialist, patient got worse the past 2 days. She is not sleeping but do not appeared to be tired, increasing in irritable and anxiety mood. Discussed with patient regarding medication plan which patient does not agree with. She does not want any medication changes, in fact reports that Lamictal increased make her med more manic. She was inform the medication changes: Lamictal up to 150 mg, Trileptal up to total of 1200 mg in divided dose, Seroquel increased up to 100 mg at bedtime. Ativan 0.5 t.i.d., plus 1 mg t.i.d. p.r.n. for severe anxiety. Patient states that she will not take medication with those increase. Patient advised to take medication as recommended. She agreed to retracted 3 day, requests to see if she can be evaluated tonight to release/discharge. Informed that she will not be discharged today, she asked if she can retract insight another 3 day. This provider informed the patient that if she plans to sign another 3 day we may not let her retract but file on her instead. In the moment, she agrees that she will stay here to complete the treatment as long as needed. However, she signed the 3 day again in the afternoon, after this provider inform her about medication changes. She does not let this provider talked to her friend -Ravinder patient think Alexandro was affected by her boyfriend. She also paranoid about her ex . She now only just the neighbor, and want the neighbor to involve in the the family meeting that she requests. Call her outpatient provider Dr. Chris Maldonado at [phone] lvm with a call back. 08/16/25: Patient slept for 8 hours last night, was selective to what dose of medication she wants to take as she does not agree with the medication change yesterday. Do not want to take the Ativan. Discussed with patient regarding lithium. Patient do not want to start on lithium. Reports history of weight gain 40 lb, edema, fluid retention, and have some kidney issues. Patient admitted that it was helpful with her mood, she does not want to do with any side effects if we have to start it again. She also reports history of Depakote 25 years ago, but do not remember the side effects. She does not want to start on Depakote neither. Patient needle she with asking Seroquel to go down to 50 if we increase the Trileptal dose at bedtime. Advised patient continue with the same dose, with increase 900 of Trileptal at bedtime to see how she feels after tonight dose. We will not change/all lowered down on Seroquel. She also advised not to order anything to deliver to [facility]. She asked if she can order some art stuff , for people here and for herself to work on why she is here. She also reported that she have no close and have no bras, she had to wear three layers on the topx. When being told that she can not order stuff to delivered here, she states that another patient was allowed to order some clothes. She also pointed out does no written policy about it. Hyperverbal, tangential, but able to stay in topic during one-to-one assessment. She continued to have poor insight and poor judgment, do not believe she is manic, she rationale for or her hyperverbal and tangential is her normal this is not manic . Per nursing, patient does not like the way we using hyperverbal or tangential to prescribed her behavior. Some mild edema observed on bilateral ankles. We will continue to monitor. Continue with Trileptal current dose which was increased yesterday but she did not take new dose Agree to take it higher dose at night start tonight. Taper down on Lamictal- Per OP provider, patient would be manic on high dose. Continue with Seroquel 75mg at HS. Do not want to take Villa [place] I d/t side effects from past experience. Collateral: 08/16/25: Spoke with Dr. Chris Maldonado (outpatient provider Dr. Chris Maldonado at [phone]): Dr. Maldonado thinks we should limit her phone calls. Dr Maldonado stressed that patient should be on lithium, knowing some slightly elevated on TSH. He added, elevated we can start on thyroid medication to treat it. Dr. Maldonado said patient appeared to be more manic on higher dose of Lamictal which he was trying to take per it down. Dr. Maldonado was informed the current mental status of the patient, manic, hyperverbal, paranoid. 08/17: 3 day notice up 08/18/25; pt reports she is considering retracting 3 day notice tomorrow. Active on unit. Intrusive. Rapid speech. Rambling at times. Flight of ideas. Circumstantial. Perseverative regarding her ex- and ex-boyfriend. Presents with poor insight into behaviors prior to admission and while on the unit. She is requesting to have Seroquel decreased to 75mg d/t feeling over-sedated; Seroquel decreased to 75mg PO bedtime. Patient also requested to have Ativan discontinued d/t reporting she feels she does not need it ; DC Ativan. T/W continuously educated patient regarding mood stabilizers, dosages and possible side effects. Patient reports she knows that lithium worked best for her however, is concerned about gaining weight and other possible side effects. After further discussion, patient agreed to starting Villa Hugo I 300mg PO BID. T/W obtained collateral from patient's ex-, Stephan Carroll, who reports he has known pt since they were 16 years old and is still in contact with pt. He reports patient has done best on lithium however does not like taking it due to weight gain. He reports concern due to patient calling her financial analysis manager while she is hospitalized, saying she would like to spend 1.7 million to trying purchase her ex-boyfriend's business . T/W also obtain collateral from patient's friend, Alexandro, who reports concerns regarding patient's safety due to patient inviting a woman she met a month ago at [employer] to come live with her along with her 2 kids . She reports security camera showing people leaving in and out of the home at different times of the day. Alexandro states she is worried patient will be taken advantage of due to being well to do . Patient's ex-boyfriend, Cal Wetzel, contacted T/W; Mr. Wetzel was informed there was not a release of information and T/W was not able to discuss patient's status or treatment plan. Mr. Wetzel stated he wanted to relay information regarding patient. He stated he moved out of the house today d/t patient threatening she will start a war and shantelle him . He is worried she is being scammed by the people who are moving in and out of her home. Mr. Wetzel reports, patient called the NETWORK INTELLIGENCE ANALYST of his company and told them he is a serial killer and has been contacting his employees and stating the same . This curriculum writer called patient's outpatient psychiatrist, Dr. Maldonado; awaiting callback. 08/18: Patient continues to present similar to yesterday. intrusive in other pt's treatment. Talking over T/W during assessment and not allowing for back and forth conversation. Rapid speech. Rambling at times. Flight of ideas. Circumstantial. Perseverative regarding her ex- and ex-boyfriend. T/W met with pt to discuss treatment plan and if she would retract 3 day notice; pt declined and she was informed she would be filed on.Patient compliant with HS Villa Hugo I dose, however continues to refuse AM dose despite education of importance regarding medication compliance. Per nursing notes, pt calling police department multiple times last evening; police asked nursing to have pt stop calling. pt slept 3.5 hours last night; encouraged to take Ativan PRN to help with sleep. 08/19: Placed on 1:1 d/t being intrusive with other patients; walking into other patients visits with family. Continues to talk over T/W. Rapid speech. Flight of ideas. Circumstantial. Observed placing all of her belongings and various items on her bedroom floor in a line around her room; multiple piles of items on her bed and in bags. Patient stated, I called the [employer]. I'm waiting for them to return my call. They are going to do a story and expose everyone in this hospital. I want all the footage. They said they are going to send an investigative team to talk to me. I know you and Lien care about me and get me. Thank you for giving me a body guard . Pt declined HS lithium last evening; encouraged to take Villa Hugo I when prescribed. per nursing, slept 3.5 hours last night; woke up and began yelling at nursing staff; please see nursing notes. Patient notified of court hearing on 08/25/25. 08/20: Continue current management and treatment plan. Encourage adherence. Reason for continued inpatient stay Substantial Risk for: harm to self, inability to function and rapid decompensation Time Spent With Patient Time: Total time managing care of this patient today ____ minutes.
[2025-08-20 20:00] VITALS: BP 126/60; PULSE 67; RESP 16; TEMP 37.1; O2SAT 97
--- NOTE | 2025-08-20 22:20 | PC.NURSE ---
Pt refused HS Trileptal 900mg at bedtime. She states I will let the doctor that 900mg is too much for me .
[2025-08-21 07:05] VITALS: BP 117/74; PULSE 82; RESP 14; TEMP 36.3; O2SAT 98
--- NOTE | 2025-08-21 12:07 | HO.PSYCHPN ---
Subjective Subjective Date of Service: 08/21/25 Reason For Visit: Manic behavior - Decomp Interim History: Placed on 1:1. Patient refused Trileptal 900 mg HS last night but took Kihei 300 mg. She only agrees to 300 mg of Li. I need baby doses of Kihei. She wants to DC Trileptal. Recommended against and at least taking 300 mg BID. Patient remains pressured, overinclusive, verbose. She says she slept well last night. 7 hours. Denies hallucinations. She believes there is a man out in the community that she is in danger from. Also that her ex is telling her children not to talk to her or answer their messages. Review of Systems Review of Systems Constitutional: Denies fatigue and Denies fever(s) Cardiovascular: Denies chest pain and Denies dyspnea Respiratory: Denies dyspnea Gastrointestinal: Denies abdominal pain but constipated. Psychiatric: denies suicidal ideation Endocrine: Denies fatigue Edema on bilateral ankles Yes all other systems are reviewed and are negative Mental Status Exam Mental Status Exam Narrative: Pt is alert and oriented; behavior is intrusive, talkative; dressed in casual attire, disheveled; mood is labile; eye contact appropriate; Speech is rapid rate, normal volume, rambling; circumstantial, perseverative, flight of ideas, grandiose; denies SI/HI/AH/VH. Speech Pattern: Perseverating, Excessive and Pressured Thought Content: positive for Circumstantial Diagnostics Vital Signs (24Hr): Vital Signs - 24 hr 08/20/25 20:00 08/21/25 07:05 Temperature 98.7 F 97.4 F Pulse Rate 67 82 Respiratory Rate 16 14 Blood Pressure 126/60 117/74 Pulse Oximetry 97 98 Oxygen Delivery Method Room Air Room Air BMI result Body Mass Index 26.1 Labs 08/14/25 07:22 Medications Medications Current Medications Acetaminophen (Acetaminophen 325 Mg Tablet) 650 mg PO Q6H PRN PRN Reason: Headache/Pain, Scale 1-10 Last Admin: 08/19/25 18:59 Dose: 650 mg Al Hydroxide/Mg Hydroxide (Magnesium Hydrox/Alum Hydrox 30 Ml Oral.Susp) 30 ml PO Q6H PRN PRN Reason: Heartburn/Nausea Capsaicin (Capsaicin 0.025% Cream 60 Gm Tube) 1 appl TOPICAL TID PRN; Protocol PRN Reason: Pain, Mild (Pain Scale 1-3) Last Admin: 08/17/25 22:22 Dose: 1 appl Clonidine HCl (Clonidine Hcl 0.1 Mg Tablet) 0.1 mg PO Q4H PRN; Protocol PRN Reason: moderate anxiety/insomnia Last Admin: 08/19/25 20:36 Dose: 0.1 mg Docusate Sodium (Docusate Sodium 100 Mg Capsule) 100 mg PO BID PRN PRN Reason: Constipation Last Admin: 08/17/25 22:23 Dose: 100 mg Hydroxyzine HCl (Hydroxyzine Hcl 25 Mg Tablet) 25 mg PO Q6H PRN PRN Reason: mild anxiety Last Admin: 08/18/25 01:05 Dose: 25 mg Lamotrigine (Lamotrigine 25 Mg Tablet) 50 mg PO DAILY [facility] Last Admin: 08/21/25 09:19 Dose: 50 mg Kihei Carbonate (Kihei Carbonate 300 Mg Capsule) 300 mg PO BID [facility] Last Admin: 08/21/25 09:19 Dose: 300 mg Lorazepam (Lorazepam 1 Mg Tablet) 1 mg PO TID PRN PRN Reason: severe anxiety Last Admin: 08/21/25 03:50 Dose: 1 mg Magnesium Hydroxide (Milk Of Magnesia 30 Ml Oral.Susp) 30 ml PO DAILY PRN PRN Reason: Constipation Magnesium Oxide (Magnesium Oxide 400 Mg Tablet) 400 mg PO BEDTIME [facility] Last Admin: 08/20/25 22:08 Dose: 400 mg Melatonin (Melatonin 3 Mg Tablet) 6 mg PO BEDTIME [facility] Last Admin: 08/20/25 22:09 Dose: 6 mg Naproxen (Naproxen 500 Mg Tablet) 500 mg PO Q12H PRN PRN Reason: Pain, Moderate(Pain Scale 4-6) Last Admin: 08/20/25 22:23 Dose: 500 mg Olanzapine (Olanzapine 5 Mg Tablet) 5 mg PO Q4H PRN PRN Reason: agitation Oxcarbazepine (Oxcarbazepine 300 Mg Tablet) 900 mg PO BEDTIME [facility] Last Admin: 08/20/25 22:19 Dose: Not Given Oxcarbazepine (Oxcarbazepine 300 Mg Tablet) 300 mg PO DAILY [facility] Last Admin: 08/21/25 09:19 Dose: 300 mg Quetiapine Fumarate (Quetiapine Fumarate 25 Mg Tablet) 12.5 mg PO BID PRN PRN Reason: agitation/severe anxiety Last Admin: 08/21/25 04:14 Dose: 12.5 mg Quetiapine Fumarate (Quetiapine Fumarate 25 Mg Tablet) 75 mg PO BEDTIME [facility] Last Admin: 08/20/25 23:31 Dose: 75 mg Allergies Allergies Allergy/AdvReac Type Severity Reaction Status Date / Time No Known Allergies Allergy Verified 08/09/25 21:18 Assessment & Plan Assessment & Plan (1) Bipolar disorder with severe krista: Status: Acute Code(s): F31.13 - Bipolar disorder, current episode manic without psychotic features, severe (2) PTSD (post-traumatic stress disorder): Status: Acute Code(s): F43.10 - Post-traumatic stress disorder, unspecified Plan Patient is a 59 y.o divorce Kyrgyz speaking female with past medical and psychiatric history of bipolar, PTSD, arithritist, osteoporosis referred to [facility] from [facility] from ED. Patient presented to ED from home on 08/08/2025. She call 911 for wellness checks after and her best friend as her to get herself evaluated with concerns for her safety and mental status. Patient has been acting erratic, not sleeping, moving stuff around in her home 23/06, driving recklessly at high speed, texting threats to her partner, calling her partner's customers, and employees with threats. Formulation/clinical reasoning: ? If medication compliant, increase in manic behavior, paranoid/delusional. History of PTSD, bipolar. Was recently discharged at the beginning of the month from psychiatric hospital when she was not stable. Patient presented with manic behaviors that put herself at risk for safety. We will continue to monitor, medication adjustment, and provide therapeutic environment and groups for coping skills. We will refer patient back to outpatient psychiatric services and therapist for aftercare Plan: Patient on 15 minute checks for safety. Admitted to . [facility]. Signed another 3 day notice up on 08/18/25- Patient would be a good candidate for civil commitment. Work with treatment team to do collateral and FLU appointments for aftercare. Spoke with Paul- Son at [phone]. Will touch base with him again next day as d/t the bad/weak phone signal, not able to complete the update. Contact the hospitalist regarding hospitalist consultation on admission: seen by Hospitalist on 08/10/25. 08/10/25: Continue Lamictal 75 mg daily for mood. Trileptal 300 twice a day for mood. Seroquel 75 mg at bedtime for insomnia/mood 12.5 mg b.i.d. p.r.n. for agitation or severe anxiety. Perphenazine 2 mg p.r.n. at bedtime. Naproxen 500 b.i.d. p.r.n. arthritis. Trazodone as needed for insomnia. 08/11/25: Patient slept for 6 hours with restless sleep. Per nursing, patient appeared to be confused after taking trazodone. Patient give me the scenarios what was happening at night and she able to recall what she did during the night. She said is not confused, but she should take low dose of trazodone instead. Per record, she was given trazodone with the hydroxyzine and naproxen at around 01:26 in the morning. She remembers she was eating the cookie and milk and waking up crumbs and paper on her body. Advised patient not to combine them. Trazodone is now discontinued. We will revisit if patient needs it. Patient is tangential, very hyperverbal, sometimes not able to stay in the topic. Continue to perseveration on current boyfriend. She also would like to send her phone to the police where they can check the evidence of videos and screen shots as evidence for suspecting the boyfriend or some stranger being around in the house. She also asked what she should do, or should she file restraining order against her boyfriend. Some what her best friend told her that she may have psychosis break. Patient was advised to not making any big decision that could make her feel regret later on when she gets better as for now she is not stable enough. Patient also confused with the 3 day notice, to different staff to confirmed that she signed a 3 days on the day she came in which she did it with me yesterday. If she continues to improve, we will most likely to discharge on Friday. However, it is too early to decide if she is could be stable by that time. She is pleasant, anxious, but cooperative. Continue sharing a long story about her life. She verbally love this provider to call her son Paul at [phone] who called to the foster care social worker left voice message saying that he is a healthcare proxy, and power of deputy county attorney of his mom. Called Paul the above number, left voice message, with a number to call back. Waiting for response. Armen called back, was in the middle of conversation but was not having good signal. Therefore, will touch base with him another time. Per Armen, his mom basiclly comes to hospital and have episode once yearl. Regarding meds, Armen said it is in a black hole as no one is sure if his mom is compliant with meds or not. He also reports that the paranoid regarding his mom's boyfriend is not reality based. Update Paul with current manic behaviors and possible paranoid thoughts regarding her boyfriend but not about other stuff/other people. Discontinue Trazodone. Will revisit. Increase Lacmital up to 100mg daily in the morning. 08/12/25: Patient only slept 3-1/2 hours, medication compliant. However, per nursing and and other disciplines report, patient appeared to be more manic today. Not able to stay in a topic. Disorganized, but pleasant and cooperative. She appears to be very busy on the phone all day long today in between groups. Patient agrees if she is not getting better by Friday she can stay a little bit longer than Friday. Discussed with patient regarding medication plan. Patient does not agree with the Seroquel increased up to 100 tonight but agrees with adding melatonin and trazodone as needed-25 mg only p.r.n.. She agreed that by tomorrow if she is still not able to sleep, Seroquel up to 100 mg. Reports constipated, and agreed to take Colace twice a day. Appears to have increased appetite, appeared to be tired today, but not resting, racing thoughts, tried to organize the stuff at home from here via phone. Patient continued to believe that the medial she has is evidence of the boyfriend someone did something make her be in danger. Melatonin 6 mg scheduled at bed. Trazodone 25 mg p.r.n. for insomnia. Colace 100 b.i.d. for constipation 08/13/25: Sleep improved- slept for 6 hours last night. Compliant with meds, denies side effects. She loves Melatonin that started last night. Patient agrees to have Trileptal increased up to total of 900mg/daily in divided dose. Review possible side effects of hyponatremia. Check CMP to get another baseline. Hyperverbal pleasant, mild anxiety, more organized that yesterday but appears to restless, not resting, keep herself very busy all day to the point that she states she does not have time to shower today yet. Discuss with patient regarding manic behaviors. Patient does not think she is manic and says it is her baseline. Patient may retract 3 day for further treatment time and medication management. No SI/SIB/HI/AVH. Perseveration on unsafe behavior on boyfriend which could be from her paranoid. Other than that, patient has not made any paranoid/delusions Trileptal 300mg daily in the morning and increase HS dose to 600mg for mood. CMP for 08/14/25. 08/14/25: Patient slept for 7 hours, compliant with medications. No side effects noted, what her blood pressure elevated yesterday, worse even clonidine 0.2 with good effect. Nursing reported the patient called the police, police called to the nurse station to make sure we do not have her call again. Patient continued to have a verbal, tangential, appeared hoarding food. Anxious, keep busy all day long with activities, not rested. She does not want to retracted 3 day today, but will think about that in the morning. No safety concern expressed except for calling the police yesterday. She is visible and attended groups, pleasant to talk to. Sodium is within limit. slightly elevated on liver function. Low on protein. 08/15/25: Patient did not slept last night, only slept fully 45 minutes. She keeps herself busy all day long with lots of ideas, on the phone a lot, not resting, she hoarding food in her room. Hyper verbal, tangential which got worse. She make unreasonable decision, giving personal phone number of family to one of the patients to call, continued to paranoid regarding the boyfriend and exhusband. She became more argumentative, not usually normal pleasant her during one-to-one assessment. Poor insight and poor judgment- letting stranger in the house. continue to perceive that she is not manic, and stated that this is her normal. Per nursing, and foster care social worker, patient got worse the past 2 days. She is not sleeping but do not appeared to be tired, increasing in irritable and anxiety mood. Discussed with patient regarding medication plan which patient does not agree with. She does not want any medication changes, in fact reports that Lamictal increased make her med more manic. She was inform the medication changes: Lamictal up to 150 mg, Trileptal up to total of 1200 mg in divided dose, Seroquel increased up to 100 mg at bedtime. Ativan 0.5 t.i.d., plus 1 mg t.i.d. p.r.n. for severe anxiety. Patient states that she will not take medication with those increase. Patient advised to take medication as recommended. She agreed to retracted 3 day, requests to see if she can be evaluated tonight to release/discharge. Informed that she will not be discharged today, she asked if she can retract insight another 3 day. This provider informed the patient that if she plans to sign another 3 day we may not let her retract but file on her instead. In the moment, she agrees that she will stay here to complete the treatment as long as needed. However, she signed the 3 day again in the afternoon, after this provider inform her about medication changes. She does not let this provider talked to her friend -Ravinder patient think Alexandro was affected by her boyfriend. She also paranoid about her ex . She now only just the neighbor, and want the neighbor to involve in the the family meeting that she requests. Call her outpatient provider Dr. Chris Maldonado at [phone] lvm with a call back. 08/16/25: Patient slept for 8 hours last night, was selective to what dose of medication she wants to take as she does not agree with the medication change yesterday. Do not want to take the Ativan. Discussed with patient regarding lithium. Patient do not want to start on lithium. Reports history of weight gain 40 lb, edema, fluid retention, and have some kidney issues. Patient admitted that it was helpful with her mood, she does not want to do with any side effects if we have to start it again. She also reports history of Depakote 25 years ago, but do not remember the side effects. She does not want to start on Depakote neither. Patient needle she with asking Seroquel to go down to 50 if we increase the Trileptal dose at bedtime. Advised patient continue with the same dose, with increase 900 of Trileptal at bedtime to see how she feels after tonight dose. We will not change/all lowered down on Seroquel. She also advised not to order anything to deliver to [facility]. She asked if she can order some art stuff , for people here and for herself to work on why she is here. She also reported that she have no close and have no bras, she had to wear three layers on the topx. When being told that she can not order stuff to delivered here, she states that another patient was allowed to order some clothes. She also pointed out does no written policy about it. Hyperverbal, tangential, but able to stay in topic during one-to-one assessment. She continued to have poor insight and poor judgment, do not believe she is manic, she rationale for or her hyperverbal and tangential is her normal this is not manic . Per nursing, patient does not like the way we using hyperverbal or tangential to prescribed her behavior. Some mild edema observed on bilateral ankles. We will continue to monitor. Continue with Trileptal current dose which was increased yesterday but she did not take new dose Agree to take it higher dose at night start tonight. Taper down on Lamictal- Per OP provider, patient would be manic on high dose. Continue with Seroquel 75mg at HS. Do not want to take Kihei d/t side effects from past experience. Collateral: 08/16/25: Spoke with Dr. Chris Maldonado (outpatient provider Dr. Chris Maldonado at [phone]): Dr. Maldonado thinks we should limit her phone calls. Dr Maldonado stressed that patient should be on lithium, knowing some slightly elevated on TSH. He added, elevated we can start on thyroid medication to treat it. Dr. Maldonado said patient appeared to be more manic on higher dose of Lamictal which he was trying to take per it down. Dr. Maldonado was informed the current mental status of the patient, manic, hyperverbal, paranoid. 08/17: 3 day notice up 08/18/25; pt reports she is considering retracting 3 day notice tomorrow. Active on unit. Intrusive. Rapid speech. Rambling at times. Flight of ideas. Circumstantial. Perseverative regarding her ex- and ex-boyfriend. Presents with poor insight into behaviors prior to admission and while on the unit. She is requesting to have Seroquel decreased to 75mg d/t feeling over-sedated; Seroquel decreased to 75mg PO bedtime. Patient also requested to have Ativan discontinued d/t reporting she feels she does not need it ; DC Ativan. T/W continuously educated patient regarding mood stabilizers, dosages and possible side effects. Patient reports she knows that lithium worked best for her however, is concerned about gaining weight and other possible side effects. After further discussion, patient agreed to starting Kihei 300mg PO BID. T/W obtained collateral from patient's ex-, Stephan Carroll, who reports he has known pt since they were 16 years old and is still in contact with pt. He reports patient has done best on lithium however does not like taking it due to weight gain. He reports concern due to patient calling her financial recording clerk while she is hospitalized, saying she would like to spend 1.7 million to trying purchase her ex-boyfriend's business . T/W also obtain collateral from patient's friend, Alexandro, who reports concerns regarding patient's safety due to patient inviting a woman she met a month ago at [employer] to come live with her along with her 2 kids . She reports security camera showing people leaving in and out of the home at different times of the day. Alexandro states she is worried patient will be taken advantage of due to being well to do . Patient's ex-boyfriend, Cal Wetzel, contacted T/W; Mr. Wetzel was informed there was not a release of information and T/W was not able to discuss patient's status or treatment plan. Mr. Wetzel stated he wanted to relay information regarding patient. He stated he moved out of the house today d/t patient threatening she will start a war and shantelle him . He is worried she is being scammed by the people who are moving in and out of her home. Mr. Wetzel reports, patient called the INSURANCE ASSISTANT of his company and told them he is a serial killer and has been contacting his employees and stating the same . This manual writer called patient's outpatient psychiatrist, Dr. Maldonado; awaiting callback. 08/18: Patient continues to present similar to yesterday. intrusive in other pt's treatment. Talking over T/W during assessment and not allowing for back and forth conversation. Rapid speech. Rambling at times. Flight of ideas. Circumstantial. Perseverative regarding her ex- and ex-boyfriend. T/W met with pt to discuss treatment plan and if she would retract 3 day notice; pt declined and she was informed she would be filed on.Patient compliant with HS Kihei dose, however continues to refuse AM dose despite education of importance regarding medication compliance. Per nursing notes, pt calling police department multiple times last evening; police asked nursing to have pt stop calling. pt slept 3.5 hours last night; encouraged to take Ativan PRN to help with sleep. 08/19: Placed on 1:1 d/t being intrusive with other patients; walking into other patients visits with family. Continues to talk over T/W. Rapid speech. Flight of ideas. Circumstantial. Observed placing all of her belongings and various items on her bedroom floor in a line around her room; multiple piles of items on her bed and in bags. Patient stated, I called the [employer]. I'm waiting for them to return my call. They are going to do a story and expose everyone in this hospital. I want all the footage. They said they are going to send an investigative team to talk to me. I know you and Lien care about me and get me. Thank you for giving me a body guard . Pt declined HS lithium last evening; encouraged to take Kihei when prescribed. per nursing, slept 3.5 hours last night; woke up and began yelling at nursing staff; please see nursing notes. Patient notified of court hearing on 08/25/25. 08/20: Continue current management and treatment plan. Encourage adherence. 08/21: continue current management and treatment plan. Education and continue to encourage adherence. Ordered Trileptal 300 mg BID instead of 300 mg and 900 mg. Hopefully patient will be more consistent with Kihei 300 mg and agree to BID. Continue Seroquel 75 mg and Lamictal 50 mg. Reason for continued inpatient stay Substantial Risk for: inability to function and rapid decompensation Time Spent With Patient Time: Total time managing care of this patient today ____ minutes.
[2025-08-21 19:55] VITALS: BP 123/77; PULSE 75; RESP 16; TEMP 36.4; O2SAT 100
[2025-08-22] VITALS (7 sets, daily range): BP systolic 121–171; BP diastolic 69–72; PULSE 73–87; RESP 16–20; TEMP 36.5–36.6; O2SAT 95–97
[2025-08-22] MEDS: OLANZapine ODT 10 MG TAB.RAPDIS TRANSLINGU (12:10)
[2025-08-22] MEDS: diazePAM 10 MG/2 ML CARTRIDGE 5 MG IM (13:58)
--- NOTE | 2025-08-22 14:01 | P.PNPSI_ITS ---
Subjective Subjective Date of Service: 08/22/25 Reason For Visit: Manic behavior - Decomp Subjective Notes: Section 7 Interim History: Intrusive; touching patients and staff. unable to be redirected. Rapid speech. Flight of ideas. Disorganized. Per nursing, slept 2 hours last night. Patient presents with auditory hallucinations; observed responding to internal stimuli; believes she is speaking with her son, Robert. Pt stated, Robert, do you know how to ride a motorcycle? Are we going to [place]? I can't see you Erick but I know you're here . Pt began looking around unit for her son Robert. Patient was told multiple times her sons were not on the unit. Singing loudly at times about various topics. Focused on mental health counselor, Alfonzo, who she believes is renting a room from her. Patient took AM [place] with encouragement. She declined PRN Zyprexa and Ativan; staff expressed concern to patient regarding her behavior and possibly putting herself in danger d/t peers becoming upset with her d/t patients intrusiveness. At 1340, YARY Monge, contacted T/W and requested medication restraint d/t patient throwing items at staff and attempting to strike her 1:1 sitter. Haldol 5mg IM Stat, Valium 5mg IM Stat and Benadryl 50mg IM stat were ordered. Nursing to monitor. Medication Compliance: Intermittent Side effects from medications: No Attending Groups: No Mental Status Exam Mental Status Exam Narrative: Disheveled. Speech is loud, rapid and pressured. Labile. Intrusive; touching patients and staff. unable to be redirected. Flight of ideas. Disorganized. denies SI/HI. Patient presents with auditory hallucinations; observed responding to internal stimuli; believes she is speaking with her son, Robert. Diagnostics Vital Signs (24Hr): Vital Signs - 24 hr 08/21/25 19:55 08/22/25 04:05 08/22/25 08:00 Temperature 97.5 F 97.7 F Pulse Rate 75 73 87 Respiratory Rate 16 18 18 Blood Pressure 123/77 144/72 H 171/69 H Pulse Oximetry 100 97 Oxygen Delivery Method Room Air Room Air 08/22/25 08:10 Temperature Pulse Rate Respiratory Rate Blood Pressure 170/69 H Pulse Oximetry Oxygen Delivery Method BMI result Body Mass Index 26.1 Labs 08/14/25 07:22 Medications Medications Current Medications Acetaminophen (Acetaminophen 325 Mg Tablet) 650 mg PO Q6H PRN PRN Reason: Headache/Pain, Scale 1-10 Last Admin: 08/19/25 18:59 Dose: 650 mg Al Hydroxide/Mg Hydroxide (Magnesium Hydrox/Alum Hydrox 30 Ml Oral.Susp) 30 ml PO Q6H PRN PRN Reason: Heartburn/Nausea Capsaicin (Capsaicin 0.025% Cream 60 Gm Tube) 1 appl TOPICAL TID PRN; Protocol PRN Reason: Pain, Mild (Pain Scale 1-3) Last Admin: 08/22/25 05:16 Dose: 1 appl Clonidine HCl (Clonidine Hcl 0.1 Mg Tablet) 0.1 mg PO Q4H PRN; Protocol PRN Reason: moderate anxiety/insomnia Last Admin: 08/22/25 08:10 Dose: 0.1 mg Docusate Sodium (Docusate Sodium 100 Mg Capsule) 100 mg PO BID PRN PRN Reason: Constipation Last Admin: 08/17/25 22:23 Dose: 100 mg Hydroxyzine HCl (Hydroxyzine Hcl 25 Mg Tablet) 25 mg PO Q6H PRN PRN Reason: mild anxiety Last Admin: 08/21/25 23:45 Dose: 25 mg Lamotrigine (Lamotrigine 25 Mg Tablet) 50 mg PO DAILY [facility] Last Admin: 08/22/25 08:11 Dose: 50 mg [place] Carbonate ([place] Carbonate 300 Mg Capsule) 300 mg PO BID [facility] Last Admin: 08/22/25 11:15 Dose: 300 mg Lorazepam (Lorazepam 1 Mg Tablet) 1 mg PO TID PRN PRN Reason: severe anxiety Last Admin: 08/21/25 23:39 Dose: 1 mg Magnesium Hydroxide (Milk Of Magnesia 30 Ml Oral.Susp) 30 ml PO DAILY PRN PRN Reason: Constipation Magnesium Oxide (Magnesium Oxide 400 Mg Tablet) 400 mg PO BEDTIME [facility] Last Admin: 08/21/25 23:40 Dose: 400 mg Melatonin (Melatonin 3 Mg Tablet) 6 mg PO BEDTIME [place] Last Admin: 08/21/25 23:42 Dose: 6 mg Naproxen (Naproxen 500 Mg Tablet) 500 mg PO Q12H PRN PRN Reason: Pain, Moderate(Pain Scale 4-6) Last Admin: 08/22/25 04:18 Dose: 500 mg Olanzapine (Olanzapine 5 Mg Tablet) 5 mg PO Q4H PRN PRN Reason: agitation Oxcarbazepine (Oxcarbazepine 300 Mg Tablet) 900 mg PO BEDTIME [facility] On Hold: 08/21/25 13:57 Last Admin: 08/20/25 22:19 Dose: Not Given Oxcarbazepine (Oxcarbazepine 300 Mg Tablet) 300 mg PO BID [facility] Last Admin: 08/22/25 08:28 Dose: Not Given Quetiapine Fumarate (Quetiapine Fumarate 25 Mg Tablet) 12.5 mg PO BID PRN PRN Reason: agitation/severe anxiety Last Admin: 08/21/25 04:14 Dose: 12.5 mg Quetiapine Fumarate (Quetiapine Fumarate 25 Mg Tablet) 75 mg PO BEDTIME [facility] Last Admin: 08/21/25 23:46 Dose: Not Given Allergies Allergies Allergy/AdvReac Type Severity Reaction Status Date / Time No Known Allergies Allergy Verified 08/09/25 21:18 Assessment & Plan Assessment & Plan (1) Bipolar disorder with severe krista: Status: Acute Code(s): F31.13 - Bipolar disorder, current episode manic without psychotic features, severe (2) PTSD (post-traumatic stress disorder): Status: Acute Code(s): F43.10 - Post-traumatic stress disorder, unspecified Plan Patient is a 59 y.o divorce Macedonian speaking female with past medical and psychiatric history of bipolar, PTSD, arithritist, osteoporosis referred to [facility] from [facility] from ED. Patient presented to ED from home on 08/08/2025. She call 911 for wellness checks after and her best friend as her to get herself evaluated with concerns for her safety and mental status. Patient has been acting erratic, not sleeping, moving stuff around in her home 23/06, driving recklessly at high speed, texting threats to her partner, calling her partner's customers, and employees with threats. Formulation/clinical reasoning: ? If medication compliant, increase in manic behavior, paranoid/delusional. History of PTSD, bipolar. Was recently discharged at the beginning of the month from psychiatric hospital when she was not stable. Patient presented with manic behaviors that put herself at risk for safety. We will continue to monitor, medication adjustment, and provide therapeutic environment and groups for coping skills. We will refer patient back to outpatient psychiatric services and therapist for aftercare Plan: Patient on 15 minute checks for safety. Admitted to [facility]. [facility]. Signed another 3 day notice up on 08/18/25- Patient would be a good candidate for civil commitment. Work with treatment team to do collateral and FLU appointments for aftercare. Spoke with Paul- Son at [phone]. Will touch base with him again next day as d/t the bad/weak phone signal, not able to complete the update. Contact the hospitalist regarding hospitalist consultation on admission: seen by Hospitalist on 08/10/25. 08/10/25: Continue Lamictal 75 mg daily for mood. Trileptal 300 twice a day for mood. Seroquel 75 mg at bedtime for insomnia/mood 12.5 mg b.i.d. p.r.n. for agitation or severe anxiety. Perphenazine 2 mg p.r.n. at bedtime. Naproxen 500 b.i.d. p.r.n. arthritis. Trazodone as needed for insomnia. 08/11/25: Patient slept for 6 hours with restless sleep. Per nursing, patient appeared to be confused after taking trazodone. Patient give me the scenarios what was happening at night and she able to recall what she did during the night. She said is not confused, but she should take low dose of trazodone instead. Per record, she was given trazodone with the hydroxyzine and naproxen at around 01:26 in the morning. She remembers she was eating the cookie and milk and waking up crumbs and paper on her body. Advised patient not to combine them. Trazodone is now discontinued. We will revisit if patient needs it. Patient is tangential, very hyperverbal, sometimes not able to stay in the topic. Continue to perseveration on current boyfriend. She also would like to send her phone to the police where they can check the evidence of videos and screen shots as evidence for suspecting the boyfriend or some stranger being around in the house. She also asked what she should do, or should she file restraining order against her boyfriend. Some what her best friend told her that she may have psychosis break. Patient was advised to not making any big decision that could make her feel regret later on when she gets better as for now she is not stable enough. Patient also confused with the 3 day notice, to different staff to confirmed that she signed a 3 days on the day she came in which she did it with me yesterday. If she continues to improve, we will most likely to discharge on Friday. However, it is too early to decide if she is could be stable by that time. She is pleasant, anxious, but cooperative. Continue sharing a long story about her life. She verbally love this provider to call her son Paul at [phone] who called to the social research assistant left voice message saying that he is a healthcare proxy, and power of mergers and acquisitions attorney of his mom. Called Paul the above number, left voice message, with a number to call back. Waiting for response. Armen called back, was in the middle of conversation but was not having good signal. Therefore, will touch base with him another time. Per Armen, his mom basiclly comes to hospital and have episode once yearl. Regarding meds, Armen said it is in a black hole as no one is sure if his mom is compliant with meds or not. He also reports that the paranoid regarding his mom's boyfriend is not reality based. Update Paul with current manic behaviors and possible paranoid thoughts regarding her boyfriend but not about other stuff/other people. Discontinue Trazodone. Will revisit. Increase Lacmital up to 100mg daily in the morning. 08/12/25: Patient only slept 3-1/2 hours, medication compliant. However, per nursing and and other disciplines report, patient appeared to be more manic today. Not able to stay in a topic. Disorganized, but pleasant and cooperative. She appears to be very busy on the phone all day long today in between groups. Patient agrees if she is not getting better by Friday she can stay a little bit longer than Friday. Discussed with patient regarding medication plan. Patient does not agree with the Seroquel increased up to 100 tonight but agrees with adding melatonin and trazodone as needed-25 mg only p.r.n.. She agreed that by tomorrow if she is still not able to sleep, Seroquel up to 100 mg. Reports constipated, and agreed to take Colace twice a day. Appears to have increased appetite, appeared to be tired today, but not resting, racing thoughts, tried to organize the stuff at home from here via phone. Patient continued to believe that the medial she has is evidence of the boyfriend someone did something make her be in danger. Melatonin 6 mg scheduled at bed. Trazodone 25 mg p.r.n. for insomnia. Colace 100 b.i.d. for constipation 08/13/25: Sleep improved- slept for 6 hours last night. Compliant with meds, denies side effects. She loves Melatonin that started last night. Patient agrees to have Trileptal increased up to total of 900mg/daily in divided dose. Review possible side effects of hyponatremia. Check CMP to get another baseline. Hyperverbal pleasant, mild anxiety, more organized that yesterday but appears to restless, not resting, keep herself very busy all day to the point that she states she does not have time to shower today yet. Discuss with patient regarding manic behaviors. Patient does not think she is manic and says it is her baseline. Patient may retract 3 day for further treatment time and medication management. No SI/SIB/HI/AVH. Perseveration on unsafe behavior on boyfriend which could be from her paranoid. Other than that, patient has not made any paranoid/delusions Trileptal 300mg daily in the morning and increase HS dose to 600mg for mood. CMP for 08/14/25. 08/14/25: Patient slept for 7 hours, compliant with medications. No side effects noted, what her blood pressure elevated yesterday, worse even clonidine 0.2 with good effect. Nursing reported the patient called the police, police called to the nurse station to make sure we do not have her call again. Patient continued to have a verbal, tangential, appeared hoarding food. Anxious, keep busy all day long with activities, not rested. She does not want to retracted 3 day today, but will think about that in the morning. No safety concern expressed except for calling the police yesterday. She is visible and attended groups, pleasant to talk to. Sodium is within limit. slightly elevated on liver function. Low on protein. 08/15/25: Patient did not slept last night, only slept fully 45 minutes. She keeps herself busy all day long with lots of ideas, on the phone a lot, not resting, she hoarding food in her room. Hyper verbal, tangential which got worse. She make unreasonable decision, giving personal phone number of family to one of the patients to call, continued to paranoid regarding the boyfriend and exhusband. She became more argumentative, not usually normal pleasant her during one-to-one assessment. Poor insight and poor judgment- letting stranger in the house. continue to perceive that she is not manic, and stated that this is her normal. Per nursing, and social research assistant, patient got worse the past 2 days. She is not sleeping but do not appeared to be tired, increasing in irritable and anxiety mood. Discussed with patient regarding medication plan which patient does not agree with. She does not want any medication changes, in fact reports that Lamictal increased make her med more manic. She was inform the medication changes: Lamictal up to 150 mg, Trileptal up to total of 1200 mg in divided dose, Seroquel increased up to 100 mg at bedtime. Ativan 0.5 t.i.d., plus 1 mg t.i.d. p.r.n. for severe anxiety. Patient states that she will not take medication with those increase. Patient advised to take medication as recommended. She agreed to retracted 3 day, requests to see if she can be evaluated tonight to release/discharge. Informed that she will not be discharged today, she asked if she can retract insight another 3 day. This provider informed the patient that if she plans to sign another 3 day we may not let her retract but file on her instead. In the moment, she agrees that she will stay here to complete the treatment as long as needed. However, she signed the 3 day again in the afternoon, after this provider inform her about medication changes. She does not let this provider talked to her friend -Ravinder patient think Alexandro was affected by her boyfriend. She also paranoid about her ex . She now only just the neighbor, and want the neighbor to involve in the the family meeting that she requests. Call her outpatient provider Dr. Chris Maldonado at [phone]- lvm with a call back. 08/16/25: Patient slept for 8 hours last night, was selective to what dose of medication she wants to take as she does not agree with the medication change yesterday. Do not want to take the Ativan. Discussed with patient regarding lithium. Patient do not want to start on lithium. Reports history of weight gain 40 lb, edema, fluid retention, and have some kidney issues. Patient admitted that it was helpful with her mood, she does not want to do with any side effects if we have to start it again. She also reports history of Depakote 25 years ago, but do not remember the side effects. She does not want to start on Depakote neither. Patient needle she with asking Seroquel to go down to 50 if we increase the Trileptal dose at bedtime. Advised patient continue with the same dose, with increase 900 of Trileptal at bedtime to see how she feels after tonight dose. We will not change/all lowered down on Seroquel. She also advised not to order anything to deliver to [facility]. She asked if she can order some art stuff , for people here and for herself to work on why she is here. She also reported that she have no close and have no bras, she had to wear three layers on the topx. When being told that she can not order stuff to delivered here, she states that another patient was allowed to order some clothes. She also pointed out does no written policy about it. Hyperverbal, tangential, but able to stay in topic during one-to-one assessment. She continued to have poor insight and poor judgment, do not believe she is manic, she rationale for or her hyperverbal and tangential is her normal this is not manic . Per nursing, patient does not like the way we using hyperverbal or tangential to prescribed her behavior. Some mild edema observed on bilateral ankles. We will continue to monitor. Continue with Trileptal current dose which was increased yesterday but she did not take new dose Agree to take it higher dose at night start tonight. Taper down on Lamictal- Per OP provider, patient would be manic on high dose. Continue with Seroquel 75mg at HS. Do not want to take [place] d/t side effects from past experience. Collateral: 08/16/25: Spoke with Dr. Chris Maldonado (outpatient provider Dr. Chris Maldonado at [phone]): Dr. Maldonado thinks we should limit her phone calls. Dr Maldonado stressed that patient should be on lithium, knowing some slightly elevated on TSH. He added, elevated we can start on thyroid medication to treat it. Dr. Maldonado said patient appeared to be more manic on higher dose of Lamictal which he was trying to take per it down. Dr. Maldonado was informed the current mental status of the patient, manic, hyperverbal, paranoid. 08/17: 3 day notice up 08/18/25; pt reports she is considering retracting 3 day notice tomorrow. Active on unit. Intrusive. Rapid speech. Rambling at times. Flight of ideas. Circumstantial. Perseverative regarding her ex- and ex- boyfriend. Presents with poor insight into behaviors prior to admission and while on the unit. She is requesting to have Seroquel decreased to 75mg d/t feeling over-sedated; Seroquel decreased to 75mg PO bedtime. Patient also requested to have Ativan discontinued d/t reporting she feels she does not need it ; DC Ativan. T/W continuously educated patient regarding mood stabilizers, dosages and possible side effects. Patient reports she knows that lithium worked best for her however, is concerned about gaining weight and other possible side effects. After further discussion, patient agreed to starting [place] 300mg PO BID. T/W obtained collateral from patient's ex-, Stephan Carroll, who reports he has known pt since they were 16 years old and is still in contact with pt. He reports patient has done best on lithium however does not like taking it due to weight gain. He reports concern due to patient calling her financial planning consultant while she is hospitalized, saying she would like to spend 1.7 million to trying purchase her ex-boyfriend's business . T/W also obtain collateral from patient's friend, Alexandro, who reports concerns regarding patient's safety due to patient inviting a woman she met a month ago at [facility] to come live with her along with her 2 kids . She reports security camera showing people leaving in and out of the home at different times of the day. Alexandro states she is worried patient will be taken advantage of due to being well to do . Patient's ex-boyfriend, Cal Wetzel, contacted T/W; Mr. Wetzel was informed there was not a release of information and T/W was not able to discuss patient's status or treatment plan. Mr. Wetzel stated he wanted to relay information regarding patient. He stated he moved out of the house today d/t patient threatening she will start a war and shantelle him . He is worried she is being scammed by the people who are moving in and out of her home. Mr. Wetzel reports, patient called the [employer] of his company and told them he is a serial killer and has been contacting his employees and stating the same . This underwriter mortgage loan called patient's outpatient psychiatrist, Dr. Maldonado; awaiting callback. 08/18: Patient continues to present similar to yesterday. intrusive in other pt's treatment. Talking over T/W during assessment and not allowing for back and forth conversation. Rapid speech. Rambling at times. Flight of ideas. Circumstantial. Perseverative regarding her ex- and ex-boyfriend. T/W met with pt to discuss treatment plan and if she would retract 3 day notice; pt declined and she was informed she would be filed on.Patient compliant with HS [place] dose, however continues to refuse AM dose despite education of importance regarding medication compliance. Per nursing notes, pt calling police department multiple times last evening; police asked nursing to have pt stop calling. pt slept 3.5 hours last night; encouraged to take Ativan PRN to help with sleep. 08/19: Placed on 1:1 d/t being intrusive with other patients; walking into other patients visits with family. Continues to talk over T/W. Rapid speech. Flight of ideas. Circumstantial. Observed placing all of her belongings and various items on her bedroom floor in a line around her room; multiple piles of items on her bed and in bags. Patient stated, I called the [employer]. I'm waiting for them to return my call. They are going to do a story and expose everyone in this hospital. I want all the footage. They said they are going to send an investigative team to talk to me. I know you and Lien care about me and get me. Thank you for giving me a body guard . Pt declined HS lithium last evening; encouraged to take [place] when prescribed. per nursing, slept 3.5 hours last night; woke up and began yelling at nursing staff; please see nursing notes. Patient notified of court hearing on 08/25/25. 08/20: Continue current management and treatment plan. Encourage adherence. 08/21: continue current management and treatment plan. Education and continue to encourage adherence. Ordered Trileptal 300 mg BID instead of 300 mg and 900 mg. Hopefully patient will be more consistent with [place] 300 mg and agree to BID. Continue Seroquel 75 mg and Lamictal 50 mg. 08/22:Intrusive; touching patients and staff. unable to be redirected. Rapid speech. Flight of ideas. Disorganized. Per nursing, slept 2 hours last night. Patient presents with auditory hallucinations; observed responding to internal stimuli; believes she is speaking with her son, Robert. Pt stated, Robert, do you know how to ride a motorcycle? Are we going to [place]? I can't see you Erick but I know you're here . Pt began looking around unit for her son Robert. Patient was told multiple times her sons were not on the unit. Singing loudly at times about various topics. Focused on mental health counselor, Alfonzo, who she believes is renting a room from her. Patient took AM [place] with encouragement. She declined PRN Zyprexa and Ativan; staff expressed concern to patient regarding her behavior and possibly putting herself in danger d/t peers becoming upset with her d/t patients intrusiveness. At 1340, YARY Monge, contacted T/W and requested medication restraint d/t patient throwing items at staff and attempting to strike her 1:1 sitter. Haldol 5mg IM Stat, Valium 5mg IM Stat and Benadryl 50mg IM stat were ordered. Nursing to monitor. Patient educated on: diagnosis and medication risk/benefits Reason for continued inpatient stay Substantial Risk for: med/psych decompensation Time Spent With Patient Time: Total time managing care of this patient today _30___ minutes.
--- NOTE | 2025-08-22 14:02 | HO.PSYEVENT ---
Documented by User: Keyona Vásquez NP 08/22/25 15:03 Event Note Date of Service: 08/22/25 Psych Restraint Event Note: At 1340, YARY Monge, contacted T/W and requested medication restraint d/t patient throwing items at staff and attempting to strike her 1:1 sitter. Haldol 5mg IM Stat, Valium 5mg IM Stat and Benadryl 50mg IM stat were ordered. Nursing to monitor. Time Spent With Patient Time: Total time managing care of this patient today _20___ minutes. Documented by User: Leonardo Parker MD 08/22/25 16:13 Event Note Date of Service: 08/22/25
--- NOTE | 2025-08-22 14:02 | HO.BHRESTREX ---
Behavioral Restraint Exam Behavioral Health Restraint Exam Type of Restraint: Physical Hold and Medication Reason for Restraint: Substantial Risk and Substantial Risk of Harm to Others Medical Concerns for Restraint: No medical concerns, pt w/o acute inj / no noted resp/VS abnormalities Behavioral Assessment / Plan: Concerns / further recommendations, explain below: Comment: Patient will continue on 1:1 safety checks d/t poor insight and judgement.
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
--- NOTE | 2025-08-22 17:31 | HO.BHRESTREX ---
Behavioral Restraint Exam Behavioral Health Restraint Exam Type of Restraint: Physical Hold and Medication Reason for Restraint: Substantial Risk of Harm to Others Medical Concerns for Restraint: No medical concerns, pt w/o acute inj / no noted resp/VS abnormalities If exam took place greater than one hour after restraint please explain:: N/A Behavioral Assessment / Plan: No further behavioral concerns, continue current plan. (Patient will continue to be on 1-1 obs) Comment: Patient was seen/assessed face tp face within an hour of restraint
[2025-08-22] MEDS: OLANZapine 10 MG VIAL IM (17:43)
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
--- NOTE | 2025-08-22 19:05 | PC.NURSE ---
Pt slowly began to become intrusive and aggressive towards staff. Pt was touching staff, grabbing at their badges and trying to get out the door. Pt was also pushing on double doors and then pushing aggressively on staff unable to follow staffs redirections. Pt required a second restraint at 1710, a hold was initiated, the chair then IM medication, Zyprexa 10mg , Benadryl 50mg. Pt scratched MHC during the hold. Pt calmed at 1805 and released. Pt laid in bed at this time.
[2025-08-22] MEDS: diazePAM 10 MG/2 ML CARTRIDGE IM (20:47)
--- NOTE | 2025-08-22 20:56 | HO.BHRESTREX ---
Behavioral Restraint Exam Behavioral Health Restraint Exam Type of Restraint: Medication Reason for Restraint: Substantial Risk of Harm to Others Medical Concerns for Restraint: No medical concerns, pt w/o acute inj / no noted resp/VS abnormalities If exam took place greater than one hour after restraint please explain:: N/A Behavioral Assessment / Plan: No further behavioral concerns, continue current plan. Comment: Patent was seen/assessed face to face within an hour of restraint
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
[2025-08-23 08:00] VITALS: BP 110/61; PULSE 82; RESP 14; TEMP 36.7; O2SAT 96
--- NOTE | 2025-08-23 08:57 | HO.PSYCHPN ---
Subjective Subjective Date of Service: 08/23/25 Reason For Visit: Manic behavior - Decomp Subjective Notes: Section 7 Interim History: Intrusive; touching patients and staff. unable to be redirected. Disorganized. Pt placed on 2:1 safety checks d/t need for constant redirection and intrusiveness. Declined AM medications. Patient was able to sleep 8 hours d/t multiple medications administered yesterday from restraints. Patient attempting to leave bedroom today without pants or undergarments. Screaming loudly at times. Putting herself on the floor and acting out making snow angels. Selectively mute today, using hand gestures to communicate. T/W spoke with patient's outpatient psychiatrist, Dr. Maldonado, who reviewed past medications trials: Depakote, Lamictal, Trilafon, Caplyta, Latuda, Seroquel, Risperidal, Zyprexa. Dr. Maldonado stated he believes patient would benefit from being on [place] . At 1040, YARY Costa, notified T/W, patient spit in RN's face after RN was attempting to administer medications. Haldol 10mg IM Stat, Valium 10mg IM Stat and Benadryl 50mg IM Stat were ordered. Nursing to monitor. Medication Compliance: Intermittent Side effects from medications: No Attending Groups: No Mental Status Exam Mental Status Exam Narrative: Disheveled. Speech is loud, screaming at times. Labile. Intrusive; touching patients and staff. unable to be redirected. Disorganized. did not appear to be responding to internal stimuli during assessment. Diagnostics Vital Signs (24Hr): Vital Signs - 24 hr 08/22/25 20:57 08/22/25 21:12 08/22/25 21:27 Temperature 97.8 F Pulse Rate 81 Respiratory Rate 20 16 16 Blood Pressure 121/69 Pulse Oximetry 95 Oxygen Delivery Method Room Air 08/22/25 21:42 08/23/25 08:00 Temperature 98.1 F Pulse Rate 82 Respiratory Rate 16 14 Blood Pressure 110/61 Pulse Oximetry 96 Oxygen Delivery Method Room Air BMI result Body Mass Index 26.1 Labs 08/23/25 11:07 08/23/25 11:06 Medications Medications Current Medications Acetaminophen (Acetaminophen 325 Mg Tablet) 650 mg PO Q6H PRN PRN Reason: Headache/Pain, Scale 1-10 Last Admin: 08/19/25 18:59 Dose: 650 mg Al Hydroxide/Mg Hydroxide (Magnesium Hydrox/Alum Hydrox 30 Ml Oral.Susp) 30 ml PO Q6H PRN PRN Reason: Heartburn/Nausea Capsaicin (Capsaicin 0.025% Cream 60 Gm Tube) 1 appl TOPICAL TID PRN; Protocol PRN Reason: Pain, Mild (Pain Scale 1-3) Last Admin: 08/22/25 05:16 Dose: 1 appl Clonidine HCl (Clonidine Hcl 0.1 Mg Tablet) 0.1 mg PO Q4H PRN; Protocol PRN Reason: moderate anxiety/insomnia Last Admin: 08/22/25 08:10 Dose: 0.1 mg Docusate Sodium (Docusate Sodium 100 Mg Capsule) 100 mg PO BID PRN PRN Reason: Constipation Last Admin: 08/17/25 22:23 Dose: 100 mg Hydroxyzine HCl (Hydroxyzine Hcl 25 Mg Tablet) 25 mg PO Q6H PRN PRN Reason: mild anxiety Last Admin: 08/21/25 23:45 Dose: 25 mg Lamotrigine (Lamotrigine 25 Mg Tablet) 50 mg PO DAILY [facility] Last Admin: 08/22/25 08:11 Dose: 50 mg [place] Carbonate ([place] Carbonate 300 Mg Capsule) 300 mg PO BID [facility] Last Admin: 08/22/25 22:36 Dose: Not Given Lorazepam (Lorazepam 1 Mg Tablet) 1 mg PO TID PRN PRN Reason: severe anxiety Last Admin: 08/21/25 23:39 Dose: 1 mg Magnesium Hydroxide (Milk Of Magnesia 30 Ml Oral.Susp) 30 ml PO DAILY PRN PRN Reason: Constipation Magnesium Oxide (Magnesium Oxide 400 Mg Tablet) 400 mg PO BEDTIME [facility] Last Admin: 08/22/25 22:36 Dose: Not Given Melatonin (Melatonin 3 Mg Tablet) 6 mg PO BEDTIME [facility] Last Admin: 08/22/25 22:36 Dose: Not Given Naproxen (Naproxen 500 Mg Tablet) 500 mg PO Q12H PRN PRN Reason: Pain, Moderate(Pain Scale 4-6) Last Admin: 08/22/25 04:18 Dose: 500 mg Olanzapine (Olanzapine 5 Mg Tablet) 5 mg PO Q4H PRN PRN Reason: agitation Oxcarbazepine (Oxcarbazepine 300 Mg Tablet) 900 mg PO BEDTIME [facility] On Hold: 08/21/25 13:57 Last Admin: 08/20/25 22:19 Dose: Not Given Oxcarbazepine (Oxcarbazepine 300 Mg Tablet) 300 mg PO BID [facility] Last Admin: 08/22/25 22:36 Dose: Not Given Quetiapine Fumarate (Quetiapine Fumarate 25 Mg Tablet) 12.5 mg PO BID PRN PRN Reason: agitation/severe anxiety Last Admin: 08/21/25 04:14 Dose: 12.5 mg Quetiapine Fumarate (Quetiapine Fumarate 25 Mg Tablet) 75 mg PO BEDTIME [facility] Last Admin: 08/22/25 22:36 Dose: Not Given Allergies Allergies Allergy/AdvReac Type Severity Reaction Status Date / Time No Known Allergies Allergy Verified 08/09/25 21:18 Assessment & Plan Assessment & Plan (1) Bipolar disorder with severe krista: Status: Acute Code(s): F31.13 - Bipolar disorder, current episode manic without psychotic features, severe (2) PTSD (post-traumatic stress disorder): Status: Acute Code(s): F43.10 - Post-traumatic stress disorder, unspecified Plan Patient is a 59 y.o divorce Georgian speaking female with past medical and psychiatric history of bipolar, PTSD, arithritist, osteoporosis [place] [facility] [place] [facility] [place]. Patient presented to ED from home on 08/08/2025. She call 911 for wellness checks after and her best friend as her to get herself evaluated with concerns for her safety and mental status. Patient has been acting erratic, not sleeping, moving stuff around in her home 23/06, driving recklessly at high speed, texting threats to her partner, calling her partner's customers, and employees with threats. Formulation/clinical reasoning: ? If medication compliant, increase in manic behavior, paranoid/delusional. History of PTSD, bipolar. Was recently discharged at the beginning of the month from psychiatric hospital when she was not stable. Patient presented with manic behaviors that put herself at risk for safety. We will continue to monitor, medication adjustment, and provide therapeutic environment and groups for coping skills. We will refer patient back to outpatient psychiatric services and therapist for aftercare Plan: Patient on 15 minute checks for safety. Admitted to . [facility]. Signed another 3 day notice up on 08/18/25- Patient would be a good candidate for civil commitment. Work with treatment team to do collateral and FLU appointments for aftercare. Spoke with Paul- Son at [phone]. Will touch base with him again next day as d/t the bad/weak phone signal, not able to complete the update. Contact the hospitalist regarding hospitalist consultation on admission: seen by Hospitalist on 08/10/25. 08/10/25: Continue Lamictal 75 mg daily for mood. Trileptal 300 twice a day for mood. Seroquel 75 mg at bedtime for insomnia/mood 12.5 mg b.i.d. p.r.n. for agitation or severe anxiety. Perphenazine 2 mg p.r.n. at bedtime. Naproxen 500 b.i.d. p.r.n. arthritis. Trazodone as needed for insomnia. 08/11/25: Patient slept for 6 hours with restless sleep. Per nursing, patient appeared to be confused after taking trazodone. Patient give me the scenarios what was happening at night and she able to recall what she did during the night. She said is not confused, but she should take low dose of trazodone instead. Per record, she was given trazodone with the hydroxyzine and naproxen at around 01:26 in the morning. She remembers she was eating the cookie and milk and waking up crumbs and paper on her body. Advised patient not to combine them. Trazodone is now discontinued. We will revisit if patient needs it. Patient is tangential, very hyperverbal, sometimes not able to stay in the topic. Continue to perseveration on current boyfriend. She also would like to send her phone to the police where they can check the evidence of videos and screen shots as evidence for suspecting the boyfriend or some stranger being around in the house. She also asked what she should do, or should she file restraining order against her boyfriend. Some what her best friend told her that she may have psychosis break. Patient was advised to not making any big decision that could make her feel regret later on when she gets better as for now she is not stable enough. Patient also confused with the 3 day notice, to different staff to confirmed that she signed a 3 days on the day she came in which she did it with me yesterday. If she continues to improve, we will most likely to discharge on Friday. However, it is too early to decide if she is could be stable by that time. She is pleasant, anxious, but cooperative. Continue sharing a long story about her life. She verbally love this provider to call her son Paul at [phone] who called to the social staff worker left voice message saying that he is a healthcare proxy, and power of deputy county attorney of his mom. Called Paul the above number, left voice message, with a number to call back. Waiting for response. Armen called back, was in the middle of conversation but was not having good signal. Therefore, will touch base with him another time. Per Armen, his mom basiclly comes to hospital and have episode once yearl. Regarding meds, Armen said it is in a black hole as no one is sure if his mom is compliant with meds or not. He also reports that the paranoid regarding his mom's boyfriend is not reality based. Update Paul with current manic behaviors and possible paranoid thoughts regarding her boyfriend but not about other stuff/other people. Discontinue Trazodone. Will revisit. Increase Lacmital up to 100mg daily in the morning. 08/12/25: Patient only slept 3-1/2 hours, medication compliant. However, per nursing and and other disciplines report, patient appeared to be more manic today. Not able to stay in a topic. Disorganized, but pleasant and cooperative. She appears to be very busy on the phone all day long today in between groups. Patient agrees if she is not getting better by Friday she can stay a little bit longer than Friday. Discussed with patient regarding medication plan. Patient does not agree with the Seroquel increased up to 100 tonight but agrees with adding melatonin and trazodone as needed-25 mg only p.r.n.. She agreed that by tomorrow if she is still not able to sleep, Seroquel up to 100 mg. Reports constipated, and agreed to take Colace twice a day. Appears to have increased appetite, appeared to be tired today, but not resting, racing thoughts, tried to organize the stuff at home from here via phone. Patient continued to believe that the medial she has is evidence of the boyfriend someone did something make her be in danger. Melatonin 6 mg scheduled at bed. Trazodone 25 mg p.r.n. for insomnia. Colace 100 b.i.d. for constipation 08/13/25: Sleep improved- slept for 6 hours last night. Compliant with meds, denies side effects. She loves Melatonin that started last night. Patient agrees to have Trileptal increased up to total of 900mg/daily in divided dose. Review possible side effects of hyponatremia. Check CMP to get another baseline. Hyperverbal pleasant, mild anxiety, more organized that yesterday but appears to restless, not resting, keep herself very busy all day to the point that she states she does not have time to shower today yet. Discuss with patient regarding manic behaviors. Patient does not think she is manic and says it is her baseline. Patient may retract 3 day for further treatment time and medication management. No SI/SIB/HI/AVH. Perseveration on unsafe behavior on boyfriend which could be from her paranoid. Other than that, patient has not made any paranoid/delusions Trileptal 300mg daily in the morning and increase HS dose to 600mg for mood. CMP for 08/14/25. 08/14/25: Patient slept for 7 hours, compliant with medications. No side effects noted, what her blood pressure elevated yesterday, worse even clonidine 0.2 with good effect. Nursing reported the patient called the police, police called to the nurse station to make sure we do not have her call again. Patient continued to have a verbal, tangential, appeared hoarding food. Anxious, keep busy all day long with activities, not rested. She does not want to retracted 3 day today, but will think about that in the morning. No safety concern expressed except for calling the police yesterday. She is visible and attended groups, pleasant to talk to. Sodium is within limit. slightly elevated on liver function. Low on protein. 08/15/25: Patient did not slept last night, only slept fully 45 minutes. She keeps herself busy all day long with lots of ideas, on the phone a lot, not resting, she hoarding food in her room. Hyper verbal, tangential which got worse. She make unreasonable decision, giving personal phone number of family to one of the patients to call, continued to paranoid regarding the boyfriend and exhusband. She became more argumentative, not usually normal pleasant her during one-to-one assessment. Poor insight and poor judgment- letting stranger in the house. continue to perceive that she is not manic, and stated that this is her normal. Per nursing, and social staff worker, patient got worse the past 2 days. She is not sleeping but do not appeared to be tired, increasing in irritable and anxiety mood. Discussed with patient regarding medication plan which patient does not agree with. She does not want any medication changes, in fact reports that Lamictal increased make her med more manic. She was inform the medication changes: Lamictal up to 150 mg, Trileptal up to total of 1200 mg in divided dose, Seroquel increased up to 100 mg at bedtime. Ativan 0.5 t.i.d., plus 1 mg t.i.d. p.r.n. for severe anxiety. Patient states that she will not take medication with those increase. Patient advised to take medication as recommended. She agreed to retracted 3 day, requests to see if she can be evaluated tonight to release/discharge. Informed that she will not be discharged today, she asked if she can retract insight another 3 day. This provider informed the patient that if she plans to sign another 3 day we may not let her retract but file on her instead. In the moment, she agrees that she will stay here to complete the treatment as long as needed. However, she signed the 3 day again in the afternoon, after this provider inform her about medication changes. She does not let this provider talked to her friend -Ravinder patient think Alexandro was affected by her boyfriend. She also paranoid about her ex . She now only just the neighbor, and want the neighbor to involve in the the family meeting that she requests. Call her outpatient provider Dr. Chris Maldonado at [phone]- lvm with a call back. 08/16/25: Patient slept for 8 hours last night, was selective to what dose of medication she wants to take as she does not agree with the medication change yesterday. Do not want to take the Ativan. Discussed with patient regarding lithium. Patient do not want to start on lithium. Reports history of weight gain 40 lb, edema, fluid retention, and have some kidney issues. Patient admitted that it was helpful with her mood, she does not want to do with any side effects if we have to start it again. She also reports history of Depakote 25 years ago, but do not remember the side effects. She does not want to start on Depakote neither. Patient needle she with asking Seroquel to go down to 50 if we increase the Trileptal dose at bedtime. Advised patient continue with the same dose, with increase 900 of Trileptal at bedtime to see how she feels after tonight dose. We will not change/all lowered down on Seroquel. She also advised not to order anything to deliver [place] [facility] She asked if she can order some art stuff , for people here and for herself to work on why she is here. She also reported that she have no close and have no bras, she had to wear three layers on the topx. When being told that she can not order stuff to delivered here, she states that another patient was allowed to order some clothes. She also pointed out does no written policy about it. Hyperverbal, tangential, but able to stay in topic during one-to-one assessment. She continued to have poor insight and poor judgment, do not believe she is manic, she rationale for or her hyperverbal and tangential is her normal this is not manic . Per nursing, patient does not like the way we using hyperverbal or tangential to prescribed her behavior. Some mild edema observed on bilateral ankles. We will continue to monitor. Continue with Trileptal current dose which was increased yesterday but she did not take new dose Agree to take it higher dose at night start tonight. Taper down on Lamictal- Per OP provider, patient would be manic on high dose. Continue with Seroquel 75mg at HS. Do not want to take [place] d/t side effects from past experience. Collateral: 08/16/25: Spoke with Dr. Chris Maldonado (outpatient provider Dr. Chris Maldonado at [phone]): Dr. Maldonado thinks we should limit her phone calls. Dr Maldonado stressed that patient should be on lithium, knowing some slightly elevated on TSH. He added, elevated we can start on thyroid medication to treat it. Dr. Maldonado said patient appeared to be more manic on higher dose of Lamictal which he was trying to take per it down. Dr. Maldonado was informed the current mental status of the patient, manic, hyperverbal, paranoid. 08/17: 3 day notice up 08/18/25; pt reports she is considering retracting 3 day notice tomorrow. Active on unit. Intrusive. Rapid speech. Rambling at times. Flight of ideas. Circumstantial. Perseverative regarding her ex- and ex-boyfriend. Presents with poor insight into behaviors prior to admission and while on the unit. She is requesting to have Seroquel decreased to 75mg d/t feeling over-sedated; Seroquel decreased to 75mg PO bedtime. Patient also requested to have Ativan discontinued d/t reporting she feels she does not need it ; DC Ativan. T/W continuously educated patient regarding mood stabilizers, dosages and possible side effects. Patient reports she knows that lithium worked best for her however, is concerned about gaining weight and other possible side effects. After further discussion, patient agreed to starting [place] 300mg PO BID. T/W obtained collateral from patient's ex-, Stephan Carroll, who reports he has known pt since they were 16 years old and is still in contact with pt. He reports patient has done best on lithium however does not like taking it due to weight gain. He reports concern due to patient calling her financial foundations representative while she is hospitalized, saying she would like to spend 1.7 million to trying purchase her ex-boyfriend's business . T/W also obtain collateral from patient's friend, Alexandro, who reports concerns regarding patient's safety due to patient inviting a woman she met a month ago at [facility] to come live with her along with her 2 kids . She reports security camera showing people leaving in and out of the home at different times of the day. Alexandro states she is worried patient will be taken advantage of due to being well to do . Patient's ex-boyfriend, Cal Wetzel, contacted T/W; Mr. Wetzel was informed there was not a release of information and T/W was not able to discuss patient's status or treatment plan. Mr. Wetzel stated he wanted to relay information regarding patient. He stated he moved out of the house today d/t patient threatening she will start a war and shantelle him . He is worried she is being scammed by the people who are moving in and out of her home. Mr. Wetzel reports, patient called the PORT ENGINE[employer] of his company and told them he is a serial killer and has been contacting his employees and stating the same . This documentation writer called patient's outpatient psychiatrist, Dr. Maldonado; awaiting callback. 08/18: Patient continues to present similar to yesterday. intrusive in other pt's treatment. Talking over T/W during assessment and not allowing for back and forth conversation. Rapid speech. Rambling at times. Flight of ideas. Circumstantial. Perseverative regarding her ex- and ex-boyfriend. T/W met with pt to discuss treatment plan and if she would retract 3 day notice; pt declined and she was informed she would be filed on.Patient compliant with HS [place] dose, however continues to refuse AM dose despite education of importance regarding medication compliance. Per nursing notes, pt calling police department multiple times last evening; police asked nursing to have pt stop calling. pt slept 3.5 hours last night; encouraged to take Ativan PRN to help with sleep. 08/19: Placed on 1:1 d/t being intrusive with other patients; walking into other patients visits with family. Continues to talk over T/W. Rapid speech. Flight of ideas. Circumstantial. Observed placing all of her belongings and various items on her bedroom floor in a line around her room; multiple piles of items on her bed and in bags. Patient stated, I called the [employer]. I'm waiting for them to return my call. They are going to do a story and expose everyone in this hospital. I want all the footage. They said they are going to send an investigative team to talk to me. I know you and Lien care about me and get me. Thank you for giving me a body guard . Pt declined HS lithium last evening; encouraged to take [place] when prescribed. per nursing, slept 3.5 hours last night; woke up and began yelling at nursing staff; please see nursing notes. Patient notified of court hearing on 08/25/25. 08/20: Continue current management and treatment plan. Encourage adherence. 08/21: continue current management and treatment plan. Education and continue to encourage adherence. Ordered Trileptal 300 mg BID instead of 300 mg and 900 mg. Hopefully patient will be more consistent with [place] 300 mg and agree to BID. Continue Seroquel 75 mg and Lamictal 50 mg. 08/22:Intrusive; touching patients and staff. unable to be redirected. Rapid speech. Flight of ideas. Disorganized. Per nursing, slept 2 hours last night. Patient presents with auditory hallucinations; observed responding to internal stimuli; believes she is speaking with her son, Robert. Pt stated, Robert, do you know how to ride a motorcycle? Are we going to [place]? I can't see you Erick but I know you're here . Pt began looking around unit for her son Robert. Patient was told multiple times her sons were not on the unit. Singing loudly at times about various topics. Focused on mental health counselor, Alfonzo, who she believes is renting a room from her. Patient took AM [place] with encouragement. She declined PRN Zyprexa and Ativan; staff expressed concern to patient regarding her behavior and possibly putting herself in danger d/t peers becoming upset with her d/t patients intrusiveness. At 1340, YARY Monge, contacted T/W and requested medication restraint d/t patient throwing items at staff and attempting to strike her 1:1 sitter. Haldol 5mg IM Stat, Valium 5mg IM Stat and Benadryl 50mg IM stat were ordered. Nursing to monitor. 08/23: Intrusive; touching patients and staff. unable to be redirected. Disorganized. Pt placed on 2:1 safety checks d/t need for constant redirection and intrusiveness. Declined AM medications. Patient was able to sleep 8 hours d/t multiple medications administered yesterday from restraints. Patient attempting to leave bedroom today without pants or undergarments. Screaming loudly at times. Putting herself on the floor and acting out making snow angels. Selectively mute today, using hand gestures to communicate. DC lamictal DC melatonin Decrease Triletptal to 600mg PO bedtime with plan to taper off. Obtain labs. T/W spoke with patient's outpatient psychiatrist, Dr. Maldonado, who reviewed past medications trials: Depakote, Lamictal, Trilafon, Caplyta, Latuda, Seroquel, Risperidal, Zyprexa. Dr. Maldonado stated he believes patient would benefit from being on [place] . At 1040, RN Julissa, notified T/W, patient spit in RN's face after RN was attempting to administer medications. Haldol 10mg IM Stat, Valium 10mg IM Stat and Benadryl 50mg IM Stat were ordered. Nursing to monitor. Patient educated on: medication risk/benefits Reason for continued inpatient stay Substantial Risk for: med/psych decompensation Time Spent With Patient Time: Total time managing care of this patient today _30___ minutes.
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
--- NOTE | 2025-08-23 10:50 | HO.BHRESTREX ---
Behavioral Restraint Exam Behavioral Health Restraint Exam Type of Restraint: Physical Hold, Medication and Mechanical Reason for Restraint: Substantial Risk and Substantial Risk of Harm to Others Medical Concerns for Restraint: No medical concerns, pt w/o acute inj / no noted resp/VS abnormalities Behavioral Assessment / Plan: Concerns / further recommendations, explain below: Comment: Patient placed on 2:1 safety checks.
[2025-08-23] MEDS: diazePAM 10 MG/2 ML CARTRIDGE IM (10:52)
[2025-08-23 11:18] LABS: Hematocrit 36.5 % (37.0-47.0); Hemoglobin 12.0 g/dl (12.0-16.0); Imm Gran Abs Auto 0.03 X10*3/uL (0.00-0.03); Imm Gran Pct Auto 0.4 % (0.0-0.4); Lymphocytes Absolute Auto 1.3 X10*3/uL (1.2-4.9); Mean Corpuscular HGB Conc 32.9 g/dl (31.0-35.0); Mean Corpuscular Hemoglobin 30.8 pg (27.0-33.0); Mean Corpuscular Volume 93.8 fL (80.0-98.0); NRBC Abs Auto 0.000 X10*3/uL (0.0-0.012); NRBC Pct Auto 0.0 /100WBC (0.0-0.2); Neut%MD 71.7 %; Platelet Count 286 X10*3/uL (160-400); Red Blood Count 3.89 X10*6/uL (4.20-5.50); WBCANC 7.4 X10*3/uL; White Blood Count 7.4 X10*3/uL (4.8-10.8)
[2025-08-23 11:22] LABS: Ammonia 40 umol/L (13-55); Lithium 0.14 mmol/L (0.60-1.20)
[2025-08-23 11:35] LABS: Hemoglobin A1C 118.9155 umol/L; Total Hemoglobin (HGBA1C) 3141.9873 umol/L
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
[2025-08-23 11:42] LABS: Albumin Level 4.4 g/dL (3.5-5.0); Alkaline Phosphatase 94 U/L (39-117); Anion Gap 12 (12-20); Aspartate Amino Transferase 105 U/L (5-31); Blood Urea Nitrogen 25 mg/dL (9-16); Calcium 9.1 mg/dL (8.4-10.2); Carbon Dioxide 25 mmol/L (22-29); Chloride 108 mmol/L (96-108); Creatinine Clr Calc Pharmacy 66.1; Estimated Glomerular Filt Rate > 60; Potassium 3.9 mmol/L (3.3-5.1); Sodium 141 mmol/L (135-145); Total Protein 6.9 g/dL (6.5-8.0)
[2025-08-23 11:57] LABS: Alanine Aminotransferase 106 U/L (0-31)
[2025-08-23 12:24] LABS: Free T4 (Free Thyroxine) 0.82 ng/dL (0.71-1.85)
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
--- NOTE | 2025-08-23 18:08 | PC.NURSE ---
The following information regaridng pt behavior was relayed to this RN in writing from [facility] staff on yesterday's shifts: Flailing arms, kicking legs pulling shirt up and trying to tae pants off Taking items from around the room: pillows, towels and wet items and throwing them at staff grabbing/ pulling badges, clothing and zippers of staff trying to kiss staff trying to nuzzle into staff armpit touched buttocks and breast of staff multiple times grabbed at male staff groin area multiple times mimicked birthing a baby pulled down pants, grabbed her buttocks cheeks, spread them, and acted as if she were defecating laughed when verbally redirected Pt was going into staff pockets and taking phone , refusing to return it attempting to take staff keys throwing linens, trash and clothes in toilet and then all over the hallway undressing and crawling on the floor in the milieu disrobing and going toward other pateintes, touching their faces and trying to kiss on mouth. Crawling on floor barking and growling and attempting to bite male staff including in the crotch area. These concerning behaviors were relayed to Maggi Vásquez RN provider and Clinical Coordinator Scott Leal today.
[2025-08-23 20:00] VITALS: BP 133/88; PULSE 67; RESP 18; TEMP 37.1; O2SAT 99
--- NOTE | 2025-08-24 08:27 | P.PNIM_ITS ---
Subjective Subjective Date of Service: 08/24/25 Interval History: Patient noted to have a TSH of 7.43, free T4 within normal limits. Patient also has a increase in her liver function tests. Hepatitis panel pending. On exam patient very disorganized. Difficult to redirect. Has been requiring periodic restraints. Review of Systems Denies any shortness of breath, chest pain, dizziness, lightheadedness, abdominal pain or discomfort, nausea vomiting or diarrhea Physical Exam 2 Exam: Exam: CONST: Alert and oriented, in NAD. Well nourished HEENT: Normocephalic, atraumatic, MMM RESP: Lungs clear, RRR even and regular HEART:,RRR, S1, S2. No edema GI:Abdomen Soft NT, ND. + BS times four :Deferred SKIN: Warm dry and intact, no visible lesions or rashes NEURO:CN II-XII Intact bilaterally, Sensation intact. Speech clear PSYCH: Disorganized, agitated Vital Signs: Vital Signs: Last Vital Signs Temp 98.8 F 08/23/25 20:00 Pulse 67 08/23/25 20:00 Resp 18 08/23/25 20:00 BP 133/88 08/23/25 20:00 Pulse Ox 99 08/23/25 20:00 O2 Del Method Room Air 08/23/25 20:00 BMI result Body Mass Index 26.1 Objective Data Active Medications Acetaminophen (Acetaminophen 325 Mg Tablet) 650 mg PO Q6H PRN PRN Reason: Headache/Pain, Scale 1-10 Last Admin: 08/19/25 18:59 Dose: 650 mg Documented By: LOREN Al Hydroxide/Mg Hydroxide (Magnesium Hydrox/Alum Hydrox 30 Ml Oral.Susp) 30 ml PO Q6H PRN PRN Reason: Heartburn/Nausea Capsaicin (Capsaicin 0.025% Cream 60 Gm Tube) 1 appl TOPICAL TID PRN; Protocol PRN Reason: Pain, Mild (Pain Scale 1-3) Last Admin: 08/22/25 05:16 Dose: 1 appl Documented By: HUNG Docusate Sodium (Docusate Sodium 100 Mg Capsule) 100 mg PO BID PRN PRN Reason: Constipation Last Admin: 08/17/25 22:23 Dose: 100 mg Documented By: JASMYNE Hydroxyzine HCl (Hydroxyzine Hcl 25 Mg Tablet) 25 mg PO Q6H PRN PRN Reason: mild anxiety Last Admin: 08/21/25 23:45 Dose: 25 mg Documented By: HUNG [place] Carbonate ([place] Carbonate 300 Mg Capsule) 300 mg PO BID [facility] Last Admin: 08/23/25 20:22 Dose: Not Given Documented By: JESS Non-Admin Reason: Patient Refused Lorazepam (Lorazepam 1 Mg Tablet) 1 mg PO TID PRN PRN Reason: severe anxiety Last Admin: 08/23/25 20:03 Dose: 1 mg Documented By: JESS Magnesium Hydroxide (Milk Of Magnesia 30 Ml Oral.Susp) 30 ml PO DAILY PRN PRN Reason: Constipation Magnesium Oxide (Magnesium Oxide 400 Mg Tablet) 400 mg PO BEDTIME [facility] Last Admin: 08/23/25 20:22 Dose: Not Given Documented By: JESS Non-Admin Reason: Patient Refused Naproxen (Naproxen 500 Mg Tablet) 500 mg PO Q12H PRN PRN Reason: Pain, Moderate(Pain Scale 4-6) Last Admin: 08/22/25 04:18 Dose: 500 mg Documented By: JASMYNE Olanzapine (Olanzapine 5 Mg Tablet) 5 mg PO Q4H PRN PRN Reason: agitation Oxcarbazepine (Oxcarbazepine 300 Mg Tablet) 600 mg PO BEDTIME [facility] Last Admin: 08/23/25 20:22 Dose: Not Given Documented By: JESS Non-Admin Reason: Patient Refused Quetiapine Fumarate (Quetiapine Fumarate 25 Mg Tablet) 12.5 mg PO BID PRN PRN Reason: agitation/severe anxiety Last Admin: 08/21/25 04:14 Dose: 12.5 mg Documented By: ELIEZER Quetiapine Fumarate (Quetiapine Fumarate 25 Mg Tablet) 75 mg PO BEDTIME [facility] Last Admin: 08/23/25 20:02 Dose: 75 mg Documented By: JESS Labs 08/23/25 11:07 08/23/25 11:06 Labs: Laboratory Results - last 24 hr 08/23/25 08/23/25 11:06 11:07 MCV 93.8 MCH 30.8 MCHC 32.9 RDW 13.3 Plt Count 286 MPV 10.1 Immature Gran % (Auto) 0.4 Neut % (Auto) 71.7 Lymph % (Auto) 18.0 L [place] % (Auto) 8.0 Eos % (Auto) 1.4 Baso % (Auto) 0.5 Lymph # (Auto) 1.3 [place] # (Auto) 0.6 Eos # (Auto) 0.1 Baso # (Auto) 0.0 Abs Immat Gran (auto) 0.03 Absolute Neuts (auto) 5.3 Absolute Nucleated RBC 0.000 Nucleated RBC % (auto) 0.0 Anion Gap 12 Estim Creat Clear Calc 66.1 Estimated GFR > 60 Random Glucose 93 Estimat Average Glucose 114 Hemoglobin A1c % 5.6 Calcium 9.1 Total Bilirubin 0.3 Direct Bilirubin 0.1 AST 105 H ALT 106 H Alkaline Phosphatase 94 Ammonia 40 Total Protein 6.9 Albumin 4.4 TSH 7.43 H Free T4 0.82 [place] 0.14 L Assessment and Plan (1) Abnormal TSH: Status: Acute Plan Bipolar disorder/MDD/anxiety/PTSD/mood disorder Treatment per psychiatric team Bilateral hand arthritis, right knee arthritis/leg cramps Naprosyn twice a day as needed, capscasin TID PRN Magnesium at bedtime. Transaminitis Followed by psych, meds decreased Hepatitis panel pending Abdominal exam benign Elevated TSH with normal free T4 Recommend rechecking in 3 months. No indication to start replacement therapy at this time Thank you for allowing me to participate in the care of this patient. Signing off at this time. Please reconsult of any acute concerns or issues arise Quality Stroke Does the patient have a stroke diagnosis?: No VTE Prior VTE?: No VTE Risk Level:: Medical - low VTE Device Contraindication: Treatment Not Indicated VTE Drug Contraindication: Treatment Not Indicated
--- NOTE | 2025-08-24 08:58 | HO.PSYCHPN ---
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 educated on: diagnosis and medication risk/benefits Guardian/Caregiver educated on: diagnosis and medication risk/benefits Reason for continued inpatient stay Substantial Risk for: med/psych decompensation Time Spent With Patient Time: Total time managing care of this patient today _30___ minutes.
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
[2025-08-24] MEDS: diazePAM 10 MG/2 ML CARTRIDGE IM (09:36)
[2025-08-24 09:37] VITALS: BP 122/76; PULSE 70; RESP 19; TEMP 36.4; O2SAT 95
[2025-08-24 10:00] VITALS: RESP 17
[2025-08-24 10:15] VITALS: RESP 17
[2025-08-24 10:30] VITALS: RESP 17
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
[2025-08-24 13:09] VITALS: BP 121/67; PULSE 72; RESP 16; TEMP 36.4; O2SAT 94
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
--- NOTE | 2025-08-24 15:19 | HO.BHRESTREX ---
Behavioral Restraint Exam Behavioral Health Restraint Exam Type of Restraint: Physical Hold, Medication and Mechanical Reason for Restraint: Substantial Risk and Substantial Risk of Harm to Others Medical Concerns for Restraint: No medical concerns, pt w/o acute inj / no noted resp/VS abnormalities Behavioral Assessment / Plan: Concerns / further recommendations, explain below: Comment: Pt continues on 2:1 safety checks.
[2025-08-24] MEDS: LORazepam 2 MG/ML VIAL IM (15:23)
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
[2025-08-24 20:00] VITALS: BP 122/67; PULSE 63; RESP 16; TEMP 36.3; O2SAT 98
--- NOTE | 2025-08-25 00:17 | PC.NURSE ---
pt declined evening meds despite multiple attempts to administer/encourage.
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
[2025-08-25 04:31] LABS: HBS Num1 0.00 mIU/mL (0-7.99); HBc Num1 0.06 S/CO (0.00-0.79); HBsAGNum1 0.25 S/CO (0.00-0.99); Hepatitis A Antibody IgM 0.17 Index (0-0.79); Hepatitis B Surface Antigen Negative (Negative); ~HepC Num1 0.05 S/CO (0.00-0.79); ~Hepatitis A Antibody IgM Nonreactive (Nonreactive); ~Hepatitis B Surface Antibody NONREACTIVE (Nonreactive); ~Hepatitis C Antibody Nonreactive (Nonreactive)
[2025-08-25 07:57] VITALS: BP 125/61; PULSE 96; RESP 16; TEMP 36.6; O2SAT 98
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
--- NOTE | 2025-08-25 13:43 | HO.BHRESTREX ---
Behavioral Restraint Exam Behavioral Health Restraint Exam Type of Restraint: Physical Hold, Medication and Mechanical Reason for Restraint: Substantial Risk and Substantial Risk of Harm to Others Medical Concerns for Restraint: No medical concerns, pt w/o acute inj / no noted resp/VS abnormalities Behavioral Assessment / Plan: Concerns / further recommendations, explain below: Comment: Continues on 2:1 safety checks.
[2025-08-25 13:45] VITALS: BP 113/70; PULSE 82; RESP 19; TEMP 36.9; O2SAT 98
[2025-08-25] MEDS: diazePAM 10 MG/2 ML CARTRIDGE IM (13:51)
[2025-08-25 14:00] VITALS: BP 122/56; PULSE 84; RESP 17; TEMP 36.7; O2SAT 97
[2025-08-25 14:15] VITALS: BP 118/58; PULSE 77; RESP 15; TEMP 36.8; O2SAT 98
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
[2025-08-25 14:30] VITALS: BP 126/59; PULSE 67; RESP 15; TEMP 36.7; O2SAT 98
[2025-08-26 08:11] VITALS: RESP 18
--- NOTE | 2025-08-26 10:09 | PC.NURSE ---
Laura declined morning [place] despite education and encouragement. She also declined vital signs. Dr. Head notified via [employer]Quan.
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
[2025-08-26 20:00] VITALS: BP 121/75; PULSE 85; RESP 16; TEMP 36.8; O2SAT 97
--- NOTE | 2025-08-26 21:58 | PC.NURSE ---
Pt offered all hs meds. Pt refused all meds except the lorazepam 1mg. Pt took lorazepam pill stating she would take it then bit it in half, stating she did not want to be too sedated. Refused whole dose. This RN stayed in pt room for 10 minutes so certain she swallowed the medication.
--- NOTE | 2025-08-27 06:56 | PC.NURSE ---
Addendum entered by Krupa Farris RN 08/27/25 07:09: This flight was scheduled to go to [place]. Original Note: Phone call received at nurses station this AM from [employer]. Company states that they received a reservation for [facility] for 12 FC seats and were instructed to call customer back and were looking for payment.
[2025-08-27 09:07] VITALS: BP 137/78; PULSE 81; RESP 16; TEMP 36.6; O2SAT 95
[2025-08-27 19:12] VITALS: BP 130/64; PULSE 67; RESP 16; TEMP 36.6; O2SAT 98
--- NOTE | 2025-08-27 20:00 | HO.PSYCHPN ---
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 patient today __35__ minutes.
[2025-08-28 09:11] VITALS: BP 145/83; PULSE 88; RESP 16; TEMP 36.9; O2SAT 96
--- NOTE | 2025-08-28 15:46 | P.PNPSI_ITS ---
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 yesterday. staff reporting more delusional material today. remains in behavioral control, however. change ativan 0.5 PRNs to Q4H. pt refusing all other meds. MD encouraged compliance with lithium. Reason for continued inpatient stay Substantial Risk for: harm to others, inability to function and rapid decompensation Time Spent With Patient Time: Total time managing care of this patient today _25___ minutes.
[2025-08-28 19:43] VITALS: BP 125/60; PULSE 70; RESP 16; TEMP 36.5; O2SAT 99
[2025-08-29 03:26] VITALS: BP 114/80
[2025-08-29] MEDS: Milk of Magnesia 30 ML ORAL.SUSP PO (04:59)
[2025-08-29 07:50] VITALS: BP 109/66; PULSE 58; RESP 16; TEMP 36.5; O2SAT 97
--- NOTE | 2025-08-29 11:33 | P.PNPSI_ITS ---
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 compliance with lithium. 08/29: Continues on 1:1. Disorganized. Circumstantial. Rapid speech. Believes she gained weight after taking a dose of [place]. Pt stated, If I take [place], I will gain weight overnight . Per nursing, slept 1-2 hours last night. Grandiose; stating she has galindo on my feet like [place] . Rambling. Observed multiple belongings layed out on floor in pt's room. Patient educated on: diagnosis and medication risk/benefits Reason for continued inpatient stay Substantial Risk for: med/psych decompensation Time Spent With Patient Time: Total time managing care of this patient today _20___ minutes.
[2025-08-29 18:08] VITALS: BP 150/80
[2025-08-29 20:20] VITALS: BP 112/70; PULSE 59; RESP 17; TEMP 36.4; O2SAT 99
[2025-08-30 07:45] VITALS: BP 133/78; PULSE 74; RESP 20; TEMP 36.4; O2SAT 98
--- NOTE | 2025-08-30 12:16 | MHC.CLN ---
CONSULT PT REQUESTING HIGH PROTEIN LOW CARB DIET HT 65 WT 159# BMI 26.1 PT IS 127% IBW INDICATES OVER WT FOR HT CURRENT WT 72KG (08/18/25) PREVIOUS WT 70.3KG (08/11/25) PT UP 4# X7 DAYS-NOTED MODERATE EDEMA PER NSG ON 08/29/25 MAY BE CONTRIBUTOR TO WT GAIN PT STATED SHE BELIEVES SHE GAINED WT AFTER TAKING A DOSE OF LITHIUM ALTHOUGH, LITHIUM SIDE EFFECTS ARE WEIGHT GAIN AND INCREASED APPETITE PT IS NOW REFUSING MOST PSYCH MEDICATIONS INCLUDING LITHIUM REGULAR DIET IN PLACE CURRENTLY REVIEWED LABS-UNREMARKABLE RECOMMEND 1500DM DIET TO PROMOTE SLOW WT LOSS-PROVIDER CAN CHANGE DIET IF NEEDED DO NOT RECOMMEND WT LOSS PLAN WHILE IN PT PSYCH PT PRESENTING DISORGANIZED WITH RAPID SPEECH, ERRATIC BEHAVIOR WITH POOR SLEEP AND MEDICATION NONCOMPLIANCE QUESTION PT DIET COMPLIANCE GIVEN UNSTABLE PSYCH BEHAVIORS AND POOR INSIGHT INTO SITUATION MONITOR PO INTAKE WITH WEEKLY WEIGHT
--- NOTE | 2025-08-30 13:32 | HO.PSYCHPN ---
Subjective Subjective Date of Service: 08/30/25 Reason For Visit: Manic behavior - Decomp Subjective Notes: Conditional Voluntary (CV by HCP) Healthcare Proxy: Yes Guardianship: No Medical Problems Affecting Mental Status: No Interim History: Medical record and nursing notes reviewed; case discussed during rounds with team/nursing staff, and met with patient for supportive therapy/psychoeducation, as well as medication management. Meet with patient in room, patient agrees with medication plan to increase Mcallen up to total 900mg/day in divided dose and will get level in 5 days. She was notitifed that Naproxin was discontinued as she should not take it with Mcallen. Patient is receptive and knowledgeable regarding this. C/o dry mouth as side effects of medication which Saliva spray ordered PRN with nutrition consult placed regarding weight gain. Patient is receptive. Patient wears the pants that to small to button up. Pull the pants down to show this provider how much weight she gains even though saying that she has been lost 10lbs. Tangential, hyerpvernal in normal volume, more organized that she was a week or two ago. Refused Trileptal but took Mcallen yesterday and this morning. Remain on -. Per treatment team, court today regarding Affirm HCP. Remain on 12-01. Medication Compliance: No Side effects from medications: No Attending Groups: Intermittent Review of Systems Acute medical concerns: No Medical Review of Systems: unchanged Review of Systems Review of Systems Constitutional: Denies fatigue and Denies fever(s) Cardiovascular: Denies chest pain and Denies dyspnea Respiratory: Denies dyspnea Gastrointestinal: Denies abdominal pain Psychiatric: denies suicidal ideation Endocrine: Denies fatigue Edema on bilateral ankles which is improving. Yes all other systems are reviewed and are negative Mental Status Exam Mental Status Exam Narrative: No ADL's issues, showered, Speech is normal volume, rapid, not pressured. rambling. circumstantial, tangential, less disorganized, grandiose. do not express SI/HI/VH/AH. Can present with false fixed believe. She believes lithium made her gain too much weight after 1-2 doses and go from size 6- size 12 of the pants. Poor judgment and insight. Diagnostics Vital Signs (24Hr): Vital Signs - 24 hr 08/29/25 18:08 08/29/25 20:20 08/30/25 07:45 Temperature 97.5 F 97.6 F Pulse Rate 59 74 Respiratory Rate 17 20 Blood Pressure 150/80 H 112/70 133/78 Pulse Oximetry 99 98 Oxygen Delivery Method Room Air Room Air BMI result Body Mass Index 26.1 Labs 08/23/25 11:07 08/23/25 11:06 Medications Medications Current Medications Acetaminophen (Acetaminophen 325 Mg Tablet) 650 mg PO Q6H PRN PRN Reason: Headache/Pain, Scale 1-10 Last Admin: 08/25/25 14:12 Dose: 650 mg Al Hydroxide/Mg Hydroxide (Magnesium Hydrox/Alum Hydrox 30 Ml Oral.Susp) 30 ml PO Q6H PRN PRN Reason: Heartburn/Nausea Capsaicin (Capsaicin 0.025% Cream 60 Gm Tube) 1 appl TOPICAL TID PRN; Protocol PRN Reason: Pain, Mild (Pain Scale 1-3) Last Admin: 08/25/25 14:12 Dose: 1 appl Clonidine HCl (Clonidine Hcl 0.1 Mg Tablet) 0.1 mg PO Q6H PRN; Protocol PRN Reason: anxiety/agitation Last Admin: 08/29/25 18:08 Dose: 0.1 mg Docusate Sodium (Docusate Sodium 100 Mg Capsule) 100 mg PO BID PRN PRN Reason: Constipation Last Admin: 08/17/25 22:23 Dose: 100 mg Hydroxyzine HCl (Hydroxyzine Hcl 25 Mg Tablet) 25 mg PO Q6H PRN PRN Reason: mild anxiety Last Admin: 08/21/25 23:45 Dose: 25 mg Mcallen Carbonate (Mcallen Carbonate 300 Mg Capsule) 300 mg PO DAILY STUART Mcallen Carbonate (Mcallen Carbonate 300 Mg Tablet) 600 mg PO BEDTIME STUART Lorazepam (Lorazepam 0.5 Mg Tablet) 0.5 mg PO Q4H PRN PRN Reason: severe anxiety Last Admin: 08/30/25 03:30 Dose: 0.5 mg Magnesium Hydroxide (Milk Of Magnesia 30 Ml Oral.Susp) 30 ml PO DAILY PRN PRN Reason: Constipation Last Admin: 08/29/25 04:59 Dose: 30 ml Magnesium Oxide (Magnesium Oxide 400 Mg Tablet) 400 mg PO BEDTIME STUART Last Admin: 08/29/25 20:57 Dose: 400 mg Olanzapine (Olanzapine 5 Mg Tablet) 5 mg PO Q4H PRN PRN Reason: agitation Oxcarbazepine (Oxcarbazepine 300 Mg Tablet) 600 mg PO BEDTIME STUART Last Admin: 08/29/25 20:59 Dose: Not Given Quetiapine Fumarate (Quetiapine Fumarate 25 Mg Tablet) 12.5 mg PO BID PRN PRN Reason: agitation/severe anxiety Last Admin: 08/30/25 03:29 Dose: 12.5 mg Quetiapine Fumarate (Quetiapine Fumarate 25 Mg Tablet) 75 mg PO BEDTIME STUART Last Admin: 08/29/25 23:03 Dose: 75 mg Saliva Substitute (Dry Mouth Lynwood 60 Ml Lynwood) 1 spray MUCOUS MEM Q2H PRN PRN Reason: dry mouth Allergies Allergies Allergy/AdvReac Type Severity Reaction Status Date / Time No Known Allergies Allergy Verified 08/09/25 21:18 Assessment & Plan Assessment & Plan (1) Bipolar disorder with severe krista: Status: Acute Code(s): F31.13 - Bipolar disorder, current episode manic without psychotic features, severe (2) PTSD (post-traumatic stress disorder): Status: Acute Code(s): F43.10 - Post-traumatic stress disorder, unspecified Plan Patient is a 59 y.o divorce Maltese speaking female with past medical and psychiatric history of bipolar, PTSD, arithritist, osteoporosis referred to [facility] from [facility]. Patient presented to ED from home on 08/08/2025. She call 911 for wellness checks after and her best friend as her to get herself evaluated with concerns for her safety and mental status. Patient has been acting erratic, not sleeping, moving stuff around in her home 23/06, driving recklessly at high speed, texting threats to her partner, calling her partner's customers, and employees with threats. Formulation/clinical reasoning: ? If medication compliant, increase in manic behavior, paranoid/delusional. History of PTSD, bipolar. Was recently discharged at the beginning of the month from psychiatric hospital when she was not stable. Patient presented with manic behaviors that put herself at risk for safety. We will continue to monitor, medication adjustment, and provide therapeutic environment and groups for coping skills. We will refer patient back to outpatient psychiatric services and therapist for aftercare Plan: Patient on 15 minute checks for safety. Admitted to . . Signed another 3 day notice up on 08/18/25- Patient would be a good candidate for civil commitment. Work with treatment team to do collateral and FLU appointments for aftercare. Spoke with Paul- Son at [phone]. Will touch base with him again next day as d/t the bad/weak phone signal, not able to complete the update. Contact the hospitalist regarding hospitalist consultation on admission: seen by Hospitalist on 08/10/25. 08/10/25: Continue Lamictal 75 mg daily for mood. Trileptal 300 twice a day for mood. Seroquel 75 mg at bedtime for insomnia/mood 12.5 mg b.i.d. p.r.n. for agitation or severe anxiety. Perphenazine 2 mg p.r.n. at bedtime. Naproxen 500 b.i.d. p.r.n. arthritis. Trazodone as needed for insomnia. 08/11/25: Patient slept for 6 hours with restless sleep. Per nursing, patient appeared to be confused after taking trazodone. Patient give me the scenarios what was happening at night and she able to recall what she did during the night. She said is not confused, but she should take low dose of trazodone instead. Per record, she was given trazodone with the hydroxyzine and naproxen at around 01:26 in the morning. She remembers she was eating the cookie and milk and waking up crumbs and paper on her body. Advised patient not to combine them. Trazodone is now discontinued. We will revisit if patient needs it. Patient is tangential, very hyperverbal, sometimes not able to stay in the topic. Continue to perseveration on current boyfriend. She also would like to send her phone to the police where they can check the evidence of videos and screen shots as evidence for suspecting the boyfriend or some stranger being around in the house. She also asked what she should do, or should she file restraining order against her boyfriend. Some what her best friend told her that she may have psychosis break. Patient was advised to not making any big decision that could make her feel regret later on when she gets better as for now she is not stable enough. Patient also confused with the 3 day notice, to different staff to confirmed that she signed a 3 days on the day she came in which she did it with me yesterday. If she continues to improve, we will most likely to discharge on Friday. However, it is too early to decide if she is could be stable by that time. She is pleasant, anxious, but cooperative. Continue sharing a long story about her life. She verbally love this provider to call her son Paul at [phone] who called to the public health social worker left voice message saying that he is a healthcare proxy, and power of employment law attorney of his mom. Called Paul the above number, left voice message, with a number to call back. Waiting for response. Armen called back, was in the middle of conversation but was not having good signal. Therefore, will touch base with him another time. Per Armen, his mom basiclly comes to hospital and have episode once yearl. Regarding meds, Armen said it is in a black hole as no one is sure if his mom is compliant with meds or not. He also reports that the paranoid regarding his mom's boyfriend is not reality based. Update Paul with current manic behaviors and possible paranoid thoughts regarding her boyfriend but not about other stuff/other people. Discontinue Trazodone. Will revisit. Increase Lacmital up to 100mg daily in the morning. 08/12/25: Patient only slept 3-1/2 hours, medication compliant. However, per nursing and and other disciplines report, patient appeared to be more manic today. Not able to stay in a topic. Disorganized, but pleasant and cooperative. She appears to be very busy on the phone all day long today in between groups. Patient agrees if she is not getting better by Friday she can stay a little bit longer than Friday. Discussed with patient regarding medication plan. Patient does not agree with the Seroquel increased up to 100 tonight but agrees with adding melatonin and trazodone as needed-25 mg only p.r.n.. She agreed that by tomorrow if she is still not able to sleep, Seroquel up to 100 mg. Reports constipated, and agreed to take Colace twice a day. Appears to have increased appetite, appeared to be tired today, but not resting, racing thoughts, tried to organize the stuff at home from here via phone. Patient continued to believe that the medial she has is evidence of the boyfriend someone did something make her be in danger. Melatonin 6 mg scheduled at bed. Trazodone 25 mg p.r.n. for insomnia. Colace 100 b.i.d. for constipation 08/13/25: Sleep improved- slept for 6 hours last night. Compliant with meds, denies side effects. She loves Melatonin that started last night. Patient agrees to have Trileptal increased up to total of 900mg/daily in divided dose. Review possible side effects of hyponatremia. Check CMP to get another baseline. Hyperverbal pleasant, mild anxiety, more organized that yesterday but appears to restless, not resting, keep herself very busy all day to the point that she states she does not have time to shower today yet. Discuss with patient regarding manic behaviors. Patient does not think she is manic and says it is her baseline. Patient may retract 3 day for further treatment time and medication management. No SI/SIB/HI/AVH. Perseveration on unsafe behavior on boyfriend which could be from her paranoid. Other than that, patient has not made any paranoid/delusions Trileptal 300mg daily in the morning and increase HS dose to 600mg for mood. CMP for 08/14/25. 08/14/25: Patient slept for 7 hours, compliant with medications. No side effects noted, what her blood pressure elevated yesterday, worse even clonidine 0.2 with good effect. Nursing reported the patient called the police, police called to the nurse station to make sure we do not have her call again. Patient continued to have a verbal, tangential, appeared hoarding food. Anxious, keep busy all day long with activities, not rested. She does not want to retracted 3 day today, but will think about that in the morning. No safety concern expressed except for calling the police yesterday. She is visible and attended groups, pleasant to talk to. Sodium is within limit. slightly elevated on liver function. Low on protein. 08/15/25: Patient did not slept last night, only slept fully 45 minutes. She keeps herself busy all day long with lots of ideas, on the phone a lot, not resting, she hoarding food in her room. Hyper verbal, tangential which got worse. She make unreasonable decision, giving personal phone number of family to one of the patients to call, continued to paranoid regarding the boyfriend and exhusband. She became more argumentative, not usually normal pleasant her during one-to-one assessment. Poor insight and poor judgment- letting stranger in the house. continue to perceive that she is not manic, and stated that this is her normal. Per nursing, and public health social worker, patient got worse the past 2 days. She is not sleeping but do not appeared to be tired, increasing in irritable and anxiety mood. Discussed with patient regarding medication plan which patient does not agree with. She does not want any medication changes, in fact reports that Lamictal increased make her med more manic. She was inform the medication changes: Lamictal up to 150 mg, Trileptal up to total of 1200 mg in divided dose, Seroquel increased up to 100 mg at bedtime. Ativan 0.5 t.i.d., plus 1 mg t.i.d. p.r.n. for severe anxiety. Patient states that she will not take medication with those increase. Patient advised to take medication as recommended. She agreed to retracted 3 day, requests to see if she can be evaluated tonight to release/discharge. Informed that she will not be discharged today, she asked if she can retract insight another 3 day. This provider informed the patient that if she plans to sign another 3 day we may not let her retract but file on her instead. In the moment, she agrees that she will stay here to complete the treatment as long as needed. However, she signed the 3 day again in the afternoon, after this provider inform her about medication changes. She does not let this provider talked to her friend -Ravinder patient think Alexandro was affected by her boyfriend. She also paranoid about her ex . She now only just the neighbor, and want the neighbor to involve in the the family meeting that she requests. Call her outpatient provider Dr. Chris Maldonado at [phone]- lvm with a call back. 08/16/25: Patient slept for 8 hours last night, was selective to what dose of medication she wants to take as she does not agree with the medication change yesterday. Do not want to take the Ativan. Discussed with patient regarding lithium. Patient do not want to start on lithium. Reports history of weight gain 40 lb, edema, fluid retention, and have some kidney issues. Patient admitted that it was helpful with her mood, she does not want to do with any side effects if we have to start it again. She also reports history of Depakote 25 years ago, but do not remember the side effects. She does not want to start on Depakote neither. Patient needle she with asking Seroquel to go down to 50 if we increase the Trileptal dose at bedtime. Advised patient continue with the same dose, with increase 900 of Trileptal at bedtime to see how she feels after tonight dose. We will not change/all lowered down on Seroquel. She also advised not to order anything to deliver to [facility]. She asked if she can order some art stuff , for people here and for herself to work on why she is here. She also reported that she have no close and have no bras, she had to wear three layers on the topx. When being told that she can not order stuff to delivered here, she states that another patient was allowed to order some clothes. She also pointed out does no written policy about it. Hyperverbal, tangential, but able to stay in topic during one-to-one assessment. She continued to have poor insight and poor judgment, do not believe she is manic, she rationale for or her hyperverbal and tangential is her normal this is not manic . Per nursing, patient does not like the way we using hyperverbal or tangential to prescribed her behavior. Some mild edema observed on bilateral ankles. We will continue to monitor. Continue with Trileptal current dose which was increased yesterday but she did not take new dose Agree to take it higher dose at night start tonight. Taper down on Lamictal- Per OP provider, patient would be manic on high dose. Continue with Seroquel 75mg at HS. Do not want to take Mcallen d/t side effects from past experience. Collateral: 08/16/25: Spoke with Dr. Chris Maldonado (outpatient provider Dr. Chris Maldonado at [phone]): Dr. Maldonado thinks we should limit her phone calls. Dr Maldonado stressed that patient should be on lithium, knowing some slightly elevated on TSH. He added, elevated we can start on thyroid medication to treat it. Dr. Maldonado said patient appeared to be more manic on higher dose of Lamictal which he was trying to take per it down. Dr. Maldonado was informed the current mental status of the patient, manic, hyperverbal, paranoid. 08/17: 3 day notice up 08/18/25; pt reports she is considering retracting 3 day notice tomorrow. Active on unit. Intrusive. Rapid speech. Rambling at times. Flight of ideas. Circumstantial. Perseverative regarding her ex- and ex-boyfriend. Presents with poor insight into behaviors prior to admission and while on the unit. She is requesting to have Seroquel decreased to 75mg d/t feeling over-sedated; Seroquel decreased to 75mg PO bedtime. Patient also requested to have Ativan discontinued d/t reporting she feels she does not need it ; DC Ativan. T/W continuously educated patient regarding mood stabilizers, dosages and possible side effects. Patient reports she knows that lithium worked best for her however, is concerned about gaining weight and other possible side effects. After further discussion, patient agreed to starting Mcallen 300mg PO BID. T/W obtained collateral from patient's ex-, Stephan Carroll, who reports he has known pt since they were 16 years old and is still in contact with pt. He reports patient has done best on lithium however does not like taking it due to weight gain. He reports concern due to patient calling her director financial analysis while she is hospitalized, saying she would like to spend 1.7 million to trying purchase her ex-boyfriend's business . T/W also obtain collateral from patient's friend, Alexandro, who reports concerns regarding patient's safety due to patient inviting a woman she met a month ago at [employer] to come live with her along with her 2 kids . She reports security camera showing people leaving in and out of the home at different times of the day. Alexandro states she is worried patient will be taken advantage of due to being well to do . Patient's ex-boyfriend, Cal Wetzel, contacted T/W; Mr. Wetzel was informed there was not a release of information and T/W was not able to discuss patient's status or treatment plan. Mr. Wetzel stated he wanted to relay information regarding patient. He stated he moved out of the house today d/t patient threatening she will start a war and shantelle him . He is worried she is being scammed by the people who are moving in and out of her home. Mr. Wetzel reports, patient called the SODA CLERK of his company and told them he is a serial killer and has been contacting his employees and stating the same . This typewriters functional tester called patient's outpatient psychiatrist, Dr. Maldonado; awaiting callback. 08/18: Patient continues to present similar to yesterday. intrusive in other pt's treatment. Talking over T/W during assessment and not allowing for back and forth conversation. Rapid speech. Rambling at times. Flight of ideas. Circumstantial. Perseverative regarding her ex- and ex-boyfriend. T/W met with pt to discuss treatment plan and if she would retract 3 day notice; pt declined and she was informed she would be filed on.Patient compliant with HS Mcallen dose, however continues to refuse AM dose despite education of importance regarding medication compliance. Per nursing notes, pt calling police department multiple times last evening; police asked nursing to have pt stop calling. pt slept 3.5 hours last night; encouraged to take Ativan PRN to help with sleep. 08/19: Placed on 1:1 d/t being intrusive with other patients; walking into other patients visits with family. Continues to talk over T/W. Rapid speech. Flight of ideas. Circumstantial. Observed placing all of her belongings and various items on her bedroom floor in a line around her room; multiple piles of items on her bed and in bags. Patient stated, I called the [facility]. I'm waiting for them to return my call. They are going to do a story and expose everyone in this hospital. I want all the footage. They said they are going to send an investigative team to talk to me. I know you and Lien care about me and get me. Thank you for giving me a body guard . Pt declined HS lithium last evening; encouraged to take Mcallen when prescribed. per nursing, slept 3.5 hours last night; woke up and began yelling at nursing staff; please see nursing notes. Patient notified of court hearing on 08/25/25. 08/20: Continue current management and treatment plan. Encourage adherence. 08/21: continue current management and treatment plan. Education and continue to encourage adherence. Ordered Trileptal 300 mg BID instead of 300 mg and 900 mg. Hopefully patient will be more consistent with Mcallen 300 mg and agree to BID. Continue Seroquel 75 mg and Lamictal 50 mg. 08/22:Intrusive; touching patients and staff. unable to be redirected. Rapid speech. Flight of ideas. Disorganized. Per nursing, slept 2 hours last night. Patient presents with auditory hallucinations; observed responding to internal stimuli; believes she is speaking with her son, Robert. Pt stated, Robert, do you know how to ride a motorcycle? Are we going to [place]? I can't see you Erick but I know you're here . Pt began looking around unit for her son Robert. Patient was told multiple times her sons were not on the unit. Singing loudly at times about various topics. Focused on mental health counselor, Alfonzo, who she believes is renting a room from her. Patient took AM Mcallen with encouragement. She declined PRN Zyprexa and Ativan; staff expressed concern to patient regarding her behavior and possibly putting herself in danger d/t peers becoming upset with her d/t patients intrusiveness. At 1340, YARY Monge, contacted T/W and requested medication restraint d/t patient throwing items at staff and attempting to strike her 1:1 sitter. Haldol 5mg IM Stat, Valium 5mg IM Stat and Benadryl 50mg IM stat were ordered. Nursing to monitor. 08/23: Intrusive; touching patients and staff. unable to be redirected. Disorganized. Pt placed on 2:1 safety checks d/t need for constant redirection and intrusiveness. Declined AM medications. Patient was able to sleep 8 hours d/t multiple medications administered yesterday from restraints. Patient attempting to leave bedroom today without pants or undergarments. Screaming loudly at times. Putting herself on the floor and acting out making snow angels. Selectively mute today, using hand gestures to communicate. DC lamictal DC melatonin Decrease Triletptal to 600mg PO bedtime with plan to taper off. Obtain labs. T/W spoke with patient's outpatient psychiatrist, Dr. Maldonado, who reviewed past medications trials: Depakote, Lamictal, Trilafon, Caplyta, Latuda, Seroquel, Risperidal, Zyprexa. Dr. Maldonado stated he believes patient would benefit from being on Mcallen . At 1040, YARY Costa, notified T/W, patient spit in RN's face after RN was attempting to administer medications. Haldol 10mg IM Stat, Valium 10mg IM Stat and Benadryl 50mg IM Stat were ordered. Nursing to monitor. 08/24: Intrusive; touching staff inappropriately.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
[2025-08-30 21:30] VITALS: BP 141/84; PULSE 69; RESP 17; TEMP 36.6; O2SAT 97
[2025-08-30 23:07] VITALS: BP 159/73; PULSE 77; O2SAT 98
[2025-08-30] MEDS: Mag&Al/Sim/Diphenhyd/Lidocaine 10 ML ORAL.SUSP PO (23:49)
[2025-08-31 07:46] VITALS: BP 125/72; PULSE 75; RESP 16; TEMP 36.3; O2SAT 97
[2025-08-31] MEDS: Dry Mouth Spray 60 ML SPRAY 1 SPRAY MUCOUS MEM (09:08)
[2025-08-31] MEDS: Mag&Al/Sim/Diphenhyd/Lidocaine 10 ML ORAL.SUSP PO ×3 (13:39→23:41)
--- NOTE | 2025-08-31 16:23 | HO.PSYCHPN ---
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 unable to process information marked disorganization paperwork filled out regarding affirming hcp pt severely manic psychotic T Elena OSORIO 08/27: improved today. very talkative and intrusive but not touching others or behaviorally problematic. restart clonidine PRN and change ativan PRNs to be 0.5 mg each. change to 1:1. 08/28: similar to yesterday. staff reporting more delusional material today. remains in behavioral control, however. change ativan 0.5 PRNs to Q4H. pt refusing all other meds. MD encouraged compliance with lithium. 08/29: Continues on 1:1. Disorganized. Circumstantial. Rapid speech. Believes she gained weight after taking a dose of Ballantine. Pt stated, If I take Ballantine, I will gain weight overnight . Per nursing, slept 1-2 hours last night. Grandiose; stating she has galindo on my feet like [place] . Rambling. Observed multiple belongings layed out on floor in pt's room. 08/30/25: Meet with patient in room, patient agrees with medication plan to increase Ballantine up to total 900mg/day in divided dose and will get level in 5 days. She was notitifed that Naproxin was discontinued as she should not take it with Ballantine. Patient is receptive and knowledgeable regarding this. C/o dry mouth as side effects of medication which Saliva spray ordered PRN with nutrition consult placed regarding weight gain. Patient is receptive. Patient wears the pants that to small to button up. Pull the pants down to show this provider how much weight she gains even though saying that she has been lost 10lbs. Tangential, hyerpvernal in normal volume, more organized than she was a week or two ago when this provider last seen her. Refused Trileptal but took Ballantine yesterday and this morning. Remain on 12-01. Per treatment team, court today regarding Affirm HCP. Remain on 12-01. Patient did not sleep last night, took Ativan and Seroquel 12.5mg PRN at around 0300. Bilateral ankle edema appears to improve compare to the past. 08/31: Active on unit. continues on 1:1. Awaiting on court documents stating affirming of HCP. Patient continues with rapid speech, hyperverbal. Circumstantial. Flight of ideas. Focused on ex- and ex-partner; believes she is in danger from her ex-boyfriend. Pt stated, How does he know where I am? ; pt was reminded she has contacted him multiple times from the unit phone. Pt talking over T/W, continuously interrupting. medication compliant last evening and this morning; encouraged to continue being medication compliant. Patient was informed HCP was affirmed. Continue tx plan. Patient educated on: diagnosis and medication risk/benefits Reason for continued inpatient stay Substantial Risk for: med/psych decompensation Time Spent With Patient Time: Total time managing care of this patient today _20___ minutes.
[2025-08-31 20:05] VITALS: BP 125/83; PULSE 65; RESP 16; TEMP 36.9; O2SAT 98
[2025-09-01 02:31] VITALS: BP 110/66
[2025-09-01] MEDS: Dry Mouth Spray 60 ML SPRAY 1 SPRAY MUCOUS MEM ×2 (02:39→06:41)
[2025-09-01 07:00] VITALS: BMI 25.7
[2025-09-01 07:39] VITALS: BP 117/74; PULSE 66; RESP 16; TEMP 36.7; O2SAT 98
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
[2025-09-01 09:18] VITALS: BP 119/78
--- NOTE | 2025-09-01 16:08 | PM.EVENT ---
Event Note Date of Service: 09/01/25 Event Note: Per psych provider patient is reporting a tongue coating. She also has evidence of canker sore in the right side of her mouth. No lymphadenopathy, lungs are clear. She denies any pain in her throat, denies any difficulty swallowing, we will treat with nystatin swish and spit and monitor for improvement. Patient is also requesting a suppository x1. Time Spent With Patient Time: Total time managing care of this patient today ____ minutes.
[2025-09-01 18:39] LABS: MANUAL DIFF FLAG NO
[2025-09-01 18:41] LABS: Hematocrit 38.2 % (37.0-47.0); Hemoglobin 12.9 g/dl (12.0-16.0); Imm Gran Abs Auto 0.02 X10*3/uL (0.00-0.03); Imm Gran Pct Auto 0.3 % (0.0-0.4); Lymphocytes Absolute Auto 1.4 X10*3/uL (1.2-4.9); Mean Corpuscular HGB Conc 33.8 g/dl (31.0-35.0); Mean Corpuscular Hemoglobin 30.8 pg (27.0-33.0); Mean Corpuscular Volume 91.2 fL (80.0-98.0); NRBC Abs Auto 0.000 X10*3/uL (0.0-0.012); NRBC Pct Auto 0.0 /100WBC (0.0-0.2); Platelet Count 295 X10*3/uL (160-400); Red Blood Count 4.19 X10*6/uL (4.20-5.50); White Blood Count 6.9 X10*3/uL (4.8-10.8)
[2025-09-01 18:50] LABS: Lithium 0.50 mmol/L (0.60-1.20)
[2025-09-01 19:01] LABS: Anion Gap 12 (12-20); Blood Urea Nitrogen 21 mg/dL (9-16); Carbon Dioxide 27 mmol/L (22-29); Chloride 107 mmol/L (96-108); Creatinine Clr Calc Pharmacy 73.0; Estimated Glomerular Filt Rate > 60; Potassium 4.2 mmol/L (3.3-5.1); Sodium 142 mmol/L (135-145)
[2025-09-01 19:10] VITALS: BP 115/60; PULSE 70; RESP 16; TEMP 36.5; O2SAT 98
[2025-09-01] MEDS: Nystatin Oral Susp 500,000 UNIT/5 ML ORAL.SUSP 500000 UNIT PO (22:45)
[2025-09-02 01:50] VITALS: BP 135/87
[2025-09-02] MEDS: Mag&Al/Sim/Diphenhyd/Lidocaine 10 ML ORAL.SUSP PO (02:14)
[2025-09-02 06:56] LABS: Hemoglobin A1C 121.1582 umol/L; Total Hemoglobin (HGBA1C) 3362.4814 umol/L
--- NOTE | 2025-09-02 08:46 | HO.PSYCHPN ---
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 invoked. Awaiting court hearing to affirm HCP. Pt seen chart reviewed pt unable to process information marked disorganization paperwork filled out regarding affirming hcp pt severely manic psychotic Bishnu Parker MD 08/27: improved today. very talkative and intrusive but not touching others or behaviorally problematic. restart clonidine PRN and change ativan PRNs to be 0.5 mg each. change to 1:1. 08/28: similar to yesterday. staff reporting more delusional material today. remains in behavioral control, however. change ativan 0.5 PRNs to Q4H. pt refusing all other meds. encouraged compliance with lithium. 08/29: Continues on 1:1. Disorganized. Circumstantial. Rapid speech. Believes she gained weight after taking a dose of [place]. Pt stated, If I take [place], I will gain weight overnight . Per nursing, slept 1-2 hours last night. Grandiose; stating she has galindo on my feet like [place] . Rambling. Observed multiple belongings layed out on floor in pt's room. 08/30/25: Meet with patient in room, patient agrees with medication plan to increase [place] up to total 900mg/day in divided dose and will get level in 5 days. She was notitifed that Naproxin was discontinued as she should not take it with [place]. Patient is receptive and knowledgeable regarding this. C/o dry mouth as side effects of medication which Saliva spray ordered PRN with nutrition consult placed regarding weight gain. Patient is receptive. Patient wears the pants that to small to button up. Pull the pants down to show this provider how much weight she gains even though saying that she has been lost 10lbs. Tangential, hyerpvernal in normal volume, more organized than she was a week or two ago when this provider last seen her. Refused Trileptal but took [place] yesterday and this morning. Remain on 12-01. Per treatment team, court today regarding Affirm HCP. Remain on 12-01. Patient did not sleep last night, took Ativan and Seroquel 12.5mg PRN at around 0300. Bilateral ankle edema appears to improve compare to the past. 08/31: Active on unit. continues on 1:1. Awaiting on court documents stating affirming of HCP. Patient continues with rapid speech, hyperverbal. Circumstantial. Flight of ideas. Focused on ex- and ex-partner; believes she is in danger from her ex-boyfriend. Pt stated, How does he know where I am? ; pt was reminded she has contacted him multiple times from the unit phone. Pt talking over T/W, continuously interrupting. medication compliant last evening and this morning; encouraged to continue being medication compliant. Patient was informed HCP was affirmed. Continue tx plan. 09/01: Active on unit. continues on 1:1. medication compliant. Patient continues with rapid speech, hyperverbal. Circumstantial. Flight of ideas. Appears slowed today from previous days. Showered. Per nursing, pt slept 2 hours last night. Hospital received court documents of HCP affirmed; pt notified. Magnesium citrate ordered to help with bowel movement. [place] changed from BID to [place] ER 900mg PO bedtime. Changing to once of day to assist with medication compliance. Trileptal decreased to 300mg PO bedtime; plan to taper off. DC Seroquel; does not seem to be helping with mood. Start: Klonopin 1mg PO bedtime to help with sleep. Thorazine 25mg PO TID PRN agitation/anxiety/psychosis Thorazine 25mg IM bedtime PRN if pt refuses [place] PO; reviewed with HCP and agreed to treatment plan; pt aware. T/W spoke with patient's HCP via phone. Informed consent received from HCP, Paul Carroll, regarding treatment plan. 09/02: Continues on 1:1. medication compliant. Patient reports she had a bowel movement yesterday. Patient continues with rapid speech, hyperverbal. Circumstantial. Flight of ideas. Difficult to follow conversation. Per nursing, pt slept 4 hours last night. Continue tx plan. Patient educated on: diagnosis and medication risk/benefits Reason for continued inpatient stay Substantial Risk for: med/psych decompensation Time Spent With Patient Time: Total time managing care of this patient today __20__ minutes.
[2025-09-02] MEDS: Nystatin Oral Susp 500,000 UNIT/5 ML ORAL.SUSP 500000 UNIT PO ×4 (09:23→21:21)
[2025-09-02 20:00] VITALS: BP 110/71; PULSE 65; RESP 18; TEMP 36.4; O2SAT 99
[2025-09-03 01:57] VITALS: BP 101/61
[2025-09-03] MEDS: Mag&Al/Sim/Diphenhyd/Lidocaine 10 ML ORAL.SUSP PO (01:57)
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
[2025-09-03 08:13] VITALS: BP 141/70; PULSE 70; RESP 18; TEMP 36.6; O2SAT 99
[2025-09-03] MEDS: Nystatin Oral Susp 500,000 UNIT/5 ML ORAL.SUSP 500000 UNIT PO ×4 (09:22→20:19)
[2025-09-03 20:00] VITALS: BP 128/70; PULSE 60; RESP 16; TEMP 36.5; O2SAT 99
[2025-09-04] MEDS: Nystatin Oral Susp 500,000 UNIT/5 ML ORAL.SUSP 500000 UNIT PO ×4 (08:35→21:27)
--- NOTE | 2025-09-04 11:00 | HO.PSYCHPN ---
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 psychotic Bishnu Parker MD 08/27: improved today. very talkative and intrusive but not touching others or behaviorally problematic. restart clonidine PRN and change ativan PRNs to be 0.5 mg each. change to 1:1. 08/28: similar to yesterday. staff reporting more delusional material today. remains in behavioral control, however. change ativan 0.5 PRNs to Q4H. pt refusing all other meds. encouraged compliance with lithium. 08/29: Continues on 1:1. Disorganized. Circumstantial. Rapid speech. Believes she gained weight after taking a dose of Encinal. Pt stated, If I take Encinal, I will gain weight overnight . Per nursing, slept 1-2 hours last night. Grandiose; stating she has galindo on my feet like [place] . Rambling. Observed multiple belongings layed out on floor in pt's room. 08/30/25: Meet with patient in room, patient agrees with medication plan to increase Encinal up to total 900mg/day in divided dose and will get level in 5 days. She was notitifed that Naproxin was discontinued as she should not take it with Encinal. Patient is receptive and knowledgeable regarding this. C/o dry mouth as side effects of medication which Saliva spray ordered PRN with nutrition consult placed regarding weight gain. Patient is receptive. Patient wears the pants that to small to button up. Pull the pants down to show this provider how much weight she gains even though saying that she has been lost 10lbs. Tangential, hyerpvernal in normal volume, more organized than she was a week or two ago when this provider last seen her. Refused Trileptal but took Encinal yesterday and this morning. Remain on 12-01. Per treatment team, court today regarding Affirm HCP. Remain on 12-01. Patient did not sleep last night, took Ativan and Seroquel 12.5mg PRN at around 0300. Bilateral ankle edema appears to improve compare to the past. 08/31: Active on unit. continues on 1:. Awaiting on court documents stating affirming of HCP. Patient continues with rapid speech, hyperverbal. Circumstantial. Flight of ideas. Focused on ex- and ex-partner; believes she is in danger from her ex-boyfriend. Pt stated, How does he know where I am? ; pt was reminded she has contacted him multiple times from the unit phone. Pt talking over T/W, continuously interrupting. medication compliant last evening and this morning; encouraged to continue being medication compliant. Patient was informed HCP was affirmed. Continue tx plan. 09/01: Active on unit. continues on 1:. medication compliant. Patient continues with rapid speech, hyperverbal. Circumstantial. Flight of ideas. Appears slowed today from previous days. Showered. Per nursing, pt slept 2 hours last night. Hospital received court documents of HCP affirmed; pt notified. Magnesium citrate ordered to help with bowel movement. Encinal changed from BID to Encinal ER 900mg PO bedtime. Changing to once of day to assist with medication compliance. Trileptal decreased to 300mg PO bedtime; plan to taper off. DC Seroquel; does not seem to be helping with mood. Start: Klonopin 1mg PO bedtime to help with sleep. Thorazine 25mg PO TID PRN agitation/anxiety/psychosis Thorazine 25mg IM bedtime PRN if pt refuses Encinal PO; reviewed with HCP and agreed to treatment plan; pt aware. T/W spoke with patient's HCP via phone. Informed consent received from HCP, Paul Carroll, regarding treatment plan. 09/02: Continues on 1:1. medication compliant. Patient reports she had a bowel movement yesterday. Patient continues with rapid speech, hyperverbal. Circumstantial. Flight of ideas. Difficult to follow conversation. Per nursing, pt slept 4 hours last night. Continue tx plan. 09/03: wants her Primary treatment team to speak with her outpatient psychiatrist Dr. Chris Maldonado at [phone] (reports he communicates with his cell rather than office number), so team can discuss medication history and treatment planning. 09/04/2025: No changes to current Treatment plan. Reason for continued inpatient stay Substantial Risk for: rapid decompensation Time Spent With Patient Time: Total time managing care of this patient today ____ minutes.
[2025-09-04 21:37] VITALS: BP 155/80; PULSE 61; RESP 16; TEMP 36.7; O2SAT 97
[2025-09-05 07:10] VITALS: BP 131/73; PULSE 60; RESP 18; TEMP 36.3; O2SAT 100
[2025-09-05] MEDS: Nystatin Oral Susp 500,000 UNIT/5 ML ORAL.SUSP 500000 UNIT PO ×4 (09:49→22:31)
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
[2025-09-05 20:00] VITALS: BP 128/58; PULSE 60; RESP 16; TEMP 37; O2SAT 100
[2025-09-06 07:30] VITALS: BP 138/70; PULSE 64; RESP 20; TEMP 36.2; O2SAT 98
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
[2025-09-06] MEDS: Nystatin Oral Susp 500,000 UNIT/5 ML ORAL.SUSP 500000 UNIT PO ×3 (09:46→21:26)
[2025-09-06 20:35] VITALS: BP 145/66; PULSE 61; RESP 16; TEMP 36.2; O2SAT 98
[2025-09-06 21:26] VITALS: BP 145/66
[2025-09-07 07:58] VITALS: BP 106/60; PULSE 55; RESP 16; TEMP 36.7; O2SAT 99
[2025-09-07 08:00] LABS: Lithium 0.80 mmol/L (0.60-1.20)
[2025-09-07 08:10] LABS: Anion Gap 11 (12-20); Blood Urea Nitrogen 22 mg/dL (9-16); Carbon Dioxide 29 mmol/L (22-29); Chloride 107 mmol/L (96-108); Creatinine Clr Calc Pharmacy 74.0; Estimated Glomerular Filt Rate > 60; Potassium 4.7 mmol/L (3.3-5.1); Sodium 142 mmol/L (135-145)
[2025-09-07] MEDS: Nystatin Oral Susp 500,000 UNIT/5 ML ORAL.SUSP 500000 UNIT PO ×3 (08:56→21:09)
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
[2025-09-07 20:00] VITALS: BP 119/67; PULSE 60; RESP 16; TEMP 36.8; O2SAT 100
[2025-09-08 07:00] VITALS: BMI 26.3
[2025-09-08 07:10] VITALS: BP 96/65; PULSE 60; RESP 16; TEMP 36.3; O2SAT 97
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
[2025-09-08] MEDS: Nystatin Oral Susp 500,000 UNIT/5 ML ORAL.SUSP 500000 UNIT PO ×4 (09:07→23:17)
[2025-09-08] MEDS: Milk of Magnesia 30 ML ORAL.SUSP PO (14:19)
[2025-09-08 20:00] VITALS: RESP 16
[2025-09-08 23:19] VITALS: BP 136/68
[2025-09-09 07:34] VITALS: BP 110/60; PULSE 57; RESP 20; TEMP 36.2; O2SAT 99
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
[2025-09-09] MEDS: Nystatin Oral Susp 500,000 UNIT/5 ML ORAL.SUSP 500000 UNIT PO ×3 (10:15→22:39)
[2025-09-09] MEDS: Milk of Magnesia 30 ML ORAL.SUSP PO (10:20)
[2025-09-09 20:20] VITALS: BP 109/69; PULSE 58; RESP 16; TEMP 36.4; O2SAT 99
[2025-09-09 22:40] VITALS: BP 140/75
[2025-09-10 08:00] VITALS: BP 110/60; PULSE 57; RESP 18; TEMP 36.3; O2SAT 99
[2025-09-10] MEDS: Nystatin Oral Susp 500,000 UNIT/5 ML ORAL.SUSP 500000 UNIT PO ×4 (09:55→22:22)
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
[2025-09-10 19:19] VITALS: BP 144/64; PULSE 60; RESP 16; TEMP 36.2; O2SAT 99
[2025-09-10 22:22] VITALS: BP 107/66
[2025-09-11 08:00] VITALS: BP 114/69; PULSE 56; RESP 18; TEMP 36.4; O2SAT 98
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
[2025-09-11 08:56] LABS: Lithium 1.03 mmol/L (0.60-1.20)
[2025-09-11] MEDS: Nystatin Oral Susp 500,000 UNIT/5 ML ORAL.SUSP 500000 UNIT PO ×4 (09:14→21:06)
[2025-09-11 20:00] VITALS: BP 145/71; PULSE 60; RESP 16; TEMP 36.8; O2SAT 98
[2025-09-12 07:44] VITALS: BP 143/60; PULSE 58; RESP 18; TEMP 36.2; O2SAT 99
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
[2025-09-12] MEDS: Nystatin Oral Susp 500,000 UNIT/5 ML ORAL.SUSP 500000 UNIT PO ×4 (08:39→22:20)
[2025-09-12 20:00] VITALS: BP 109/66; PULSE 60; RESP 16; TEMP 36.3; O2SAT 99
[2025-09-13 08:00] VITALS: BP 140/84; PULSE 58; RESP 16; TEMP 36; O2SAT 93
[2025-09-13] MEDS: Nystatin Oral Susp 500,000 UNIT/5 ML ORAL.SUSP 500000 UNIT PO ×4 (09:06→22:11)
[2025-09-13 10:53] LABS: Anion Gap 9 (12-20); Blood Urea Nitrogen 18 mg/dL (9-16); Carbon Dioxide 28 mmol/L (22-29); Chloride 107 mmol/L (96-108); Creatinine Clr Calc Pharmacy 74.6; Estimated Glomerular Filt Rate > 60; Potassium 4.3 mmol/L (3.3-5.1); Sodium 140 mmol/L (135-145)
[2025-09-13 11:11] LABS: Lithium 0.88 mmol/L (0.60-1.20)
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
[2025-09-13 20:00] VITALS: BP 114/67; PULSE 58; RESP 16; TEMP 36.7; O2SAT 99
[2025-09-14 07:57] VITALS: BP 118/61; PULSE 60; RESP 20; TEMP 36.4; O2SAT 99
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
[2025-09-14] MEDS: Nystatin Oral Susp 500,000 UNIT/5 ML ORAL.SUSP 500000 UNIT PO ×4 (09:01→22:07)
[2025-09-14 20:00] VITALS: BP 117/63; PULSE 60; RESP 16; TEMP 36.6; O2SAT 94
[2025-09-14 22:10] VITALS: BP 117/63
[2025-09-15 07:00] VITALS: BMI 26.1
[2025-09-15 07:55] VITALS: BP 134/73; PULSE 57; RESP 16; TEMP 36.2; O2SAT 97
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
[2025-09-15] MEDS: Nystatin Oral Susp 500,000 UNIT/5 ML ORAL.SUSP 500000 UNIT PO (10:05)
== END 2025-09-15 10:55 | disposition home or self-care (01) | DRG 885 ==
PROVIDERS: Nurse Practitioner Psychiatric/Mental Health; Psychiatry & Neurology Psychiatry; Admitting Provider Psychiatry & Neurology Psychiatry; Responsible Provider Registered Nurse; Visit Provider Psychiatry & Neurology Psychiatry
DX: F31.13 Bipolar disorder, current episode manic without psychotic features, severe (principal); F43.10 Post-traumatic stress disorder, unspecified; M19.90 Unspecified osteoarthritis, unspecified site; Z78.1 Physical restraint status; Z79.899 Other long term (current) drug therapy
CPT/HCPCS: 36415; 80048; 80051; 80053; 80061; 80076; 80178; 82140; 82565; 83036; 84439; 84443; 84520; 85025; 86376; 86704; 86706; 86709; 86803; 87340; J0515; J1200; J1630; J2060; J2359; J3230; J3360

== ENCOUNTER → 2025-08-09 20:33 | Outpatient (BNV) | payer OTHER, SELFPAY | PROVIDERS: Admitting Provider Psychiatry & Neurology Psychiatry; Visit Provider Nurse Practitioner Psychiatric/Mental Health | DX: F31.10 Bipolar disorder, current episode manic without psychotic features, unspecified (principal); F43.10 Post-traumatic stress disorder, unspecified; M19.90 Unspecified osteoarthritis, unspecified site | CPT/HCPCS: 90792 ==

== ENCOUNTER → 2025-08-09 20:33 | Outpatient (BNV) | payer OTHER, SELFPAY | PROVIDERS: Admitting Provider Psychiatry & Neurology Psychiatry; Visit Provider Nurse Practitioner Family | DX: M19.90 Unspecified osteoarthritis, unspecified site (principal) | CPT/HCPCS: 99221 ==